=== PATIENT | male | born 1955 | race American Indian/Alaskan Native ===

== ENCOUNTER 2016-02-29 09:15 | Outpatient (CLI) | payer OTHER ==
[~2016-02-29 09:15] MED LIST: XYLOCAINE TOPICAL 4% TP ONE
[2016-02-29] MEDS ORDERED: XYLOCAINE TOPICAL 4% TP ONE ×2 (10:00→12:08)
== END 2016-02-29 09:16 | disposition home or self-care (01) ==
LOC: WOUND 09:15
PROVIDERS: ATTEND Internal Medicine
DX: E11.621 Type 2 diabetes mellitus with foot ulcer (principal); L97.511 Non-pressure chronic ulcer of other part of right foot limited to breakdown of skin; E11.40 Type 2 diabetes mellitus with diabetic neuropathy, unspecified; M86.68 Other chronic osteomyelitis, other site; I10 Essential (primary) hypertension; E78.00 Pure hypercholesterolemia, unspecified; Z87.891 Personal history of nicotine dependence

== ENCOUNTER 2016-03-14 09:16 | Outpatient (CLI) | payer OTHER ==
[2016-03-14] MEDS ORDERED: XYLOCAINE TOPICAL 2% ONE (09:39)
[2016-03-14] MEDS ORDERED: XYLOCAINE TOPICAL 2% TP ONE (14:29)
== END 2016-03-14 09:17 | disposition home or self-care (01) ==
LOC: WOUND 09:16
PROVIDERS: ATTEND Podiatrist
DX: E11.621 Type 2 diabetes mellitus with foot ulcer (principal); L97.513 Non-pressure chronic ulcer of other part of right foot with necrosis of muscle; E11.40 Type 2 diabetes mellitus with diabetic neuropathy, unspecified; E11.69 Type 2 diabetes mellitus with other specified complication; I10 Essential (primary) hypertension; E78.00 Pure hypercholesterolemia, unspecified; M86.9 Osteomyelitis, unspecified; Z87.891 Personal history of nicotine dependence

== ENCOUNTER 2016-03-17 07:47 | Outpatient (CLI) | payer OTHER | END 2016-03-17 07:48 | disposition home or self-care (01) | LOC: WOUND 07:47 | PROVIDERS: ATTEND Orthopaedic Surgery | DX: E11.621 Type 2 diabetes mellitus with foot ulcer (principal); L97.513 Non-pressure chronic ulcer of other part of right foot with necrosis of muscle; E11.40 Type 2 diabetes mellitus with diabetic neuropathy, unspecified; I10 Essential (primary) hypertension; E78.00 Pure hypercholesterolemia, unspecified; E11.69 Type 2 diabetes mellitus with other specified complication; M86.68 Other chronic osteomyelitis, other site; M86.9 Osteomyelitis, unspecified; Z87.891 Personal history of nicotine dependence | CPT/HCPCS: 82962; G0277; 99183 ==

== ENCOUNTER 2016-03-18 07:45 | Outpatient (CLI) | payer OTHER | END 2016-03-18 07:46 | disposition home or self-care (01) | LOC: WOUND 07:45 | PROVIDERS: ATTEND Podiatrist | DX: E11.621 Type 2 diabetes mellitus with foot ulcer (principal); L97.513 Non-pressure chronic ulcer of other part of right foot with necrosis of muscle; E11.40 Type 2 diabetes mellitus with diabetic neuropathy, unspecified; E11.69 Type 2 diabetes mellitus with other specified complication; M86.68 Other chronic osteomyelitis, other site; I10 Essential (primary) hypertension; E78.00 Pure hypercholesterolemia, unspecified; Z87.891 Personal history of nicotine dependence | CPT/HCPCS: 82962; G0277; 99183 ==

== ENCOUNTER 2016-03-19 07:47 | Outpatient (CLI) | payer OTHER | END 2016-03-19 07:48 | disposition home or self-care (01) | LOC: WOUND 07:47 | PROVIDERS: ATTEND Orthopaedic Surgery | DX: E11.621 Type 2 diabetes mellitus with foot ulcer (principal); L97.513 Non-pressure chronic ulcer of other part of right foot with necrosis of muscle; E11.40 Type 2 diabetes mellitus with diabetic neuropathy, unspecified; E11.69 Type 2 diabetes mellitus with other specified complication; M86.68 Other chronic osteomyelitis, other site; E78.00 Pure hypercholesterolemia, unspecified; I10 Essential (primary) hypertension; Z87.891 Personal history of nicotine dependence | CPT/HCPCS: 82962; G0277; 99183 ==

== ENCOUNTER 2016-03-20 07:44 | Outpatient (CLI) | payer OTHER | END 2016-03-20 07:45 | disposition home or self-care (01) | LOC: WOUND 07:44 | PROVIDERS: ATTEND Orthopaedic Surgery | DX: E11.621 Type 2 diabetes mellitus with foot ulcer (principal); L97.513 Non-pressure chronic ulcer of other part of right foot with necrosis of muscle; E11.40 Type 2 diabetes mellitus with diabetic neuropathy, unspecified; I10 Essential (primary) hypertension; M86.68 Other chronic osteomyelitis, other site; E78.00 Pure hypercholesterolemia, unspecified; E11.69 Type 2 diabetes mellitus with other specified complication; M86.9 Osteomyelitis, unspecified; Z87.891 Personal history of nicotine dependence | CPT/HCPCS: 82962; G0277; 99183 ==

== ENCOUNTER 2016-03-21 07:53 | Outpatient (CLI) | payer OTHER ==
[2016-03-21] MEDS ORDERED: XYLOCAINE TOPICAL 2% ONE (10:33)
[2016-03-21] MEDS ORDERED: XYLOCAINE TOPICAL 2% TP ONE (14:29)
== END 2016-03-21 07:54 | disposition home or self-care (01) ==
LOC: WOUND 07:53
PROVIDERS: ATTEND Podiatrist
DX: E11.621 Type 2 diabetes mellitus with foot ulcer (principal); L97.511 Non-pressure chronic ulcer of other part of right foot limited to breakdown of skin; E11.40 Type 2 diabetes mellitus with diabetic neuropathy, unspecified; E11.69 Type 2 diabetes mellitus with other specified complication; M86.68 Other chronic osteomyelitis, other site; Z87.891 Personal history of nicotine dependence
CPT/HCPCS: 11043; 82962; G0277; 99183

== ENCOUNTER 2016-03-24 07:51 | Outpatient (CLI) | payer OTHER | END 2016-03-24 07:52 | disposition home or self-care (01) | LOC: WOUND 07:51 | PROVIDERS: ATTEND Internal Medicine | DX: E11.621 Type 2 diabetes mellitus with foot ulcer (principal); L97.513 Non-pressure chronic ulcer of other part of right foot with necrosis of muscle; E11.40 Type 2 diabetes mellitus with diabetic neuropathy, unspecified; E11.69 Type 2 diabetes mellitus with other specified complication; M86.68 Other chronic osteomyelitis, other site; I10 Essential (primary) hypertension; E78.00 Pure hypercholesterolemia, unspecified; Z87.891 Personal history of nicotine dependence | CPT/HCPCS: G0277 ×2; 82962; 99183 ==

== ENCOUNTER 2016-03-25 07:48 | Outpatient (CLI) | payer OTHER | END 2016-03-25 07:49 | disposition home or self-care (01) | LOC: WOUND 07:48 | PROVIDERS: ATTEND Podiatrist | DX: E11.621 Type 2 diabetes mellitus with foot ulcer (principal); L97.513 Non-pressure chronic ulcer of other part of right foot with necrosis of muscle; E11.40 Type 2 diabetes mellitus with diabetic neuropathy, unspecified; E11.69 Type 2 diabetes mellitus with other specified complication; M86.68 Other chronic osteomyelitis, other site; I10 Essential (primary) hypertension; E78.00 Pure hypercholesterolemia, unspecified; Z87.891 Personal history of nicotine dependence | CPT/HCPCS: 82962; G0277; 99183 ==

== ENCOUNTER 2016-03-26 13:29 | Outpatient (CLI) | payer OTHER | END 2016-03-26 13:30 | disposition home or self-care (01) | LOC: WOUND 13:29 | PROVIDERS: ATTEND Internal Medicine | DX: E11.621 Type 2 diabetes mellitus with foot ulcer (principal); L97.513 Non-pressure chronic ulcer of other part of right foot with necrosis of muscle; E11.40 Type 2 diabetes mellitus with diabetic neuropathy, unspecified; E11.69 Type 2 diabetes mellitus with other specified complication; M86.68 Other chronic osteomyelitis, other site; I10 Essential (primary) hypertension; E78.00 Pure hypercholesterolemia, unspecified; Z87.891 Personal history of nicotine dependence | CPT/HCPCS: 82962; G0277; 99183 ==

== ENCOUNTER 2016-03-27 07:44 | Outpatient (CLI) | payer OTHER | END 2016-03-27 07:45 | disposition home or self-care (01) | LOC: WOUND 07:44 | PROVIDERS: ATTEND Internal Medicine | DX: E11.621 Type 2 diabetes mellitus with foot ulcer (principal); L97.511 Non-pressure chronic ulcer of other part of right foot limited to breakdown of skin; E11.40 Type 2 diabetes mellitus with diabetic neuropathy, unspecified; E11.69 Type 2 diabetes mellitus with other specified complication; M86.68 Other chronic osteomyelitis, other site; I10 Essential (primary) hypertension; E08.8 Diabetes mellitus due to underlying condition with unspecified complications; E78.00 Pure hypercholesterolemia, unspecified; Z87.891 Personal history of nicotine dependence | CPT/HCPCS: 82962; G0277; 99183 ==

== ENCOUNTER 2016-03-28 08:12 | Outpatient (CLI) | payer OTHER ==
[2016-03-28] MEDS ORDERED: XYLOCAINE TOPICAL 2% ONE (10:30)
[2016-03-28] MEDS ORDERED: XYLOCAINE TOPICAL 2% TP ONE (14:16)
== END 2016-03-28 08:13 | disposition home or self-care (01) ==
LOC: WOUND 08:12
PROVIDERS: ATTEND Podiatrist
DX: E11.621 Type 2 diabetes mellitus with foot ulcer (principal); L97.513 Non-pressure chronic ulcer of other part of right foot with necrosis of muscle; E11.69 Type 2 diabetes mellitus with other specified complication; M86.68 Other chronic osteomyelitis, other site; E11.40 Type 2 diabetes mellitus with diabetic neuropathy, unspecified; I10 Essential (primary) hypertension; L84 Corns and callosities; M20.40 Other hammer toe(s) (acquired), unspecified foot; E78.00 Pure hypercholesterolemia, unspecified; Z87.891 Personal history of nicotine dependence
CPT/HCPCS: 11044; G0277; 82962; 99183

== ENCOUNTER 2016-03-31 07:55 | Outpatient (CLI) | payer OTHER ==
[2016-03-31] MEDS ORDERED: XYLOCAINE TOPICAL 2% TP ONE (11:35)
== END 2016-03-31 07:56 | disposition home or self-care (01) ==
LOC: WOUND 07:55
PROVIDERS: ATTEND Internal Medicine
DX: E11.621 Type 2 diabetes mellitus with foot ulcer (principal); L97.511 Non-pressure chronic ulcer of other part of right foot limited to breakdown of skin; E11.40 Type 2 diabetes mellitus with diabetic neuropathy, unspecified; E11.69 Type 2 diabetes mellitus with other specified complication; M86.68 Other chronic osteomyelitis, other site; I10 Essential (primary) hypertension; E08.8 Diabetes mellitus due to underlying condition with unspecified complications; E78.00 Pure hypercholesterolemia, unspecified; Z87.891 Personal history of nicotine dependence
CPT/HCPCS: 82962; G0277; 99183

== ENCOUNTER 2016-04-01 08:04 | Outpatient (CLI) | payer OTHER | END 2016-04-01 08:05 | disposition home or self-care (01) | LOC: WOUND 08:04 | PROVIDERS: ATTEND Podiatrist | DX: E11.621 Type 2 diabetes mellitus with foot ulcer (principal); L97.513 Non-pressure chronic ulcer of other part of right foot with necrosis of muscle; E11.40 Type 2 diabetes mellitus with diabetic neuropathy, unspecified; E11.69 Type 2 diabetes mellitus with other specified complication; M86.68 Other chronic osteomyelitis, other site; I10 Essential (primary) hypertension; E78.00 Pure hypercholesterolemia, unspecified; Z87.891 Personal history of nicotine dependence | CPT/HCPCS: G0277 ×2; 82962; 99183 ==

== ENCOUNTER 2016-04-02 07:41 | Outpatient (CLI) | payer OTHER | END 2016-04-02 07:42 | disposition home or self-care (01) | LOC: WOUND 07:41 | PROVIDERS: ATTEND Internal Medicine | DX: E11.621 Type 2 diabetes mellitus with foot ulcer (principal); L97.511 Non-pressure chronic ulcer of other part of right foot limited to breakdown of skin; E11.40 Type 2 diabetes mellitus with diabetic neuropathy, unspecified; E11.69 Type 2 diabetes mellitus with other specified complication; M86.68 Other chronic osteomyelitis, other site; I10 Essential (primary) hypertension; E78.00 Pure hypercholesterolemia, unspecified; Z87.891 Personal history of nicotine dependence | CPT/HCPCS: 82962; G0277; 99183 ==

== ENCOUNTER 2016-04-03 07:44 | Outpatient (CLI) | payer OTHER | END 2016-04-03 07:45 | disposition home or self-care (01) | LOC: WOUND 07:44 | PROVIDERS: ATTEND Internal Medicine | DX: E11.621 Type 2 diabetes mellitus with foot ulcer (principal); L97.513 Non-pressure chronic ulcer of other part of right foot with necrosis of muscle; E11.40 Type 2 diabetes mellitus with diabetic neuropathy, unspecified; E11.69 Type 2 diabetes mellitus with other specified complication; E78.00 Pure hypercholesterolemia, unspecified; I10 Essential (primary) hypertension; M86.68 Other chronic osteomyelitis, other site; Z87.891 Personal history of nicotine dependence | CPT/HCPCS: 82962; G0277; 99183 ==

== ENCOUNTER 2016-04-04 07:40 | Outpatient (CLI) | payer OTHER ==
[2016-04-04] MEDS ORDERED: XYLOCAINE TOPICAL 4% TP ONE ×2 (10:33→11:02)
== END 2016-04-04 07:41 | disposition home or self-care (01) ==
LOC: WOUND 07:40
PROVIDERS: ATTEND Podiatrist
DX: E11.621 Type 2 diabetes mellitus with foot ulcer (principal); L97.513 Non-pressure chronic ulcer of other part of right foot with necrosis of muscle; E11.40 Type 2 diabetes mellitus with diabetic neuropathy, unspecified; E11.69 Type 2 diabetes mellitus with other specified complication; M86.68 Other chronic osteomyelitis, other site; I10 Essential (primary) hypertension; M20.41 Other hammer toe(s) (acquired), right foot; E78.00 Pure hypercholesterolemia, unspecified; Z87.891 Personal history of nicotine dependence
CPT/HCPCS: 11044; 88304; 88307; 88311; G0277; 82962; 99183

== ENCOUNTER 2016-04-07 07:52 | Outpatient (CLI) | payer OTHER | END 2016-04-07 07:53 | disposition home or self-care (01) | LOC: WOUND 07:52 | PROVIDERS: ATTEND Internal Medicine | DX: E11.621 Type 2 diabetes mellitus with foot ulcer (principal); L97.513 Non-pressure chronic ulcer of other part of right foot with necrosis of muscle; E11.40 Type 2 diabetes mellitus with diabetic neuropathy, unspecified; I10 Essential (primary) hypertension; E78.00 Pure hypercholesterolemia, unspecified; E11.69 Type 2 diabetes mellitus with other specified complication; M86.9 Osteomyelitis, unspecified; Z87.891 Personal history of nicotine dependence | CPT/HCPCS: 82962; G0277; 99183 ==

== ENCOUNTER 2016-04-08 07:51 | Outpatient (CLI) | payer OTHER | END 2016-04-08 07:52 | disposition home or self-care (01) | LOC: WOUND 07:51 | PROVIDERS: ATTEND Podiatrist | DX: E11.621 Type 2 diabetes mellitus with foot ulcer (principal); L97.513 Non-pressure chronic ulcer of other part of right foot with necrosis of muscle; E11.40 Type 2 diabetes mellitus with diabetic neuropathy, unspecified; E11.69 Type 2 diabetes mellitus with other specified complication; M86.68 Other chronic osteomyelitis, other site; I10 Essential (primary) hypertension; E78.00 Pure hypercholesterolemia, unspecified; Z87.891 Personal history of nicotine dependence | CPT/HCPCS: 82962; G0277; 99183 ==

== ENCOUNTER 2016-04-09 08:07 | Outpatient (CLI) | payer OTHER | END 2016-04-09 08:08 | disposition home or self-care (01) | LOC: WOUND 08:07 | PROVIDERS: ATTEND Internal Medicine | DX: E11.621 Type 2 diabetes mellitus with foot ulcer (principal); L97.513 Non-pressure chronic ulcer of other part of right foot with necrosis of muscle; E11.40 Type 2 diabetes mellitus with diabetic neuropathy, unspecified; E11.69 Type 2 diabetes mellitus with other specified complication; M86.68 Other chronic osteomyelitis, other site; I10 Essential (primary) hypertension; E78.00 Pure hypercholesterolemia, unspecified; Z87.891 Personal history of nicotine dependence | CPT/HCPCS: G0277 ×2; 82962; 99183 ==

== ENCOUNTER 2016-04-10 08:00 | Outpatient (CLI) | payer OTHER | END 2016-04-10 08:01 | disposition home or self-care (01) | LOC: WOUND 08:00 | PROVIDERS: ATTEND Internal Medicine | DX: E11.621 Type 2 diabetes mellitus with foot ulcer (principal); L97.513 Non-pressure chronic ulcer of other part of right foot with necrosis of muscle; E11.40 Type 2 diabetes mellitus with diabetic neuropathy, unspecified; E11.69 Type 2 diabetes mellitus with other specified complication; M86.68 Other chronic osteomyelitis, other site; I10 Essential (primary) hypertension; E78.00 Pure hypercholesterolemia, unspecified | CPT/HCPCS: 82962; G0277; 99183 ==

== ENCOUNTER 2016-04-14 07:51 | Outpatient (CLI) | payer OTHER | END 2016-04-14 07:52 | disposition home or self-care (01) | LOC: WOUND 07:51 | PROVIDERS: ATTEND Internal Medicine | DX: E11.621 Type 2 diabetes mellitus with foot ulcer (principal); L97.513 Non-pressure chronic ulcer of other part of right foot with necrosis of muscle; E11.40 Type 2 diabetes mellitus with diabetic neuropathy, unspecified; E11.69 Type 2 diabetes mellitus with other specified complication; M86.68 Other chronic osteomyelitis, other site; I10 Essential (primary) hypertension; E78.00 Pure hypercholesterolemia, unspecified; Z87.891 Personal history of nicotine dependence | CPT/HCPCS: 82962; G0277; 99183 ==

== ENCOUNTER 2016-04-15 07:42 | Outpatient (CLI) | payer OTHER | END 2016-04-15 07:43 | disposition home or self-care (01) | LOC: WOUND 07:42 | PROVIDERS: ATTEND Podiatrist | DX: E11.621 Type 2 diabetes mellitus with foot ulcer (principal); L97.513 Non-pressure chronic ulcer of other part of right foot with necrosis of muscle; E11.40 Type 2 diabetes mellitus with diabetic neuropathy, unspecified; E11.69 Type 2 diabetes mellitus with other specified complication; M86.68 Other chronic osteomyelitis, other site; I10 Essential (primary) hypertension; E78.00 Pure hypercholesterolemia, unspecified; Z87.891 Personal history of nicotine dependence | CPT/HCPCS: 82962; G0277; 99183 ==

== ENCOUNTER 2016-04-16 07:39 | Outpatient (CLI) | payer OTHER | END 2016-04-16 07:40 | disposition home or self-care (01) | LOC: WOUND 07:39 | PROVIDERS: ATTEND Internal Medicine | DX: E11.621 Type 2 diabetes mellitus with foot ulcer (principal); L97.513 Non-pressure chronic ulcer of other part of right foot with necrosis of muscle; E11.40 Type 2 diabetes mellitus with diabetic neuropathy, unspecified; I10 Essential (primary) hypertension; E11.69 Type 2 diabetes mellitus with other specified complication; M86.68 Other chronic osteomyelitis, other site; E78.00 Pure hypercholesterolemia, unspecified; Z87.891 Personal history of nicotine dependence | CPT/HCPCS: 82962; G0277; 99183 ==

== ENCOUNTER 2016-04-17 07:37 | Outpatient (CLI) | payer OTHER | END 2016-04-17 07:38 | disposition home or self-care (01) | LOC: WOUND 07:37 | PROVIDERS: ATTEND Nurse Practitioner | DX: E11.621 Type 2 diabetes mellitus with foot ulcer (principal); L97.513 Non-pressure chronic ulcer of other part of right foot with necrosis of muscle; E11.40 Type 2 diabetes mellitus with diabetic neuropathy, unspecified; E11.69 Type 2 diabetes mellitus with other specified complication; M86.68 Other chronic osteomyelitis, other site; I10 Essential (primary) hypertension; E78.00 Pure hypercholesterolemia, unspecified; Z87.891 Personal history of nicotine dependence | CPT/HCPCS: 82962; G0277; 99183 ==

== ENCOUNTER 2016-04-18 07:49 | Outpatient (CLI) | payer OTHER ==
[2016-04-18] MEDS ORDERED: XYLOCAINE TOPICAL 2% ONE (11:51)
[2016-04-18] MEDS ORDERED: XYLOCAINE TOPICAL 2% TP ONE (16:03)
== END 2016-04-18 07:50 | disposition home or self-care (01) ==
LOC: WOUND 07:49
PROVIDERS: ATTEND Podiatrist
DX: E11.621 Type 2 diabetes mellitus with foot ulcer (principal); L97.513 Non-pressure chronic ulcer of other part of right foot with necrosis of muscle; E11.40 Type 2 diabetes mellitus with diabetic neuropathy, unspecified; I10 Essential (primary) hypertension; E11.69 Type 2 diabetes mellitus with other specified complication; M86.68 Other chronic osteomyelitis, other site; L84 Corns and callosities; E78.00 Pure hypercholesterolemia, unspecified; Z87.891 Personal history of nicotine dependence
CPT/HCPCS: 11043; 82962; 88304; 88311; G0277; 99183

== ENCOUNTER 2016-04-21 07:56 | Outpatient (CLI) | payer OTHER | END 2016-04-21 07:57 | disposition home or self-care (01) | LOC: WOUND 07:56 | PROVIDERS: ATTEND Internal Medicine | DX: E11.621 Type 2 diabetes mellitus with foot ulcer (principal); L97.511 Non-pressure chronic ulcer of other part of right foot limited to breakdown of skin; E11.40 Type 2 diabetes mellitus with diabetic neuropathy, unspecified; E11.69 Type 2 diabetes mellitus with other specified complication; M86.68 Other chronic osteomyelitis, other site; I10 Essential (primary) hypertension; E78.00 Pure hypercholesterolemia, unspecified; F17.210 Nicotine dependence, cigarettes, uncomplicated | CPT/HCPCS: 82962; G0277; 99183 ==

== ENCOUNTER 2016-04-22 07:47 | Outpatient (CLI) | payer OTHER | END 2016-04-22 07:48 | disposition home or self-care (01) | LOC: WOUND 07:47 | PROVIDERS: ATTEND Podiatrist | DX: E11.621 Type 2 diabetes mellitus with foot ulcer (principal); L97.513 Non-pressure chronic ulcer of other part of right foot with necrosis of muscle; E11.40 Type 2 diabetes mellitus with diabetic neuropathy, unspecified; I10 Essential (primary) hypertension; E11.69 Type 2 diabetes mellitus with other specified complication; M86.8X8 Other osteomyelitis, other site; E78.00 Pure hypercholesterolemia, unspecified; Z87.891 Personal history of nicotine dependence | CPT/HCPCS: 82962; G0277; 99183 ==

== ENCOUNTER 2016-04-25 07:54 | Outpatient (CLI) | payer OTHER | END 2016-04-25 07:55 | disposition home or self-care (01) | LOC: WOUND 07:54 | PROVIDERS: ATTEND Podiatrist | DX: E11.621 Type 2 diabetes mellitus with foot ulcer (principal); L97.513 Non-pressure chronic ulcer of other part of right foot with necrosis of muscle; E11.40 Type 2 diabetes mellitus with diabetic neuropathy, unspecified; E11.69 Type 2 diabetes mellitus with other specified complication; M86.68 Other chronic osteomyelitis, other site; I10 Essential (primary) hypertension; E78.00 Pure hypercholesterolemia, unspecified; Z87.891 Personal history of nicotine dependence | CPT/HCPCS: 11043; 82962; G0277; 99183 ==

== ENCOUNTER 2016-05-01 07:43 | Outpatient (CLI) | payer OTHER | END 2016-05-01 07:44 | disposition home or self-care (01) | LOC: WOUND 07:43 | PROVIDERS: ATTEND Internal Medicine | DX: E11.621 Type 2 diabetes mellitus with foot ulcer (principal); L97.513 Non-pressure chronic ulcer of other part of right foot with necrosis of muscle; E11.40 Type 2 diabetes mellitus with diabetic neuropathy, unspecified; M86.68 Other chronic osteomyelitis, other site; I10 Essential (primary) hypertension; E78.00 Pure hypercholesterolemia, unspecified; Z87.891 Personal history of nicotine dependence | CPT/HCPCS: 82962; G0277; 99183 ==

== ENCOUNTER 2016-05-05 07:56 | Outpatient (CLI) | payer OTHER | END 2016-05-05 07:57 | disposition home or self-care (01) | LOC: WOUND 07:56 | PROVIDERS: ATTEND Internal Medicine | DX: E11.621 Type 2 diabetes mellitus with foot ulcer (principal); L97.513 Non-pressure chronic ulcer of other part of right foot with necrosis of muscle; E11.40 Type 2 diabetes mellitus with diabetic neuropathy, unspecified; E11.69 Type 2 diabetes mellitus with other specified complication; M86.8X8 Other osteomyelitis, other site; I10 Essential (primary) hypertension; E78.00 Pure hypercholesterolemia, unspecified; Z87.891 Personal history of nicotine dependence | CPT/HCPCS: 82962; G0277; 99183 ==

== ENCOUNTER 2016-05-06 08:00 | Outpatient (CLI) | payer OTHER | END 2016-05-06 08:01 | disposition home or self-care (01) | LOC: WOUND 08:00 | PROVIDERS: ATTEND Podiatrist | DX: E11.621 Type 2 diabetes mellitus with foot ulcer (principal); L97.513 Non-pressure chronic ulcer of other part of right foot with necrosis of muscle; E11.40 Type 2 diabetes mellitus with diabetic neuropathy, unspecified; E11.69 Type 2 diabetes mellitus with other specified complication; M86.68 Other chronic osteomyelitis, other site; I10 Essential (primary) hypertension; E78.00 Pure hypercholesterolemia, unspecified; Z87.891 Personal history of nicotine dependence | CPT/HCPCS: 82962; G0277; 99183 ==

== ENCOUNTER 2016-05-07 08:05 | Outpatient (CLI) | payer OTHER | END 2016-05-07 08:06 | disposition home or self-care (01) | LOC: WOUND 08:05 | PROVIDERS: ATTEND Internal Medicine | DX: E11.621 Type 2 diabetes mellitus with foot ulcer (principal); L97.513 Non-pressure chronic ulcer of other part of right foot with necrosis of muscle; E11.40 Type 2 diabetes mellitus with diabetic neuropathy, unspecified; I10 Essential (primary) hypertension; E11.69 Type 2 diabetes mellitus with other specified complication; M86.8X8 Other osteomyelitis, other site; Q89.9 Congenital malformation, unspecified; E78.00 Pure hypercholesterolemia, unspecified; Z87.891 Personal history of nicotine dependence | CPT/HCPCS: 82962; G0277; 99183; 99214; G0463 ==

== ENCOUNTER 2016-05-08 07:45 | Outpatient (CLI) | payer OTHER | END 2016-05-08 07:46 | disposition home or self-care (01) | LOC: WOUND 07:45 | PROVIDERS: ATTEND Internal Medicine | DX: E11.621 Type 2 diabetes mellitus with foot ulcer (principal); L97.511 Non-pressure chronic ulcer of other part of right foot limited to breakdown of skin; E11.40 Type 2 diabetes mellitus with diabetic neuropathy, unspecified; E11.69 Type 2 diabetes mellitus with other specified complication; M86.68 Other chronic osteomyelitis, other site; I10 Essential (primary) hypertension; E78.00 Pure hypercholesterolemia, unspecified; Z87.891 Personal history of nicotine dependence | CPT/HCPCS: G0277 ×2; 82962; 99183 ==

== ENCOUNTER 2016-05-09 07:54 | Outpatient (CLI) | payer OTHER ==
[2016-05-09] MEDS ORDERED: XYLOCAINE TOPICAL 4% TP ONE ×2 (10:59→11:26)
== END 2016-05-09 07:55 | disposition home or self-care (01) ==
LOC: WOUND 07:54
PROVIDERS: ATTEND Podiatrist
DX: E11.621 Type 2 diabetes mellitus with foot ulcer (principal); L97.511 Non-pressure chronic ulcer of other part of right foot limited to breakdown of skin; E11.40 Type 2 diabetes mellitus with diabetic neuropathy, unspecified; E11.69 Type 2 diabetes mellitus with other specified complication; M86.68 Other chronic osteomyelitis, other site; I10 Essential (primary) hypertension; E78.00 Pure hypercholesterolemia, unspecified; Z87.891 Personal history of nicotine dependence
CPT/HCPCS: 11043; G0277; 82962; 99183

== ENCOUNTER 2016-05-12 08:04 | Outpatient (CLI) | payer OTHER | END 2016-05-12 08:05 | disposition home or self-care (01) | LOC: WOUND 08:04 | PROVIDERS: ATTEND Internal Medicine | DX: E11.621 Type 2 diabetes mellitus with foot ulcer (principal); L97.513 Non-pressure chronic ulcer of other part of right foot with necrosis of muscle; E11.40 Type 2 diabetes mellitus with diabetic neuropathy, unspecified; E11.69 Type 2 diabetes mellitus with other specified complication; M86.68 Other chronic osteomyelitis, other site; I10 Essential (primary) hypertension; E78.00 Pure hypercholesterolemia, unspecified; Z87.891 Personal history of nicotine dependence | CPT/HCPCS: 82962; G0277; 99183 ==

== ENCOUNTER 2016-05-14 08:10 | Outpatient (CLI) | payer OTHER | END 2016-05-14 08:11 | disposition home or self-care (01) | LOC: WOUND 08:10 | PROVIDERS: ATTEND Internal Medicine | DX: E11.621 Type 2 diabetes mellitus with foot ulcer (principal); L97.513 Non-pressure chronic ulcer of other part of right foot with necrosis of muscle; E11.40 Type 2 diabetes mellitus with diabetic neuropathy, unspecified; E11.69 Type 2 diabetes mellitus with other specified complication; M86.68 Other chronic osteomyelitis, other site; I10 Essential (primary) hypertension; Z87.891 Personal history of nicotine dependence | CPT/HCPCS: 82962; G0277; 99183 ==

== ENCOUNTER 2016-05-15 07:51 | Outpatient (CLI) | payer OTHER | END 2016-05-15 07:52 | disposition home or self-care (01) | LOC: WOUND 07:51 | PROVIDERS: ATTEND Internal Medicine | DX: E11.621 Type 2 diabetes mellitus with foot ulcer (principal); L97.513 Non-pressure chronic ulcer of other part of right foot with necrosis of muscle; E11.40 Type 2 diabetes mellitus with diabetic neuropathy, unspecified; E11.69 Type 2 diabetes mellitus with other specified complication; M86.68 Other chronic osteomyelitis, other site; I10 Essential (primary) hypertension; E78.00 Pure hypercholesterolemia, unspecified; Z87.891 Personal history of nicotine dependence | CPT/HCPCS: 82962; G0277; 99183 ==

== ENCOUNTER 2016-05-19 07:47 | Outpatient (CLI) | payer OTHER | END 2016-05-19 07:48 | disposition home or self-care (01) | LOC: WOUND 07:47 | PROVIDERS: ATTEND Internal Medicine | DX: E11.621 Type 2 diabetes mellitus with foot ulcer (principal); L97.511 Non-pressure chronic ulcer of other part of right foot limited to breakdown of skin; E11.40 Type 2 diabetes mellitus with diabetic neuropathy, unspecified; E11.69 Type 2 diabetes mellitus with other specified complication; M86.68 Other chronic osteomyelitis, other site; I10 Essential (primary) hypertension; E78.00 Pure hypercholesterolemia, unspecified; Z87.891 Personal history of nicotine dependence | CPT/HCPCS: 82962; G0277; 99183 ==

== ENCOUNTER 2016-05-20 07:47 | Outpatient (CLI) | payer OTHER | END 2016-05-20 07:48 | disposition home or self-care (01) | LOC: WOUND 07:47 | PROVIDERS: ATTEND Podiatrist | DX: T87.89 Other complications of amputation stump (principal); E11.621 Type 2 diabetes mellitus with foot ulcer; L97.511 Non-pressure chronic ulcer of other part of right foot limited to breakdown of skin; E11.40 Type 2 diabetes mellitus with diabetic neuropathy, unspecified; E11.69 Type 2 diabetes mellitus with other specified complication; M86.68 Other chronic osteomyelitis, other site; I10 Essential (primary) hypertension; E78.00 Pure hypercholesterolemia, unspecified; Z87.891 Personal history of nicotine dependence; Z89.421 Acquired absence of other right toe(s); Z47.81 Encounter for orthopedic aftercare following surgical amputation; Y83.5 Amputation of limb(s) as the cause of abnormal reaction of the patient, or of later complication, without mention of misadventure at the time of the procedure | CPT/HCPCS: 82962; 87899; G0277; G0463; 99183; 99214 ==

== ENCOUNTER 2016-05-21 08:14 | Outpatient (CLI) | payer OTHER | END 2016-05-21 08:15 | disposition home or self-care (01) | LOC: WOUND 08:14 | PROVIDERS: ATTEND Podiatrist | DX: E11.40 Type 2 diabetes mellitus with diabetic neuropathy, unspecified (principal); T87.89 Other complications of amputation stump; Z89.421 Acquired absence of other right toe(s); I10 Essential (primary) hypertension; E78.00 Pure hypercholesterolemia, unspecified; E11.69 Type 2 diabetes mellitus with other specified complication; M86.8X7 Other osteomyelitis, ankle and foot; Z87.891 Personal history of nicotine dependence; Y83.5 Amputation of limb(s) as the cause of abnormal reaction of the patient, or of later complication, without mention of misadventure at the time of the procedure | CPT/HCPCS: 82962; G0277; 99183 ==

== ENCOUNTER 2016-05-22 07:59 | Outpatient (CLI) | payer OTHER | END 2016-05-22 08:00 | disposition home or self-care (01) | LOC: WOUND 07:59 | PROVIDERS: ATTEND Internal Medicine | DX: E11.621 Type 2 diabetes mellitus with foot ulcer (principal); L97.511 Non-pressure chronic ulcer of other part of right foot limited to breakdown of skin; E08.8 Diabetes mellitus due to underlying condition with unspecified complications; I10 Essential (primary) hypertension; E78.00 Pure hypercholesterolemia, unspecified; E11.69 Type 2 diabetes mellitus with other specified complication; M86.8X7 Other osteomyelitis, ankle and foot; Z47.81 Encounter for orthopedic aftercare following surgical amputation; Z89.421 Acquired absence of other right toe(s); Z87.891 Personal history of nicotine dependence | CPT/HCPCS: 82962; G0277; 99183 ==

== ENCOUNTER 2016-05-23 07:49 | Outpatient (CLI) | payer OTHER | END 2016-05-23 07:50 | disposition home or self-care (01) | LOC: WOUND 07:49 | PROVIDERS: ATTEND Podiatrist | DX: E11.621 Type 2 diabetes mellitus with foot ulcer (principal); L97.511 Non-pressure chronic ulcer of other part of right foot limited to breakdown of skin; E11.40 Type 2 diabetes mellitus with diabetic neuropathy, unspecified; Z47.81 Encounter for orthopedic aftercare following surgical amputation; Z89.421 Acquired absence of other right toe(s); I10 Essential (primary) hypertension; E78.00 Pure hypercholesterolemia, unspecified; E11.69 Type 2 diabetes mellitus with other specified complication; M86.8X7 Other osteomyelitis, ankle and foot; Z87.891 Personal history of nicotine dependence | CPT/HCPCS: 82962; G0277; 99183 ==

== ENCOUNTER 2016-05-27 08:12 | Outpatient (CLI) | payer OTHER | END 2016-05-27 08:13 | disposition home or self-care (01) | LOC: WOUND 08:12 | PROVIDERS: ATTEND Internal Medicine | DX: T87.89 Other complications of amputation stump (principal); E11.40 Type 2 diabetes mellitus with diabetic neuropathy, unspecified; L84 Corns and callosities; I10 Essential (primary) hypertension; E78.00 Pure hypercholesterolemia, unspecified; E11.69 Type 2 diabetes mellitus with other specified complication; M86.8X8 Other osteomyelitis, other site; Z87.891 Personal history of nicotine dependence; Y83.5 Amputation of limb(s) as the cause of abnormal reaction of the patient, or of later complication, without mention of misadventure at the time of the procedure | CPT/HCPCS: 82962; G0277; G0463; 99183; 99214 ==

== ENCOUNTER 2016-05-28 07:49 | Outpatient (CLI) | payer OTHER | END 2016-05-28 07:50 | disposition home or self-care (01) | LOC: WOUND 07:49 | PROVIDERS: ATTEND Internal Medicine | DX: E11.621 Type 2 diabetes mellitus with foot ulcer (principal); L97.511 Non-pressure chronic ulcer of other part of right foot limited to breakdown of skin | CPT/HCPCS: 82962; G0277; 99183 ==

== ENCOUNTER 2016-05-29 07:37 | Outpatient (CLI) | payer OTHER | END 2016-05-29 07:38 | disposition home or self-care (01) | LOC: WOUND 07:37 | PROVIDERS: ATTEND Internal Medicine | DX: T87.89 Other complications of amputation stump (principal); E11.40 Type 2 diabetes mellitus with diabetic neuropathy, unspecified; L84 Corns and callosities; I10 Essential (primary) hypertension; E78.00 Pure hypercholesterolemia, unspecified; E11.69 Type 2 diabetes mellitus with other specified complication; M86.8X8 Other osteomyelitis, other site; Y83.5 Amputation of limb(s) as the cause of abnormal reaction of the patient, or of later complication, without mention of misadventure at the time of the procedure | CPT/HCPCS: 82962; G0277; 99183 ==

== ENCOUNTER 2016-05-30 07:29 | Outpatient (CLI) | payer OTHER | END 2016-05-30 07:30 | disposition home or self-care (01) | LOC: WOUND 07:29 | PROVIDERS: ATTEND Podiatrist | DX: T87.89 Other complications of amputation stump (principal); E11.40 Type 2 diabetes mellitus with diabetic neuropathy, unspecified; B35.1 Tinea unguium; Q89.9 Congenital malformation, unspecified; I10 Essential (primary) hypertension; E78.00 Pure hypercholesterolemia, unspecified; E11.69 Type 2 diabetes mellitus with other specified complication; M86.8X8 Other osteomyelitis, other site; Z87.891 Personal history of nicotine dependence; Y83.5 Amputation of limb(s) as the cause of abnormal reaction of the patient, or of later complication, without mention of misadventure at the time of the procedure | CPT/HCPCS: 11721; 82962; G0277; 99183 ==

== ENCOUNTER 2016-06-02 07:49 | Outpatient (CLI) | payer OTHER | END 2016-06-02 07:50 | disposition home or self-care (01) | LOC: WOUND 07:49 | PROVIDERS: ATTEND Internal Medicine | DX: E11.621 Type 2 diabetes mellitus with foot ulcer (principal); L97.512 Non-pressure chronic ulcer of other part of right foot with fat layer exposed; E11.40 Type 2 diabetes mellitus with diabetic neuropathy, unspecified; I10 Essential (primary) hypertension; E78.00 Pure hypercholesterolemia, unspecified; E11.69 Type 2 diabetes mellitus with other specified complication; M86.9 Osteomyelitis, unspecified; Z87.891 Personal history of nicotine dependence | CPT/HCPCS: 82962; G0277; 99183 ==

== ENCOUNTER 2016-06-03 07:42 | Outpatient (CLI) | payer OTHER | END 2016-06-03 07:43 | disposition home or self-care (01) | LOC: WOUND 07:42 | PROVIDERS: ATTEND Podiatrist | DX: T87.89 Other complications of amputation stump (principal); E11.621 Type 2 diabetes mellitus with foot ulcer; L97.511 Non-pressure chronic ulcer of other part of right foot limited to breakdown of skin; E11.40 Type 2 diabetes mellitus with diabetic neuropathy, unspecified; E78.00 Pure hypercholesterolemia, unspecified; I10 Essential (primary) hypertension; E11.69 Type 2 diabetes mellitus with other specified complication; M86.9 Osteomyelitis, unspecified; L84 Corns and callosities; Z87.891 Personal history of nicotine dependence; Y83.5 Amputation of limb(s) as the cause of abnormal reaction of the patient, or of later complication, without mention of misadventure at the time of the procedure | CPT/HCPCS: 82962; G0277; G0463; 99183; 99214 ==

== ENCOUNTER 2016-06-04 07:46 | Outpatient (CLI) | payer OTHER | END 2016-06-04 07:47 | disposition home or self-care (01) | LOC: WOUND 07:46 | PROVIDERS: ATTEND Internal Medicine | DX: T87.89 Other complications of amputation stump (principal); E11.40 Type 2 diabetes mellitus with diabetic neuropathy, unspecified; E08.8 Diabetes mellitus due to underlying condition with unspecified complications; I10 Essential (primary) hypertension; E78.00 Pure hypercholesterolemia, unspecified; E11.69 Type 2 diabetes mellitus with other specified complication; M86.8X8 Other osteomyelitis, other site; Z47.81 Encounter for orthopedic aftercare following surgical amputation; Z87.891 Personal history of nicotine dependence; Y83.5 Amputation of limb(s) as the cause of abnormal reaction of the patient, or of later complication, without mention of misadventure at the time of the procedure | CPT/HCPCS: 82962; G0277; 99183 ==

== ENCOUNTER 2016-06-05 07:52 | Outpatient (CLI) | payer OTHER | END 2016-06-05 07:53 | disposition home or self-care (01) | LOC: WOUND 07:52 | PROVIDERS: ATTEND Internal Medicine | DX: E11.621 Type 2 diabetes mellitus with foot ulcer (principal); L97.513 Non-pressure chronic ulcer of other part of right foot with necrosis of muscle; E11.40 Type 2 diabetes mellitus with diabetic neuropathy, unspecified; E11.69 Type 2 diabetes mellitus with other specified complication; M86.68 Other chronic osteomyelitis, other site; I10 Essential (primary) hypertension; E78.00 Pure hypercholesterolemia, unspecified; Z87.891 Personal history of nicotine dependence; Z89.421 Acquired absence of other right toe(s) | CPT/HCPCS: 82962; G0277; 99183 ==

== ENCOUNTER 2016-06-06 08:10 | Outpatient (CLI) | payer OTHER | END 2016-06-06 08:11 | disposition home or self-care (01) | LOC: WOUND 08:10 | PROVIDERS: ATTEND Podiatrist | DX: E11.621 Type 2 diabetes mellitus with foot ulcer (principal); L97.513 Non-pressure chronic ulcer of other part of right foot with necrosis of muscle; E11.40 Type 2 diabetes mellitus with diabetic neuropathy, unspecified; L84 Corns and callosities; I10 Essential (primary) hypertension; E78.00 Pure hypercholesterolemia, unspecified; E11.69 Type 2 diabetes mellitus with other specified complication; M86.9 Osteomyelitis, unspecified; Q89.8 Other specified congenital malformations; Z87.891 Personal history of nicotine dependence | CPT/HCPCS: 82962; G0277; G0463; 99183; 99214 ==

== ENCOUNTER 2016-06-13 09:42 | Outpatient (CLI) | payer OTHER | END 2016-06-13 09:43 | disposition home or self-care (01) | LOC: WOUND 09:42 | PROVIDERS: ATTEND Podiatrist | DX: E11.621 Type 2 diabetes mellitus with foot ulcer (principal); L97.511 Non-pressure chronic ulcer of other part of right foot limited to breakdown of skin; E11.40 Type 2 diabetes mellitus with diabetic neuropathy, unspecified; I10 Essential (primary) hypertension; E78.00 Pure hypercholesterolemia, unspecified; E11.69 Type 2 diabetes mellitus with other specified complication; M86.8X7 Other osteomyelitis, ankle and foot; Z47.81 Encounter for orthopedic aftercare following surgical amputation; Z89.421 Acquired absence of other right toe(s); Z87.891 Personal history of nicotine dependence | CPT/HCPCS: 99213; G0463 ==

== ENCOUNTER 2017-01-27 17:28 | Inpatient (IN) | payer OTHER ==
[2017-01-27 18:57] LABS: Basophils % (Auto) 1.1 % (0.0-1.8); Eosinophils % (Auto) 0.9 % (0.0-4.3); Mean Corpuscular HGB Conc 31 % (32-34); Mean Corpuscular Volume 83 fl (84-94); Platelet Count 160 K/mm3 (140-440); Red Blood Count 5.13 M/mm3 (3.65-5.03); Red Cell Distribution Width 17.5 % (13.2-15.2); White Blood Count 5.8 K/mm3 (4.5-11.0)
[2017-01-27 19:03] LABS: Hematocrit 42.4 % (35.5-45.6); Mean Corpuscular Hemoglobin 25 pg (28-32)
[2017-01-27 19:10] LABS: Chloride 103.3 mmol/L (98-107); Potassium 4.6 mmol/L (3.6-5.0)
[2017-01-27] MEDS ORDERED: LASIX IV ONE (20:25)
[2017-01-27] MEDS ORDERED: PROVENTIL IH ONE (20:25)
--- NOTE | 2017-01-27 20:32 | Emergency Department Report ---
ED Shortness of Breath HPI - General Chief Complaint: Dyspnea/Respdistress Stated Complaint: SHORTNESS OF BREATH Time Seen by Provider: 01/27/17 20:06 Source: patient Mode of arrival: Ambulatory Limitations: No Limitations - History of Present Illness Initial Comments: 61 yo male who comes in today due to worsening shortness of breath since November. He states that the sob gets worse with walking and exertion. Admits to a hx of of diabetes, htn, dyslipidemia, and chronic kidney disease. Denies chest pain currently. MD Complaint: shortness of breath -: month(s) (two months ) Consistency: constant Improves With: oxygen Worsens With: exertion, movement Known History Of: diabetes, other (htn, dyslipidemia, chronic kidney disease ) Associated Symptoms: other (bilateral lower extremity edema ) Treatments Prior to Arrival: none - Related Data Home Oxygen Therapy: No Home Medications Medication Instructions Recorded Confirmed Last Taken Clopidogrel [Plavix] 75 mg PO QDAY 05/07/16 12/20/16 05/15/16 Previous Rx's Medication Instructions Recorded Last Taken Type Insulin Glargine [Lantus VIAL] 12 units SUB-Q QHS #1 units 02/18/14 05/15/16 Rx Insulin NPH, Human [NovoLIN N] 6 unit SUB-Q AC #1 units 02/18/14 05/15/16 Rx amLODIPine [Norvasc] 10 mg PO QDAY #30 tablet 02/18/14 05/16/16 08:00 Rx Clindamycin [Clindamycin CAP] 300 mg PO QID #20 capsule 12/25/16 Unknown Rx HYDROcodone/APAP 7.5-325 [Vega 1 each PO BID PRN #10 tablet 12/25/16 Unknown Rx 7.5-325 mg TAB] Losartan [Cozaar] 50 mg PO QDAY #30 tablet 12/25/16 Unknown Rx Metoprolol [Lopressor TAB] 25 mg PO BID #60 tablet 12/25/16 Unknown Rx Allergies Allergy/AdvReac Type Severity Reaction Status Date / Time No Known Allergies Allergy Verified 01/27/17 17:48 ED Review of Systems ROS: Stated complaint: SHORTNESS OF BREATH Other details as noted in HPI Constitutional: denies: chills, fever Eyes: denies: eye pain, eye discharge, vision change ENT: denies: ear pain, throat pain Respiratory: see HPI Cardiovascular: denies: chest pain, palpitations Endocrine: no symptoms reported Gastrointestinal: denies: abdominal pain, nausea, diarrhea Genitourinary: denies: urgency, dysuria Musculoskeletal: denies: back pain, joint swelling, arthralgia Skin: denies: rash, lesions Neurological: denies: headache, weakness, paresthesias Psychiatric: denies: anxiety, depression Hematological/Lymphatic: other (bilateral lower extremity edema ) ED Past Medical Hx - Past Medical History Previous Medical History?: Yes Hx Hypertension: Yes Hx Diabetes: Yes Hx Deep Vein Thrombosis: No (PT DENIES THIS) Hx Arthritis: Yes Additional medical history: Elevated cholesterol - Surgical History Past Surgical History?: Yes Additional Surgical History: R foot. - Social History Smoking Status: Former Smoker Substance Use Type: None - Medications Home Medications: Home Medications Medication Instructions Recorded Confirmed Last Taken Type Insulin Glargine [Lantus VIAL] 12 units SUB-Q QHS #1 units 02/18/14 12/20/16 Rx Insulin NPH, Human [NovoLIN N] 6 unit SUB-Q AC #1 units 02/18/14 12/20/16 Rx amLODIPine [Norvasc] 10 mg PO QDAY #30 tablet 02/18/14 12/20/16 05/16/16 08:00 Rx Clopidogrel [Plavix] 75 mg PO QDAY 05/07/16 12/20/16 05/15/16 History Clindamycin [Clindamycin CAP] 300 mg PO QID #20 capsule 12/25/16 Unknown Rx HYDROcodone/APAP 7.5-325 [Vega 1 each PO BID PRN #10 tablet 12/25/16 Unknown Rx 7.5-325 mg TAB] Losartan [Cozaar] 50 mg PO QDAY #30 tablet 12/25/16 Unknown Rx Metoprolol [Lopressor TAB] 25 mg PO BID #60 tablet 12/25/16 Unknown Rx ED Physical Exam - General Limitations: No Limitations General appearance: alert, in no apparent distress - Head Head exam: Present: atraumatic, normocephalic - Eye Eye exam: Present: normal appearance - Respiratory Respiratory exam: Present: other (crackles mid lung fischer-bilaterally ) - Cardiovascular Cardiovascular Exam: Present: normal rhythm (PVC's) - GI/Abdominal GI/Abdominal exam: Present: soft, normal bowel sounds - Extremities Exam Extremities exam: Present: pedal edema, other (bilateral lower extremity edema ) - Neurological Exam Neurological exam: Present: oriented X3 - Psychiatric Psychiatric exam: Present: normal affect, normal mood - Skin Skin exam: Present: warm, dry, intact, normal color. Absent: rash ED Course Vital Signs 01/27/17 01/27/17 01/27/17 17:48 19:00 19:30 Temperature 97.4 F L Pulse Rate 89 95 H 94 H Pulse Rate [ Anterior Bilateral Throughout] Respiratory 22 39 H Rate Respiratory Rate [Anterior Bilateral Throughout] Blood Pressure 176/105 172/110 167/107 O2 Sat by Pulse 98 96 100 Oximetry 01/27/17 01/27/17 01/27/17 20:01 20:10 20:30 Temperature Pulse Rate 97 H 99 H Pulse Rate [ Anterior Bilateral Throughout] Respiratory 29 H 36 H 27 H Rate Respiratory Rate [Anterior Bilateral Throughout] Blood Pressure 167/107 164/106 O2 Sat by Pulse 99 99 99 Oximetry 01/27/17 01/27/17 01/27/17 21:00 21:16 21:30 Temperature Pulse Rate 102 H 100 H Pulse Rate [ 101 H 99 H Anterior Bilateral Throughout] Respiratory 31 H 30 H Rate Respiratory 33 H 30 H Rate [Anterior Bilateral Throughout] Blood Pressure 166/108 176/107 O2 Sat by Pulse 99 96 Oximetry - Reevaluation(s) Reevaluation #1: 01/27/17 23:05 V/Q Scan low probability for pulmonary embolus. Plan to admit to the hospital for Cardiology/Pulmonary evaluation. ED Medical Decision Making - Lab Data Result diagrams: 01/27/17 18:12 01/27/17 18:12 - EKG Data -: EKG Interpreted by Me (Unchanged from a prior EKG dated 12/19/2016) EKG shows normal: sinus rhythm (with nonspecific st-t wave changes ) Rate: normal - EKG Data When compared to previous EKG there are: no significant change Interpretation: no acute changes, nonspecific ST-T wave sarah - Radiology Data Radiology results: report reviewed (Negative probability for pulmonary embolus ) Critical care attestation.: If time is entered above; I have spent that time in minutes in the direct care of this critically ill patient, excluding procedure time. ED Disposition Clinical Impression: Congestive heart failure, Pleural effusion, Chronic renal insufficiency, Dyspnea Disposition: DC-09 OP ADMIT IP TO THIS HOSP Is pt being admited?: Yes Does the pt Need Aspirin: No Condition: Stable Referrals: PRIMARY CARE, [Primary Care Provider] - 3-5 Days Time of Disposition: 23:23
[2017-01-27] MEDS ORDERED: ASPIRIN PO ONE (20:36)
[2017-01-27 20:50] LABS: INR 1.02 (0.87-1.13)
[2017-01-27 20:51] LABS: Partial Thromboplastin Time 30.3 Sec. (24.2-36.6)
--- NOTE | 2017-01-27 22:30 | Nuclear Medicine Report ---
FINAL REPORT PROCEDURE: NM LUNG SCAN PERF/VENT TECHNIQUE: Five mCi Tc-99m MAA was injected IV for pulmonary perfusion imaging in multiple projections. 15 mCi xenon 133 gas was inhaled for pulmonary ventilation imaging in multiple projections. Injection site: Unknown. CPT 46922 REGULATORY GUIDELINES: The patient was released based upon guidelines established in [place] Regulations for Protection Against Radiation, Chapter 4323-55-96-35, Release of Individuals Containing Radioactive Drugs or Implants. HISTORY: shortness of breath COMPARISON: No prior studies are available for comparison. FINDINGS: Matched ventilation-perfusion small nonsegmental perfusion defect is noted involving lateral inferior right hemithorax. This corresponds to mild degree pleural effusion noted on the chest radiograph.. . IMPRESSION: According to modified PIOPED criteria findings are consistent with low probability for pulmonary embolism.
[2017-01-28] MEDS ORDERED: TYLENOL #3 PO PRN (04:53)
[2017-01-28] MEDS ORDERED: ZOFRAN IV PRN (04:53)
--- NOTE | 2017-01-28 07:32 | XRay Report ---
ROUTINE CHEST, TWO VIEWS: HISTORY: Shortness of breath. Compared to 12/19/16. Borderline heart size. Mild vascular congestion and small right pleural effusion have developed. There is segmental atelectasis at the right lung base. No large consolidation or pneumothorax. The bony structures are grossly intact. IMPRESSION: Consider mild CHF which appears to be new.
[2017-01-28] MEDS ORDERED: PROVENTIL IH PRN (08:38)
--- NOTE | 2017-01-28 08:38 | History and Physical Report ---
<SIVAN ADAMS - Last Filed: 01/28/17 16:44> History of Present Illness Date of examination: 01/28/17 Date of admission: 01/28/17 04:52 Chief complaint: 01/28/2017 History of present illness: Patient is a 61 years old male with past history past medical history of hypertension, systolic congestive heart failure, hyperlipidemia, chronic kidney failure stage III and diabetes mellitus. He has had progressive worsening of shortness of breath since November. Patient developed difficulty of breathing yesterday. This morning while going to the bathroom, shortly thereafter, he felt like he could not catch his breath and got worried and his brought him to the Emergency Department. He denies chest pain. Patient denies he has had no fevers, chills, or night sweats. No hx of recurrent pneumonia. He has no sick contact, TB exposure. Past History Past Medical History: diabetes, hypertension, hyperlipidemia, other (chronic kidney disease) Past Surgical History: No surgical history Social history: denies: smoking, alcohol abuse Family history: diabetes, hypertension Medications and Allergies Allergies Allergy/AdvReac Type Severity Reaction Status Date / Time No Known Allergies Allergy Verified 01/27/17 17:48 Home Medications Medication Instructions Recorded Confirmed Last Taken Type Insulin Glargine [Lantus VIAL] 12 units SUB-Q QHS #1 units 02/18/14 01/28/17 Rx Insulin NPH, Human [NovoLIN N] 6 unit SUB-Q AC #1 units 02/18/14 01/28/17 Rx amLODIPine [Norvasc] 10 mg PO QDAY #30 tablet 02/18/14 01/28/17 05/16/16 08:00 Rx Clopidogrel [Plavix] 75 mg PO QDAY 05/07/16 01/28/17 05/15/16 History Clindamycin [Clindamycin CAP] 300 mg PO QID #20 capsule 12/25/16 01/28/17 Unknown Rx HYDROcodone/APAP 7.5-325 [[place]on 1 each PO BID PRN #10 tablet 12/25/16 01/28/17 Unknown Rx 7.5-325 mg TAB] Losartan [Cozaar] 50 mg PO QDAY #30 tablet 12/25/16 01/28/17 Unknown Rx Metoprolol [Lopressor TAB] 25 mg PO BID #60 tablet 12/25/16 01/28/17 Unknown Rx Active Meds: Active Medications Acetaminophen/Codeine Phosphate (Tylenol #3) 1 tab PO Q4H PRN PRN Reason: Pain, Moderate (4-6) Albuterol (Proventil) 2.5 mg IH Q6HRT PRN PRN Reason: Shortness Of Breath Amlodipine Besylate (Norvasc) 10 mg PO QDAY THEO Clopidogrel Bisulfate (Plavix) 75 mg PO QDAY THEO Furosemide (Lasix) 40 mg IV 0600,1800 THEO Insulin Human NPH (Novolin N) 6 unit SUB-Q AC THEO Losartan Potassium (Cozaar) 50 mg PO QDAY THEO Metoprolol Tartrate (Lopressor) 25 mg PO BID [facility] Miscellaneous Medication (Insulin Glargine) 12 units SUB-Q QHS THEO Ondansetron HCl (Zofran) 4 mg IV Q4H PRN PRN Reason: N/V IF NPO AND NO IV ACCESS Review of Systems Constitutional: no weight loss, no weight gain, no fever Ears, nose, mouth and throat: no decreased hearing, no nose pain, no nasal congestion, no nasal discharge Cardiovascular: shortness of breath, dyspnea on exertion, paroxysmal nocturnal dyspnea, no syncope, no lightheadedness Respiratory: shortness of breath, dyspnea on exertion Gastrointestinal: no diarrhea, no constipation, no hematemesis Genitourinary Male: no discharge, no urinary frequency, no nocturia, no incontinence Rectal: no bleeding Musculoskeletal: no neck stiffness, no shooting arm pain, no low back pain, no shooting leg pain Integumentary: no rash, no pruritis, no sores Neurological: no paralysis, no numbness Psychiatric: no sleep disturbances, no insomnia, no hypersomnia, no change in libido Endocrine: no polyphagia, no polydipsia, no polyuria, no nocturia Hematologic/Lymphatic: no easy bruising, no easy bleeding Allergic/Immunologic: no urticaria, no allergic rhinitis Exam - Constitutional Vitals: Temp Pulse Resp BP Pulse Ox 97.4 F L 100 H 16 168/102 96 01/27/17 17:48 01/28/17 07:27 01/28/17 07:27 01/28/17 07:27 01/28/17 07:27 General appearance: Present: no acute distress - EENT Eyes: Present: PERRL ENT: hearing intact - Neck Neck: Present: supple - Respiratory Respiratory effort: normal Respiratory: bilateral: rales - Cardiovascular Rhythm: regular Heart Sounds: Present: S1 & S2 - Abdominal General gastrointestinal: Present: soft, non-tender Male genitourinary: Present: deferred - Rectal Rectal Exam: deferred - Integumentary Integumentary: Present: clear, warm, dry - Musculoskeletal Musculoskeletal: strength equal bilaterally - Psychiatric Psychiatric: appropriate mood/affect - Neurologic Neurologic: moves all extremities - Allied Health Allied health notes reviewed: nursing Results - Labs CBC & Chem 7: 01/27/17 18:12 01/27/17 18:12 Labs: Laboratory Last Values WBC 5.8 K/mm3 (4.5-11.0) 01/27/17 18:12 RBC 5.13 M/mm3 (3.65-5.03) H 01/27/17 18:12 Hgb 13.0 gm/dl (11.8-15.2) 01/27/17 18:12 Hct 42.4 % (35.5-45.6) 01/27/17 18:12 MCV 83 fl (84-94) L 01/27/17 18:12 MCH 25 pg (28-32) L 01/27/17 18:12 MCHC 31 % (32-34) L 01/27/17 18:12 RDW 17.5 % (13.2-15.2) H 01/27/17 18:12 Plt Count 160 K/mm3 (140-440) 01/27/17 18:12 Lymph % (Auto) 21.7 % (13.4-35.0) 01/27/17 18:12 Bland % (Auto) 9.1 % (0.0-7.3) H 01/27/17 18:12 Eos % (Auto) 0.9 % (0.0-4.3) 01/27/17 18:12 Baso % (Auto) 1.1 % (0.0-1.8) 01/27/17 18:12 Lymph # 1.3 K/mm3 (1.2-5.4) 01/27/17 18:12 Bland # 0.5 K/mm3 (0.0-0.8) 01/27/17 18:12 Eos # 0.1 K/mm3 (0.0-0.4) 01/27/17 18:12 Baso # 0.1 K/mm3 (0.0-0.1) 01/27/17 18:12 Seg Neutrophils % 67.2 % (40.0-70.0) 01/27/17 18:12 Seg Neutrophils # 3.9 K/mm3 (1.8-7.7) 01/27/17 18:12 PT 13.9 Sec. (12.2-14.9) 01/27/17 18:12 INR 1.02 (0.87-1.13) 01/27/17 18:12 APTT 30.3 Sec. (24.2-36.6) 01/27/17 18:12 D-Dimer 390.66 ng/mlDDU (0-234) H 01/27/17 18:12 Sodium 144 mmol/L (137-145) 01/27/17 18:12 Potassium 4.6 mmol/L (3.6-5.0) 01/27/17 18:12 Chloride 103.3 mmol/L (98-107) 01/27/17 18:12 Carbon Dioxide 26 mmol/L (22-30) 01/27/17 18:12 Anion Gap 19 mmol/L 01/27/17 18:12 BUN 29 mg/dL (9-20) H 01/27/17 18:12 Creatinine 3.1 mg/dL (0.8-1.5) H 01/27/17 18:12 Estimated GFR 25 ml/min 01/27/17 18:12 BUN/Creatinine Ratio 9 % 01/27/17 18:12 Glucose 155 mg/dL (75-100) H 01/27/17 18:12 Calcium 8.0 mg/dL (8.4-10.2) L 01/27/17 18:12 Troponin T 0.063 ng/mL (0.00-0.029) H 01/27/17 23:50 NT-Pro-B Natriuret Pep 41452 pg/mL (0-900) H 01/27/17 18:12 Triglycerides 97 mg/dL (2-149) 01/27/17 18:12 Cholesterol 146 mg/dL (50-199) 01/27/17 18:12 LDL Cholesterol Direct 80 mg/dL (50-130) 01/27/17 18:12 HDL Cholesterol 47 mg/dL (40-59) 01/27/17 18:12 Cholesterol/HDL Ratio 3.10 % 01/27/17 18:12 Assessment and Plan Assessment and plan: Patient is a 61 years old male with past history past medical history of hypertension, systolic congestive heart failure, hyperlipidemia, chronic kidney failure stage III and diabetes mellitus. He has had progressive worsening of shortness of breath since November. Patient developed difficulty of breathing yesterday. Acute respiratory failure with hypoxia Etiology due to chf Patient oxygen saturation improved with 2LNC; currently SPO2 98%. No acute respiratory distress noted. Aggressive Nebulizers/Inhalers ABG when necessary Oxygen supplement Pulmonary Consulted Supportive care Acute on chronic Systolic Congestive heart failure Recent Echocardiogram ejection fraction 40-45% Recent normal Stress test Started on IV Diuresis, beta blockers and ACEI/ARB Strict I&O's and daily weights Low-sodium/cardiac diet/fluid restriction Closely monitor electrolytes Cardiology evaluation Acute on chronic kidney failure stage III, worsening function Avoid nephrotoxic medications Nephrology consulted Diabetes mellitus Accu-Chek before meals and at bedtime Sliding scale insulin/NovoLog ADA carbohydrate consistent diet Hypertensive urgency Continue home antihypertensive medications Closely monitor blood pressure Chronic anemia H&H stable for patient at this point; no blood transfusions needed Closely monitor H&H Elevated d-dimer We will obtain VQ scan Bilateral LE doppler DVT prophylaxis Heparin Advance Directives: Yes VTE prophylaxis?: Chemical Contraindication Mechanical VTE Prophylaxis: Treatment Not Indicated Plan of care discussed with patient/family: Yes <FACUNDO MARTELL - Last Filed: 01/29/17 08:44> History of Present Illness Date of admission: 01/28/17 04:52 Medications and Allergies Active Meds: Active Medications Acetaminophen/Codeine Phosphate (Tylenol #3) 1 tab PO Q4H PRN PRN Reason: Pain, Moderate (4-6) Albuterol (Proventil) 2.5 mg IH Q6HRT PRN PRN Reason: Shortness Of Breath Amlodipine Besylate (Norvasc) 10 mg PO QDAY [facility] Last Admin: 01/28/17 11:26 Dose: 10 mg Clopidogrel Bisulfate (Plavix) 75 mg PO QDAY [facility] Last Admin: 01/28/17 11:27 Dose: 75 mg Dextrose (D50w (25gm) Syringe) 50 ml IV PRN PRN PRN Reason: Hypoglycemia Furosemide (Lasix) 40 mg IV 0600,1800 [facility] Last Admin: 01/29/17 05:16 Dose: 40 mg Heparin Sodium (Porcine) (Heparin) 5,000 unit SUB-Q Q12HR [facility] Last Admin: 01/28/17 22:09 Dose: 5,000 unit Insulin Aspart (Novolog) 0 units SUB-Q AC [facility] PRN Reason: Protocol Last Admin: 01/28/17 17:14 Dose: Not Given Insulin Aspart (Novolog) 0 units SUB-Q QHS THEO PRN Reason: Protocol Last Admin: 01/28/17 22:11 Dose: Not Given Insulin Aspart (Novolog) 6 units SUB-Q AC [facility] Insulin Detemir (Levemir) 12 units SUB-Q QHS [facility] Last Admin: 01/28/17 22:11 Dose: Not Given Losartan Potassium (Cozaar) 50 mg PO QDAY [facility] Last Admin: 01/28/17 11:25 Dose: 50 mg Metoprolol Tartrate (Lopressor) 25 mg PO BID [facility] Last Admin: 01/28/17 22:10 Dose: 25 mg Ondansetron HCl (Zofran) 4 mg IV Q4H PRN PRN Reason: N/V IF NPO AND NO IV ACCESS Oxycodone/Acetaminophen (Percocet 5/325) 1 tab PO Q4H PRN PRN Reason: Pain, Moderate (4-6) Exam - Constitutional Vitals: Temp Pulse Resp BP Pulse Ox 98.2 F 91 H 18 162/100 100 01/29/17 04:49 01/29/17 04:49 01/29/17 04:49 01/29/17 04:49 01/29/17 04:49 Results - Labs CBC & Chem 7: 01/27/17 18:12 01/27/17 18:12 Labs: Laboratory Last Values WBC 5.8 K/mm3 (4.5-11.0) 01/27/17 18:12 RBC 5.13 M/mm3 (3.65-5.03) H 01/27/17 18:12 Hgb 13.0 gm/dl (11.8-15.2) 01/27/17 18:12 Hct 42.4 % (35.5-45.6) 01/27/17 18:12 MCV 83 fl (84-94) L 01/27/17 18:12 MCH 25 pg (28-32) L 01/27/17 18:12 MCHC 31 % (32-34) L 01/27/17 18:12 RDW 17.5 % (13.2-15.2) H 01/27/17 18:12 Plt Count 160 K/mm3 (140-440) 01/27/17 18:12 Lymph % (Auto) 21.7 % (13.4-35.0) 01/27/17 18:12 Bland % (Auto) 9.1 % (0.0-7.3) H 01/27/17 18:12 Eos % (Auto) 0.9 % (0.0-4.3) 01/27/17 18:12 Baso % (Auto) 1.1 % (0.0-1.8) 01/27/17 18:12 Lymph # 1.3 K/mm3 (1.2-5.4) 01/27/17 18:12 Bland # 0.5 K/mm3 (0.0-0.8) 01/27/17 18:12 Eos # 0.1 K/mm3 (0.0-0.4) 01/27/17 18:12 Baso # 0.1 K/mm3 (0.0-0.1) 01/27/17 18:12 Seg Neutrophils % 67.2 % (40.0-70.0) 01/27/17 18:12 Seg Neutrophils # 3.9 K/mm3 (1.8-7.7) 01/27/17 18:12 PT 13.9 Sec. (12.2-14.9) 01/27/17 18:12 INR 1.02 (0.87-1.13) 01/27/17 18:12 APTT 30.3 Sec. (24.2-36.6) 01/27/17 18:12 D-Dimer 390.66 ng/mlDDU (0-234) H 01/27/17 18:12 Sodium 144 mmol/L (137-145) 01/27/17 18:12 Potassium 4.6 mmol/L (3.6-5.0) 01/27/17 18:12 Chloride 103.3 mmol/L (98-107) 01/27/17 18:12 Carbon Dioxide 26 mmol/L (22-30) 01/27/17 18:12 Anion Gap 19 mmol/L 01/27/17 18:12 BUN 29 mg/dL (9-20) H 01/27/17 18:12 Creatinine 3.1 mg/dL (0.8-1.5) H 01/27/17 18:12 Estimated GFR 25 ml/min 01/27/17 18:12 BUN/Creatinine Ratio 9 % 01/27/17 18:12 Glucose 155 mg/dL (75-100) H 01/27/17 18:12 POC Glucose 161 (70-105) H 01/28/17 19:52 Calcium 8.0 mg/dL (8.4-10.2) L 01/27/17 18:12 Troponin T 0.063 ng/mL (0.00-0.029) H 01/27/17 23:50 NT-Pro-B Natriuret Pep 00961 pg/mL (0-900) H 01/27/17 18:12 Triglycerides 97 mg/dL (2-149) 01/27/17 18:12 Cholesterol 146 mg/dL (50-199) 01/27/17 18:12 LDL Cholesterol Direct 80 mg/dL (50-130) 01/27/17 18:12 HDL Cholesterol 47 mg/dL (40-59) 01/27/17 18:12 Cholesterol/HDL Ratio 3.10 % 01/27/17 18:12 Assessment and Plan Assessment and plan: I saw and evaluated the patient. I agree with the findings and the plan of care as documented in the Nurse Practitioner's progress note. Advance Directives: Yes VTE prophylaxis?: Chemical Plan of care discussed with patient/family: Yes
[2017-01-28] MEDS ORDERED: D50W (25GM) Syringe IV PRN (08:44)
[2017-01-28] MEDS: COZAAR PO SCH (11:25)
[2017-01-28] MEDS: LOPRESSOR PO SCH ×2 (11:26→22:10)
[2017-01-28] MEDS: NORVASC PO SCH (11:26)
[2017-01-28] MEDS: PLAVIX PO SCH (11:27)
[2017-01-28] MEDS: LASIX IV SCH ×2 (11:27→18:00)
[2017-01-28] MEDS: NOVOLOG SUB-Q SCH ×3 (11:29→22:11)
--- NOTE | 2017-01-28 21:59 | Event Note ---
Date: 01/28/[address] MARTELL thank you for asking us to participate in the care of this patient. Full consultation follow. This is 61 year old male history of systolic heart failure, Hypertension Hyperlipidemia, CKD and diabetes mellitus admitted with worsening shortness of breath since last November.Increased Shortness of breath even with slight exertion.Patient denies chest pain, fever or chills or diaphoresis.Denies smoking,alcohol or drug abuse. No Known drug allergies. Worked in [employer] before he retired. Impression: 1. Acute exacerbation of CHF 2. Shortness of breath. 3. Hypertension 4. Diabetes. 5. Hyperlipidemia. 6. CKD 7. Elevated D dimer. PLAN: 1. O2 3 litres via nasal canula. 2. ABGs on room air. 3. Venous doppler studies of legs. 4. Ventilation/perfusion lung scan. 5. Albuterol inhalor 2 puffs po q6 hours prn for shortness of breath. 6. Continue S/C Heparin.
[2017-01-28] MEDS ORDERED: INSULIN GLARGINE 12 UNIT SUB-Q SCH (22:00)
[2017-01-28] MEDS: HEPARIN SUB-Q SCH (22:09)
[2017-01-28] MEDS: LEVEMIR SUB-Q SCH (22:11)
[2017-01-29] MEDS: LASIX IV SCH ×2 (05:16→19:04)
[2017-01-29] MEDS: NOVOLOG SUB-Q SCH ×7 (07:30→21:36)
--- NOTE | 2017-01-29 07:59 | Vascular Lab Report ---
LOWER EXTREMITY VENOUS DUPLEX: REASON FOR EXAM: Elevated d-dimer. COMMENTS ON THE RIGHT: All veins visualized are freely compressible without evidence of internal echogenicity. Flow is spontaneous and phasic throughout. COMMENTS ON THE LEFT: All veins visualized are freely compressible without evidence of internal echogenicity. Flow is spontaneous and phasic throughout. IMPRESSION: No evidence of acute or chronic deep venous thrombosis in either lower extremity.
--- NOTE | 2017-01-29 09:34 | Progress Note ---
<SIVAN ADAMS - Last Filed: 01/29/17 15:49> Assessment and Plan Assessment and plan: Patient is a 61 years old male with past history past medical history of hypertension, systolic congestive heart failure, hyperlipidemia, chronic kidney failure stage III and diabetes mellitus. He has had progressive worsening of shortness of breath since November. Patient developed difficulty of breathing yesterday. Acute respiratory failure with hypoxia Etiology due to chf Patient oxygen saturation improved with 2LNC; currently SPO2 98%. No acute respiratory distress noted. Aggressive Nebulizers/Inhalers ABG when necessary Oxygen supplement Pulmonary Consulted Supportive care Acute on chronic Systolic Congestive heart failure Recent Echocardiogram ejection fraction 40-45% Recent normal Stress test Continues on IV Diuresis, beta blockers and ACEI/ARB Strict I&O's and daily weights Low-sodium/cardiac diet/fluid restriction Closely monitor electrolytes Cardiology evaluation Acute on chronic kidney failure stage III, worsening function Avoid nephrotoxic medications Nephrology consulted Diabetes mellitus Accu-Chek before meals and at bedtime Sliding scale insulin/NovoLog ADA carbohydrate consistent diet Hypertensive urgency Continue home antihypertensive medications Closely monitor blood pressure Chronic anemia H&H stable for patient at this point; no blood transfusions needed Closely monitor H&H Elevated d-dimer VQ scan no evidence of PE nigative Bilateral LE doppler DVT prophylaxis Heparin History Interval history: Patient complains shortness of breath but feeling better than yesterday. labs and nursing notes reviewed. Hospitalist Physical - Constitutional Vitals: Temp Pulse Resp BP Pulse Ox 98.2 F 91 H 18 162/100 100 01/29/17 04:49 01/29/17 04:49 01/29/17 04:49 01/29/17 04:49 01/29/17 04:49 General appearance: Present: no acute distress - EENT Eyes: Present: PERRL ENT: hearing intact - Neck Neck: Present: supple - Respiratory Respiratory effort: normal Respiratory: bilateral: wheezing - Cardiovascular Rhythm: regular Heart Sounds: Present: S1 & S2 - Abdominal General gastrointestinal: soft, non-tender - Integumentary Integumentary: Present: clear, warm, dry - Psychiatric Psychiatric: appropriate mood/affect - Neurologic Neurologic: moves all extremities - Allied Health Allied health notes reviewed: nursing Results - Labs CBC & Chem 7: 01/27/17 18:12 01/27/17 18:12 Labs: Laboratory Last Values WBC 5.8 K/mm3 (4.5-11.0) 01/27/17 18:12 RBC 5.13 M/mm3 (3.65-5.03) H 01/27/17 18:12 Hgb 13.0 gm/dl (11.8-15.2) 01/27/17 18:12 Hct 42.4 % (35.5-45.6) 01/27/17 18:12 MCV 83 fl (84-94) L 01/27/17 18:12 MCH 25 pg (28-32) L 01/27/17 18:12 MCHC 31 % (32-34) L 01/27/17 18:12 RDW 17.5 % (13.2-15.2) H 01/27/17 18:12 Plt Count 160 K/mm3 (140-440) 01/27/17 18:12 Lymph % (Auto) 21.7 % (13.4-35.0) 01/27/17 18:12 Mcdonough % (Auto) 9.1 % (0.0-7.3) H 01/27/17 18:12 Eos % (Auto) 0.9 % (0.0-4.3) 01/27/17 18:12 Baso % (Auto) 1.1 % (0.0-1.8) 01/27/17 18:12 Lymph # 1.3 K/mm3 (1.2-5.4) 01/27/17 18:12 Mcdonough # 0.5 K/mm3 (0.0-0.8) 01/27/17 18:12 Eos # 0.1 K/mm3 (0.0-0.4) 01/27/17 18:12 Baso # 0.1 K/mm3 (0.0-0.1) 01/27/17 18:12 Seg Neutrophils % 67.2 % (40.0-70.0) 01/27/17 18:12 Seg Neutrophils # 3.9 K/mm3 (1.8-7.7) 01/27/17 18:12 PT 13.9 Sec. (12.2-14.9) 01/27/17 18:12 INR 1.02 (0.87-1.13) 01/27/17 18:12 APTT 30.3 Sec. (24.2-36.6) 01/27/17 18:12 D-Dimer 390.66 ng/mlDDU (0-234) H 01/27/17 18:12 Sodium 144 mmol/L (137-145) 01/27/17 18:12 Potassium 4.6 mmol/L (3.6-5.0) 01/27/17 18:12 Chloride 103.3 mmol/L (98-107) 01/27/17 18:12 Carbon Dioxide 26 mmol/L (22-30) 01/27/17 18:12 Anion Gap 19 mmol/L 01/27/17 18:12 BUN 29 mg/dL (9-20) H 01/27/17 18:12 Creatinine 3.1 mg/dL (0.8-1.5) H 01/27/17 18:12 Estimated GFR 25 ml/min 01/27/17 18:12 BUN/Creatinine Ratio 9 % 01/27/17 18:12 Glucose 155 mg/dL (75-100) H 01/27/17 18:12 POC Glucose 161 (70-105) H 01/28/17 19:52 Calcium 8.0 mg/dL (8.4-10.2) L 01/27/17 18:12 Troponin T 0.063 ng/mL (0.00-0.029) H 01/27/17 23:50 NT-Pro-B Natriuret Pep 87905 pg/mL (0-900) H 01/27/17 18:12 Triglycerides 97 mg/dL (2-149) 01/27/17 18:12 Cholesterol 146 mg/dL (50-199) 01/27/17 18:12 LDL Cholesterol Direct 80 mg/dL (50-130) 01/27/17 18:12 HDL Cholesterol 47 mg/dL (40-59) 01/27/17 18:12 Cholesterol/HDL Ratio 3.10 % 01/27/17 18:12 <FACUNDO MARTELL M - Last Filed: 01/29/17 16:48> Assessment and Plan Assessment and plan: I saw and evaluated the patient. I agree with the findings and the plan of care as documented in the Nurse Practitioner's progress note, with the following corrections and additions. Patient may benefit from right and left heart cath. Hospitalist Physical - Constitutional Vitals: Temp Pulse Resp BP Pulse Ox 98.6 F 90 18 150/92 98 01/29/17 12:46 01/29/17 12:46 01/29/17 12:46 01/29/17 12:46 01/29/17 12:46 Results - Labs CBC & Chem 7: 01/27/17 18:12 01/27/17 18:12 Labs: Laboratory Last Values WBC 5.8 K/mm3 (4.5-11.0) 01/27/17 18:12 RBC 5.13 M/mm3 (3.65-5.03) H 01/27/17 18:12 Hgb 13.0 gm/dl (11.8-15.2) 01/27/17 18:12 Hct 42.4 % (35.5-45.6) 01/27/17 18:12 MCV 83 fl (84-94) L 01/27/17 18:12 MCH 25 pg (28-32) L 01/27/17 18:12 MCHC 31 % (32-34) L 01/27/17 18:12 RDW 17.5 % (13.2-15.2) H 01/27/17 18:12 Plt Count 160 K/mm3 (140-440) 01/27/17 18:12 Lymph % (Auto) 21.7 % (13.4-35.0) 01/27/17 18:12 Mcdonough % (Auto) 9.1 % (0.0-7.3) H 01/27/17 18:12 Eos % (Auto) 0.9 % (0.0-4.3) 01/27/17 18:12 Baso % (Auto) 1.1 % (0.0-1.8) 01/27/17 18:12 Lymph # 1.3 K/mm3 (1.2-5.4) 01/27/17 18:12 Mcdonough # 0.5 K/mm3 (0.0-0.8) 01/27/17 18:12 Eos # 0.1 K/mm3 (0.0-0.4) 01/27/17 18:12 Baso # 0.1 K/mm3 (0.0-0.1) 01/27/17 18:12 Seg Neutrophils % 67.2 % (40.0-70.0) 01/27/17 18:12 Seg Neutrophils # 3.9 K/mm3 (1.8-7.7) 01/27/17 18:12 PT 13.9 Sec. (12.2-14.9) 01/27/17 18:12 INR 1.02 (0.87-1.13) 01/27/17 18:12 APTT 30.3 Sec. (24.2-36.6) 01/27/17 18:12 D-Dimer 390.66 ng/mlDDU (0-234) H 01/27/17 18:12 POC ABG pH 7.392 (7.35-7.45) 01/29/17 10:51 POC ABG pCO2 43.9 (35-45) 01/29/17 10:51 POC ABG pO2 76 (80-105) L 01/29/17 10:51 POC ABG HCO3 26.7 01/29/17 10:51 POC ABG Total CO2 28 01/29/17 10:51 POC ABG O2 Sat 95 01/29/17 10:51 POC ABG Base Excess 2 01/29/17 10:51 FiO2 21 % 01/29/17 10:51 Sodium 144 mmol/L (137-145) 01/27/17 18:12 Potassium 4.6 mmol/L (3.6-5.0) 01/27/17 18:12 Chloride 103.3 mmol/L (98-107) 01/27/17 18:12 Carbon Dioxide 26 mmol/L (22-30) 01/27/17 18:12 Anion Gap 19 mmol/L 01/27/17 18:12 BUN 29 mg/dL (9-20) H 01/27/17 18:12 Creatinine 3.1 mg/dL (0.8-1.5) H 01/27/17 18:12 Estimated GFR 25 ml/min 01/27/17 18:12 BUN/Creatinine Ratio 9 % 01/27/17 18:12 Glucose 155 mg/dL (75-100) H 01/27/17 18:12 POC Glucose 161 (70-105) H 01/28/17 19:52 Calcium 8.0 mg/dL (8.4-10.2) L 01/27/17 18:12 Troponin T 0.063 ng/mL (0.00-0.029) H 01/27/17 23:50 NT-Pro-B Natriuret Pep 26656 pg/mL (0-900) H 01/27/17 18:12 Triglycerides 97 mg/dL (2-149) 01/27/17 18:12 Cholesterol 146 mg/dL (50-199) 01/27/17 18:12 LDL Cholesterol Direct 80 mg/dL (50-130) 01/27/17 18:12 HDL Cholesterol 47 mg/dL (40-59) 01/27/17 18:12 Cholesterol/HDL Ratio 3.10 % 01/27/17 18:12
[2017-01-29 10:55] LABS: ISTAT Base Excess 2; ISTAT DEVICE 0; ISTAT HCO3 26.7; ISTAT PCO2 43.9 (35-45); ISTAT PH 7.392 (7.35-7.45); ISTAT PO2 76 (80-105); ISTAT SO2 95; ISTAT TCO2 28
[2017-01-29] MEDS: COZAAR PO SCH (10:59)
[2017-01-29] MEDS: LOPRESSOR PO SCH ×2 (11:00→21:35)
[2017-01-29] MEDS: NORVASC PO SCH (11:01)
[2017-01-29] MEDS: PLAVIX PO SCH (11:02)
[2017-01-29] MEDS: HEPARIN SUB-Q SCH ×2 (11:02→21:35)
--- NOTE | 2017-01-29 11:14 | Progress Note ---
Assessment and Plan Acute Hypoxemic Respiratory Failure Right Pleural Effusion Acute exacerbation of CHF SANAM on CKD Hypertension Diabetes. Hyperlipidemia. Elevated D dimer. - continue to wean oxygen for sats > 94% - get US thoracentesis and send for studies - continue diuresis but follow I's & O's as well as BUN/Cr - RA ABG reviewed - VTE w/up negative (Dopplers and VQ scan) - continue albuterol prn - continue VTE prophylaxis Subjective Date of service: 01/29/17 Principal diagnosis: Acute Hypoxemic Resp Failure; Acute CHF exacerbation; R pleural effusion Interval history: Patient is seen today for: Acute Hypoxemic Resp Failure; Acute CHF exacerbation ; R pleural effusion Seen and examined at bedside; 24hour events reviewed; nursing and respiratory care staff consulted; no adverse overnight events reported to me; resting in bed ; feels better; on 2L NC; denies any cough or hemoptysis; no acute chest pains; No N/V/F/C Objective Vital Signs - 12hr 01/29/17 01/29/17 01/29/17 00:14 04:00 04:49 Temperature 98.3 F 98.2 F Pulse Rate 94 H 61 91 H Respiratory 18 18 Rate Blood Pressure 167/106 162/100 O2 Sat by Pulse 100 100 Oximetry 01/29/17 01/29/17 01/29/17 10:59 11:00 11:01 Temperature Pulse Rate 89 89 89 Respiratory Rate Blood Pressure 156/96 156/96 156/96 O2 Sat by Pulse Oximetry Constitutional: alert, appears uncomfortable Eyes: non-icteric ENT: oropharynx moist, other (no thyromegaly) Neck: supple, no lymphadenopathy, no JVD Effort: mildly labored Ascultation: Bilateral: clear, diminished breath sounds Percussion: Right: dull (base) Cardiovascular: regular rate and rhythm, other (no rubs/murmurs) Gastrointestinal: normoactive bowel sounds, soft, non-tender, non-distended, other (No HSM) Integumentary: normal Extremities: no cyanosis, pulses normal, no ischemia or petechiae, edema Neurologic: normal mental status, non-focal exam, pupils equal and round, motor strength normal and, other (moves all 4 extremities) Psychiatric: mood appropriate, affect normal CBC and BMP: 01/27/17 18:12 01/27/17 18:12 ABG, PT/INR, D-dimer: ABG POC ABG pH 7.392 (7.35-7.45) 01/29/17 10:51 POC ABG pCO2 43.9 (35-45) 01/29/17 10:51 POC ABG pO2 76 (80-105) L 01/29/17 10:51 POC ABG HCO3 26.7 01/29/17 10:51 POC ABG Total CO2 28 01/29/17 10:51 POC ABG O2 Sat 95 01/29/17 10:51 PT/INR, D-dimer PT 13.9 Sec. (12.2-14.9) 01/27/17 18:12 INR 1.02 (0.87-1.13) 01/27/17 18:12 D-Dimer 390.66 ng/mlDDU (0-234) H 01/27/17 18:12 Abnormal lab findings: Abnormal Labs 01/27/17 01/27/17 01/27/17 18:12 18:12 18:12 RBC 5.13 H MCV 83 L MCH 25 L MCHC 31 L RDW 17.5 H Pinal % (Auto) 9.1 H D-Dimer 390.66 H POC ABG pO2 BUN 29 H Creatinine 3.1 H Glucose 155 H POC Glucose Calcium 8.0 L Troponin T 0.076 H NT-Pro-B Natriuret Pep 36237 H 01/27/17 01/28/17 01/28/17 23:50 11:05 16:53 RBC MCV MCH MCHC RDW P[place] % (Auto) D-Dimer POC ABG pO2 BUN Creatinine Glucose POC Glucose 304 H 57 L Calcium Troponin T 0.063 H NT-Pro-B Natriuret Pep 01/28/17 01/29/17 19:52 10:51 RBC MCV MCH MCHC RDW P[place] % (Auto) D-Dimer POC ABG pO2 76 L BUN Creatinine Glucose POC Glucose 161 H Calcium Troponin T NT-Pro-B Natriuret Pep Chest x-ray: image reviewed (right small pleural effusion progressed from november CXR; bibasilar infiltrates also)
--- NOTE | 2017-01-29 11:46 | Consultation ---
History of Present Illness Consult date: 01/29/17 Consult reason: congestive heart failure History of present illness: This is a 61yr old male with a history of chronic renal disease, peripheral vascular disease on plavix therapy, hypertension and diabetes who presented with worsening shortness of breath. Cardiology consultation was requested for CHF. Patient reports shortness of breath ongoing for several weeks. He denies chest pain. Chest xray on initial workup reports CHF. A month ago the patient was admitted to this hospital for shortness of breath. At that time he had a persantine thallium stress test that reports a normal perfusion scan. An echocardiogram demonstrated a mildly decreased left ventricular ejection fraction 40-45%. Past History Past Medical History: diabetes, hypertension, hyperlipidemia, other (chronic kidney disease) Past Surgical History: No surgical history Social history: denies: smoking, alcohol abuse Family history: diabetes, hypertension Medications and Allergies Allergies Allergy/AdvReac Type Severity Reaction Status Date / Time No Known Allergies Allergy Verified 01/27/17 17:48 Home Medications Medication Instructions Recorded Confirmed Last Taken Type Insulin Glargine [Lantus VIAL] 12 units SUB-Q QHS #1 units 02/18/14 01/28/17 Rx Insulin NPH, Human [NovoLIN N] 6 unit SUB-Q AC #1 units 02/18/14 01/28/17 Rx amLODIPine [Norvasc] 10 mg PO QDAY #30 tablet 02/18/14 01/28/17 05/16/16 08:00 Rx Clopidogrel [Plavix] 75 mg PO QDAY 05/07/16 01/28/17 05/15/16 History Clindamycin [Clindamycin CAP] 300 mg PO QID #20 capsule 12/25/16 01/28/17 Unknown Rx HYDROcodone/APAP 7.5-325 [[place] 1 each PO BID PRN #10 tablet 12/25/16 01/28/17 Unknown Rx 7.5-325 mg TAB] Losartan [Cozaar] 50 mg PO QDAY #30 tablet 12/25/16 01/28/17 Unknown Rx Metoprolol [Lopressor TAB] 25 mg PO BID #60 tablet 12/25/16 01/28/17 Unknown Rx Active Meds: Active Medications Acetaminophen/Codeine Phosphate (Tylenol #3) 1 tab PO Q4H PRN PRN Reason: Pain, Moderate (4-6) Albuterol (Proventil) 2.5 mg IH Q6HRT PRN PRN Reason: Shortness Of Breath Amlodipine Besylate (Norvasc) 10 mg PO QDAY [facility] Last Admin: 01/29/17 11:01 Dose: 10 mg Clopidogrel Bisulfate (Plavix) 75 mg PO QDAY [facility] Last Admin: 01/29/17 11:02 Dose: 75 mg Dextrose (D50w (25gm) Syringe) 50 ml IV PRN PRN PRN Reason: Hypoglycemia Furosemide (Lasix) 40 mg IV 0600,1800 [facility] Last Admin: 01/29/17 05:16 Dose: 40 mg Heparin Sodium (Porcine) (Heparin) 5,000 unit SUB-Q Q12HR [facility] Last Admin: 01/29/17 11:02 Dose: 5,000 unit Insulin Aspart (Novolog) 0 units SUB-Q AC [facility] PRN Reason: Protocol Last Admin: 01/29/17 07:30 Dose: Not Given Insulin Aspart (Novolog) 0 units SUB-Q QHS [facility] PRN Reason: Protocol Last Admin: 01/28/17 22:11 Dose: Not Given Insulin Aspart (Novolog) 6 units SUB-Q [facility] Last Admin: 01/29/17 10:58 Dose: Not Given Insulin Detemir (Levemir) 12 units SUB-Q QHS [facility] Last Admin: 01/28/17 22:11 Dose: Not Given Losartan Potassium (Cozaar) 50 mg PO QDAY [facility] Last Admin: 01/29/17 10:59 Dose: 50 mg Metoprolol Tartrate (Lopressor) 25 mg PO BID [facility] Last Admin: 01/29/17 11:00 Dose: 25 mg Ondansetron HCl (Zofran) 4 mg IV Q4H PRN PRN Reason: N/V IF NPO AND NO IV ACCESS Oxycodone/Acetaminophen (Percocet 5/325) 1 tab PO Q4H PRN PRN Reason: Pain, Moderate (4-6) Physical Examination Vital Signs Temp Pulse BP Pulse Ox 97.4 F L 89 176/105 98 01/27/17 17:48 01/27/17 17:48 01/27/17 17:48 01/27/17 17:48 General appearance: no acute distress HEENT: Positive: PERRL Cardiac: Positive: Reg Rate and Rhythm Lungs: Positive: Decreased Breath Sounds Neuro: Positive: Grossly Intact Extremities: Present: +1 Edema Results 01/27/17 18:12 01/27/17 18:12 Assessment and Plan Acute systolic heart failure low probability for PE on V/Q scan EF 40-45% on echo 11/2016 normal perfusion MPI 11/2016 Chronic renal disease follows with Dr Reeves as an outpatient Hypertension Diabetes PVD on plavix therapy
--- NOTE | 2017-01-29 16:02 | Consultation ---
History of Present Illness - Reason for Consult Consult date: 01/29/17 chronic renal failure Requesting physician: FACUNDO MARTELL - History of Present Illness 61-year-old male with past medical history of hypertension, diabetes and chronic renal Insufficiency. Presents to ER with complaints of shortness of breath 2 months. Shortness of breath is worse upon exertion and when he lays supine. He denies chest pain, denies coughing, nausea, vomiting, diarrhea. Patient has also noticed swelling of both legs. He follows up with Dr. Reeves in the office. Review of records indicates that his serum creatinine was in the low threes at last visit and appears to be at baseline. Currently is approximately 3.1 and therefore this consultation. Patient denies any difficulty urination. No gross hematuria or frequent urinary tract infection. Denies any recent nonsteroidal intake Past History Past Medical History: diabetes, hypertension, hyperlipidemia Social history: no significant social history Family history: no significant family history Past History Past Medical History: diabetes, hypertension, hyperlipidemia, other (chronic kidney disease) Past Surgical History: No surgical history Social history: denies: smoking, alcohol abuse Family history: diabetes, hypertension Medications and Allergies Allergies Allergy/AdvReac Type Severity Reaction Status Date / Time No Known Allergies Allergy Verified 01/27/17 17:48 Home Medications Medication Instructions Recorded Confirmed Last Taken Type Insulin Glargine [Lantus VIAL] 12 units SUB-Q QHS #1 units 02/18/14 01/28/17 Rx Insulin NPH, Human [NovoLIN N] 6 unit SUB-Q AC #1 units 02/18/14 01/28/17 Rx amLODIPine [Norvasc] 10 mg PO QDAY #30 tablet 02/18/14 01/28/17 05/16/16 08:00 Rx Clopidogrel [Plavix] 75 mg PO QDAY 05/07/16 01/28/17 05/15/16 History Clindamycin [Clindamycin CAP] 300 mg PO QID #20 capsule 12/25/16 01/28/17 Unknown Rx HYDROcodone/APAP 7.5-325 [[place] 1 each PO BID PRN #10 tablet 12/25/16 01/28/17 Unknown Rx 7.5-325 mg TAB] Losartan [Cozaar] 50 mg PO QDAY #30 tablet 12/25/16 01/28/17 Unknown Rx Metoprolol [Lopressor TAB] 25 mg PO BID #60 tablet 12/25/16 01/28/17 Unknown Rx Active Meds: Active Medications Acetaminophen/Codeine Phosphate (Tylenol #3) 1 tab PO Q4H PRN PRN Reason: Pain, Moderate (4-6) Albuterol (Proventil) 2.5 mg IH Q6HRT PRN PRN Reason: Shortness Of Breath Amlodipine Besylate (Norvasc) 10 mg PO QDAY [facility] Last Admin: 01/29/17 11:01 Dose: 10 mg Clopidogrel Bisulfate (Plavix) 75 mg PO QDAY [facility] Last Admin: 01/29/17 11:02 Dose: 75 mg Dextrose (D50w (25gm) Syringe) 50 ml IV PRN PRN PRN Reason: Hypoglycemia Furosemide (Lasix) 40 mg IV 0600,1800 [facility] Last Admin: 01/29/17 05:16 Dose: 40 mg Heparin Sodium (Porcine) (Heparin) 5,000 unit SUB-Q Q12HR [facility] Last Admin: 01/29/17 11:02 Dose: 5,000 unit Insulin Aspart (Novolog) 0 units SUB-Q [facility] PRN Reason: Protocol Last Admin: 01/29/17 13:08 Dose: 4 units Insulin Aspart (Novolog) 0 units SUB-Q QHS [facility] PRN Reason: Protocol Last Admin: 01/28/17 22:11 Dose: Not Given Insulin Aspart (Novolog) 6 units SUB-Q [facility] Last Admin: 01/29/17 11:30 Dose: Not Given Insulin Detemir (Levemir) [facility] Last Admin: 01/28/17 22:11 Dose: Not Given Losartan Potassium (Cozaar) 50 mg PO QDAY [facility] Last Admin: 01/29/17 10:59 Dose: 50 mg Metoprolol Tartrate (Lopressor) 25 mg PO BID [facility] Last Admin: 01/29/17 11:00 Dose: 25 mg Ondansetron HCl (Zofran) 4 mg IV Q4H PRN PRN Reason: N/V IF NPO AND NO IV ACCESS Oxycodone/Acetaminophen (Percocet 5/325) 1 tab PO Q4H PRN PRN Reason: Pain, Moderate (4-6) Review of Systems Constitutional: fatigue, weakness, malaise Cardiovascular: orthopnea, edema, shortness of breath, dyspnea on exertion, paroxysmal nocturnal dyspnea, high blood pressure Respiratory: shortness of breath, dyspnea on exertion Exam - Vital Signs Vital signs: Vital Signs Temp Pulse BP Pulse Ox 97.4 F L 89 176/105 98 01/27/17 17:48 01/27/17 17:48 01/27/17 17:48 01/27/17 17:48 - Physical Exam Narrative exam: General appearance: well-developed, well-nourished, appears stated age EENT: ATNC, PERRL, mucous membranes moist Neck: Present: neck supple, trachea midline. Absent: JVD/HJR, Masses Respiratory: Clear to Ascultation Heart: regular, normal heart rate, S1S2, no murmurs Gastrointestinal: Present: normal, normoactive bowel sounds Integumentary: no rash, other (1+ edema) Results - Lab Results 01/27/17 18:12 01/27/17 18:12 Most recent lab results Calcium 8.0 mg/dL (8.4-10.2) L 01/27/17 18:12 Assessment and Plan Impression * Chronic kidney disease stage 3/4 * Edema * Diabetes * Hypertension * Proteinuria * cardiomyopathy--EF 40% Recommendations * Patient most likely has underlying diabetic nephropathy. His urine shows 4+ dipstick protein. * cr is at baseline currently, no emergent need for [employer]ATIONS [employer]IST at this time * May need to consider adding an CHAPIN inhibitor or ARB if his renal function remained stable * His urine also does show some microhematuria. * Avoid nephrotoxins * iv diuresis for volume control * Further workup as per cardiology services * Thank you very much for the consultation. Shall follow along with you
[2017-01-29] MEDS: LEVEMIR SUB-Q SCH (21:36)
[2017-01-30] MEDS: LASIX IV SCH ×2 (05:40→17:18)
--- NOTE | 2017-01-30 09:30 | Progress Note ---
Assessment and Plan Acute systolic heart failure low probability for PE on V/Q scan EF 40-45% on echo 11/2016 normal perfusion MPI 11/2016 Chronic renal disease Hypertension Diabetes PVD on plavix therapy Ultimately patient will need a right and left heart catheterization. Patient has chronic kidney disease with a baseline creatinine of 3.1 and has an elevated risk of contrast nephropathy. A cardiac cath is planned for Thursday with minimal contrast for limited coronary angiography. Subjective Date of service: 01/30/17 Principal diagnosis: Acute Hypoxemic Resp Failure; Acute CHF exacerbation; R pleural effusion Interval history: Patient reports his breathing is improving. Reports he is diuresing well. Objective Vital Signs Temp Pulse Pulse Resp BP BP Pulse Ox 01/30/17 08:11 88 01/30/17 08:10 88 01/30/17 05:19 98.3 F 89 18 149/98 100 01/30/17 04:00 80 01/30/17 00:00 97.8 F 92 H 18 157/88 100 01/29/17 20:23 98.2 F 90 18 156/98 100 01/29/17 17:48 98.6 F 91 H 18 145/92 100 01/29/17 12:46 98.6 F 90 18 150/92 98 01/29/17 12:00 94 H 01/29/17 11:01 89 156/96 01/29/17 11:00 89 156/96 01/29/17 10:59 89 156/96 - Physical Examination General: No Apparent Distress HEENT: Positive: PERRL Cardiac: Positive: Reg Rate and Rhythm Neuro: Positive: Grossly Intact Extremities: Present: +1 Edema
[2017-01-30] MEDS: NOVOLOG SUB-Q SCH ×7 (10:11→22:36)
[2017-01-30] MEDS: COZAAR PO SCH (11:01)
[2017-01-30] MEDS: LOPRESSOR PO SCH ×2 (11:01→22:34)
[2017-01-30] MEDS: HEPARIN SUB-Q SCH ×2 (11:01→22:37)
[2017-01-30] MEDS: NORVASC PO SCH (11:01)
[2017-01-30] MEDS: PLAVIX PO SCH (11:01)
--- NOTE | 2017-01-30 12:51 | Ultrasound Report ---
ULTRASOUND CHEST History: Pleural effusion. Findings: Targeted grayscale ultrasound was performed on both sides of the chest. The images demonstrate a moderate right pleural effusion measuring 547 cc. Images also demonstrate a smaller left pleural effusion measuring 277 cc. No evidence for septation or large debris. Impression: Bilateral pleural effusions as described above.
--- NOTE | 2017-01-30 15:49 | Progress Note ---
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 He denies SOB. Objective - Vital Signs Vital signs: Vital Signs - 12hr 01/30/17 01/30/17 01/30/17 04:00 05:19 08:10 Temperature 98.3 F Pulse Rate 80 89 88 Pulse Rate [ Apical] Respiratory 18 Rate Blood Pressure 149/98 O2 Sat by Pulse 100 Oximetry 01/30/17 01/30/17 08:11 08:37 Temperature 98.2 F Pulse Rate 94 H Pulse Rate [ 88 Apical] Respiratory 18 Rate Blood Pressure 147/82 O2 Sat by Pulse 96 Oximetry - General Appearance General appearance: well-developed, well-nourished EENT: ATNC Respiratory: Present: Clear to Ascultation Cardiology: regular, S1S2 Gastrointestinal: normal, no tenderness, no distended Neurologic: alert and oriented x3 Musculoskeletal: other (trace edema) Psychiatric: mood/affect appropriate, cooperative - Lab 01/27/17 18:12 01/27/17 18:12 Most recent lab results Calcium 8.0 mg/dL (8.4-10.2) L 01/27/17 18:12
--- NOTE | 2017-01-30 16:13 | Progress Note ---
<SIVAN ADAMS - Last Filed: 01/30/17 16:14> Assessment and Plan Assessment and plan: Patient is a 61 years old male with past history past medical history of hypertension, systolic congestive heart failure, hyperlipidemia, chronic kidney failure stage III and diabetes mellitus. He has had progressive worsening of shortness of breath since November. Patient developed difficulty of breathing yesterday. Acute respiratory failure with hypoxia Etiology due to chf Patient oxygen saturation improved with 2LNC; currently SPO2 98%. No acute respiratory distress noted. Aggressive Nebulizers/Inhalers ABG when necessary Oxygen supplement Pulmonary Consulted Supportive care Acute on chronic Systolic Congestive heart failure Recent Echocardiogram ejection fraction 40-45% on 11/2016 Recent normal Stress test on 11/2016 Continues on IV Diuresis, beta blockers and ACEI/ARB Strict I&O's and daily weights Low-sodium/cardiac diet/fluid restriction Patient has right and left heart catheterization on Thursday due to chronic kidney disease with a baseline creatinine of 3.1 and has an elevated risk of contrast nephropathy per cardiology. Closely monitor electrolytes Cardiology evaluation Acute on chronic kidney failure stage III, worsening function Avoid nephrotoxic medications Nephrology consulted Diabetes mellitus Accu-Chek before meals and at bedtime Sliding scale insulin/NovoLog ADA carbohydrate consistent diet Hypertensive urgency Continue home antihypertensive medications Closely monitor blood pressure Chronic anemia H&H stable for patient at this point; no blood transfusions needed Closely monitor H&H Elevated d-dimer VQ scan no evidence of PE nigative Bilateral LE doppler DVT prophylaxis Heparin History Interval history: Patient complains shortness of breath but feeling better than yesterday. labs and nursing notes reviewed. Hospitalist Physical - Constitutional Vitals: Temp Pulse Resp BP Pulse Ox 98.2 F 94 H 18 147/82 96 01/30/17 08:37 01/30/17 08:37 01/30/17 08:37 01/30/17 08:37 01/30/17 08:37 General appearance: Present: no acute distress - EENT Eyes: Present: PERRL ENT: hearing intact - Neck Neck: Present: supple - Respiratory Respiratory effort: normal Respiratory: bilateral: wheezing - Cardiovascular Rhythm: regular Heart Sounds: Present: S1 & S2 - Abdominal General gastrointestinal: soft, non-tender - Integumentary Integumentary: Present: clear, warm, dry - Psychiatric Psychiatric: appropriate mood/affect - Neurologic Neurologic: CNII-XII intact, moves all extremities - Allied Health Allied health notes reviewed: nursing Results - Labs CBC & Chem 7: 01/27/17 18:12 01/27/17 18:12 Labs: Laboratory Last Values WBC 5.8 K/mm3 (4.5-11.0) 01/27/17 18:12 RBC 5.13 M/mm3 (3.65-5.03) H 01/27/17 18:12 Hgb 13.0 gm/dl (11.8-15.2) 01/27/17 18:12 Hct 42.4 % (35.5-45.6) 01/27/17 18:12 MCV 83 fl (84-94) L 01/27/17 18:12 MCH 25 pg (28-32) L 01/27/17 18:12 MCHC 31 % (32-34) L 01/27/17 18:12 RDW 17.5 % (13.2-15.2) H 01/27/17 18:12 Plt Count 160 K/mm3 (140-440) 01/27/17 18:12 Lymph % (Auto) 21.7 % (13.4-35.0) 01/27/17 18:12 [place] % (Auto) 9.1 % (0.0-7.3) H 01/27/17 18:12 Eos % (Auto) 0.9 % (0.0-4.3) 01/27/17 18:12 Baso % (Auto) 1.1 % (0.0-1.8) 01/27/17 18:12 Lymph # 1.3 K/mm3 (1.2-5.4) 01/27/17 18:12 [place] # 0.5 K/mm3 (0.0-0.8) 01/27/17 18:12 Eos # 0.1 K/mm3 (0.0-0.4) 01/27/17 18:12 Baso # 0.1 K/mm3 (0.0-0.1) 01/27/17 18:12 Seg Neutrophils % 67.2 % (40.0-70.0) 01/27/17 18:12 Seg Neutrophils # 3.9 K/mm3 (1.8-7.7) 01/27/17 18:12 PT 13.9 Sec. (12.2-14.9) 01/27/17 18:12 INR 1.02 (0.87-1.13) 01/27/17 18:12 APTT 30.3 Sec. (24.2-36.6) 01/27/17 18:12 D-Dimer 390.66 ng/mlDDU (0-234) H 01/27/17 18:12 POC ABG pH 7.392 (7.35-7.45) 01/29/17 10:51 POC ABG pCO2 43.9 (35-45) 01/29/17 10:51 POC ABG pO2 76 (80-105) L 01/29/17 10:51 POC ABG HCO3 26.7 01/29/17 10:51 POC ABG Total CO2 28 01/29/17 10:51 POC ABG O2 Sat 95 01/29/17 10:51 POC ABG Base Excess 2 01/29/17 10:51 FiO2 21 % 01/29/17 10:51 Sodium 144 mmol/L (137-145) 01/27/17 18:12 Potassium 4.6 mmol/L (3.6-5.0) 01/27/17 18:12 Chloride 103.3 mmol/L (98-107) 01/27/17 18:12 Carbon Dioxide 26 mmol/L (22-30) 01/27/17 18:12 Anion Gap 19 mmol/L 01/27/17 18:12 BUN 29 mg/dL (9-20) H 01/27/17 18:12 Creatinine 3.1 mg/dL (0.8-1.5) H 01/27/17 18:12 Estimated GFR 25 ml/min 01/27/17 18:12 BUN/Creatinine Ratio 9 % 01/27/17 18:12 Glucose 155 mg/dL (75-100) H 01/27/17 18:12 POC Glucose 170 (70-105) H 01/29/17 20:28 Calcium 8.0 mg/dL (8.4-10.2) L 01/27/17 18:12 Troponin T 0.063 ng/mL (0.00-0.029) H 01/27/17 23:50 NT-Pro-B Natriuret Pep 08317 pg/mL (0-900) H 01/27/17 18:12 Triglycerides 97 mg/dL (2-149) 01/27/17 18:12 Cholesterol 146 mg/dL (50-199) 01/27/17 18:12 LDL Cholesterol Direct 80 mg/dL (50-130) 01/27/17 18:12 HDL Cholesterol 47 mg/dL (40-59) 01/27/17 18:12 Cholesterol/HDL Ratio 3.10 % 01/27/17 18:12 <FACUNDO MARTELL M - Last Filed: 01/31/17 08:37> Assessment and Plan Assessment and plan: I saw and evaluated the patient. I agree with the findings and the plan of care as documented in the Nurse Practitioner's progress note. Hospitalist Physical - Constitutional Vitals: Temp Pulse Resp BP Pulse Ox 98.0 F 87 18 154/91 100 01/31/17 04:07 01/31/17 04:07 01/31/17 04:07 01/31/17 04:07 01/31/17 04:07 Results - Labs CBC & Chem 7: 01/27/17 18:12 01/31/17 07:34 Labs: Laboratory Last Values WBC 5.8 K/mm3 (4.5-11.0) 01/27/17 18:12 RBC 5.13 M/mm3 (3.65-5.03) H 01/27/17 18:12 Hgb 13.0 gm/dl (11.8-15.2) 01/27/17 18:12 Hct 42.4 % (35.5-45.6) 01/27/17 18:12 MCV 83 fl (84-94) L 01/27/17 18:12 MCH 25 pg (28-32) L 01/27/17 18:12 MCHC 31 % (32-34) L 01/27/17 18:12 RDW 17.5 % (13.2-15.2) H 01/27/17 18:12 Plt Count 160 K/mm3 (140-440) 01/27/17 18:12 Lymph % (Auto) 21.7 % (13.4-35.0) 01/27/17 18:12 [place] % (Auto) 9.1 % (0.0-7.3) H 01/27/17 18:12 Eos % (Auto) 0.9 % (0.0-4.3) 01/27/17 18:12 Baso % (Auto) 1.1 % (0.0-1.8) 01/27/17 18:12 Lymph # 1.3 K/mm3 (1.2-5.4) 01/27/17 18:12 [place] # 0.5 K/mm3 (0.0-0.8) 01/27/17 18:12 Eos # 0.1 K/mm3 (0.0-0.4) 01/27/17 18:12 Baso # 0.1 K/mm3 (0.0-0.1) 01/27/17 18:12 Seg Neutrophils % 67.2 % (40.0-70.0) 01/27/17 18:12 Seg Neutrophils # 3.9 K/mm3 (1.8-7.7) 01/27/17 18:12 PT 13.9 Sec. (12.2-14.9) 01/27/17 18:12 INR 1.02 (0.87-1.13) 01/27/17 18:12 APTT 30.3 Sec. (24.2-36.6) 01/27/17 18:12 D-Dimer 390.66 ng/mlDDU (0-234) H 01/27/17 18:12 POC ABG pH 7.392 (7.35-7.45) 01/29/17 10:51 POC ABG pCO2 43.9 (35-45) 01/29/17 10:51 POC ABG pO2 76 (80-105) L 01/29/17 10:51 POC ABG HCO3 26.7 01/29/17 10:51 POC ABG Total CO2 28 01/29/17 10:51 POC ABG O2 Sat 95 01/29/17 10:51 POC ABG Base Excess 2 01/29/17 10:51 FiO2 21 % 01/29/17 10:51 Sodium 139 mmol/L (137-145) 01/31/17 07:34 Potassium 3.8 mmol/L (3.6-5.0) 01/31/17 07:34 Chloride 98.0 mmol/L (98-107) 01/31/17 07:34 Carbon Dioxide 29 mmol/L (22-30) 01/31/17 07:34 Anion Gap 16 mmol/L 01/31/17 07:34 BUN 44 mg/dL (9-20) H 01/31/17 07:34 Creatinine 3.4 mg/dL (0.8-1.5) H 01/31/17 07:34 Estimated GFR 22 ml/min 01/31/17 07:34 BUN/Creatinine Ratio 13 % 01/31/17 07:34 Glucose 119 mg/dL (75-100) H 01/31/17 07:34 POC Glucose 205 (70-105) H 01/30/17 20:39 Calcium 7.9 mg/dL (8.4-10.2) L 01/31/17 07:34 Troponin T 0.063 ng/mL (0.00-0.029) H 01/27/17 23:50 NT-Pro-B Natriuret Pep 86980 pg/mL (0-900) H 01/27/17 18:12 Triglycerides 97 mg/dL (2-149) 01/27/17 18:12 Cholesterol 146 mg/dL (50-199) 01/27/17 18:12 LDL Cholesterol Direct 80 mg/dL (50-130) 01/27/17 18:12 HDL Cholesterol 47 mg/dL (40-59) 01/27/17 18:12 Cholesterol/HDL Ratio 3.10 % 01/27/17 18:12
[2017-01-30] MEDS: LEVEMIR SUB-Q SCH (22:35)
[2017-01-31] MEDS: LASIX IV SCH (06:52)
[2017-01-31 08:05] LABS: Calcium 7.9 mg/dL (8.4-10.2); Potassium 3.8 mmol/L (3.6-5.0)
[2017-01-31] MEDS: NORVASC PO SCH (09:48)
[2017-01-31] MEDS: COZAAR PO SCH (09:48)
[2017-01-31] MEDS: HEPARIN SUB-Q SCH ×2 (09:49→22:08)
[2017-01-31] MEDS: LOPRESSOR PO SCH ×2 (09:49→22:08)
[2017-01-31] MEDS: PLAVIX PO SCH (09:49)
[2017-01-31] MEDS: NOVOLOG SUB-Q SCH ×7 (10:08→22:08)
--- NOTE | 2017-01-31 11:46 | Progress Note ---
Assessment and Plan Acute systolic heart failure low probability for PE on V/Q scan EF 40-45% on echo 11/2016 normal perfusion MPI 11/2016 Chronic renal disease Hypertension Diabetes PVD on plavix therapy Ultimately patient will need a right and left heart catheterization. Patient has chronic kidney disease with a baseline creatinine of 3.1 and has an elevated risk of contrast nephropathy. A cardiac cath is planned for Thursday with minimal contrast for limited coronary angiography. Subjective Date of service: 01/31/17 Principal diagnosis: Acute Hypoxemic Resp Failure; Acute CHF exacerbation; R pleural effusion Interval history: No acute complaints. Objective Vital Signs Temp Pulse Resp BP BP Pulse Ox 01/31/17 09:49 82 143/88 01/31/17 09:48 82 143/88 01/31/17 08:00 83 01/31/17 04:07 98.0 F 87 18 154/91 100 01/31/17 00:10 98.1 F 90 18 156/92 100 01/30/17 22:34 91 H 146/86 01/30/17 20:50 87 01/30/17 20:17 98.1 F 86 18 146/86 99 01/30/17 17:15 98.0 F 87 18 136/77 99 - Physical Examination General: No Apparent Distress HEENT: Positive: PERRL Cardiac: Positive: Reg Rate and Rhythm Lungs: Positive: Decreased Breath Sounds Neuro: Positive: Grossly Intact Abdomen: Positive: Soft, Active Bowel Sounds Extremities: Present: +1 Edema - Labs and Meds Comprehensive Metabolic Panel 01/31/17 Range/Units 07:34 Sodium 139 (137-145) mmol/L Potassium 3.8 (3.6-5.0) mmol/L Chloride 98.0 (98-107) mmol/L Carbon Dioxide 29 (22-30) mmol/L BUN 44 H (9-20) mg/dL Creatinine 3.4 H (0.8-1.5) mg/dL Glucose 119 H (75-100) mg/dL Calcium 7.9 L (8.4-10.2) mg/dL
--- NOTE | 2017-01-31 13:29 | Progress Note ---
Assessment and Plan Assessment and plan: 61-year-old -[place] male was admitted after he was present for shortness of breath Acute systolic CHF - Ejection fraction was 40-45% - MPI was negative on 12/09, patient will have right and left heart cath - Patient is on Lasix, metoprolol Acute on Chronic kidney disease - Creatinine increased from 3.1-3.4 - I decreased the dose of Lasix from twice a day to once a day, follow BMP - Cardiology consulted Hypertension - On amlodipine Diabetes mellitus type 2 - On basal and insulin sliding scale insulin Peripheral vascular disease - Continue Plavix DVT prophylaxis - Heparin Disposition - Continue inpatient care. History Interval history: Patient was seen and evaluated this morning, no shortness of breath or other complaints. Hospitalist Physical - Physical exam Narrative exam: Not in cardiopulmonary distress. The patient appeared well nourished and normally developed. Vital signs as documented. Head exam is unremarkable. No scleral icterus . Neck is without jugular venous distension, thyromegaly, or carotid bruits. Lungs are clear to auscultation. Cardiac exam reveals regular rate and Rhythm. First and second heart sounds normal. No murmurs, rubs or gallops. Abdominal exam reveals normal bowel sounds, no masses, no organomegaly and no aortic enlargement. Extremities are nonedematous and both femoral and pedal pulses are normal. 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 No focal weakness. - Constitutional Vitals: Temp Pulse Resp BP Pulse Ox 98.0 F 82 18 143/88 100 01/31/17 04:07 01/31/17 09:49 01/31/17 04:07 01/31/17 09:49 01/31/17 04:07 General appearance: Present: no acute distress Results - Labs CBC & Chem 7: 01/27/17 18:12 01/31/17 07:34 Labs: Laboratory Last Values WBC 5.8 K/mm3 (4.5-11.0) 01/27/17 18:12 RBC 5.13 M/mm3 (3.65-5.03) H 01/27/17 18:12 Hgb 13.0 gm/dl (11.8-15.2) 01/27/17 18:12 Hct 42.4 % (35.5-45.6) 01/27/17 18:12 MCV 83 fl (84-94) L 01/27/17 18:12 MCH 25 pg (28-32) L 01/27/17 18:12 MCHC 31 % (32-34) L 01/27/17 18:12 RDW 17.5 % (13.2-15.2) H 01/27/17 18:12 Plt Count 160 K/mm3 (140-440) 01/27/17 18:12 Lymph % (Auto) 21.7 % (13.4-35.0) 01/27/17 18:12 [place] % (Auto) 9.1 % (0.0-7.3) H 01/27/17 18:12 Eos % (Auto) 0.9 % (0.0-4.3) 01/27/17 18:12 Baso % (Auto) 1.1 % (0.0-1.8) 01/27/17 18:12 Lymph # 1.3 K/mm3 (1.2-5.4) 01/27/17 18:12 [place] # 0.5 K/mm3 (0.0-0.8) 01/27/17 18:12 Eos # 0.1 K/mm3 (0.0-0.4) 01/27/17 18:12 Baso # 0.1 K/mm3 (0.0-0.1) 01/27/17 18:12 Seg Neutrophils % 67.2 % (40.0-70.0) 01/27/17 18:12 Seg Neutrophils # 3.9 K/mm3 (1.8-7.7) 01/27/17 18:12 PT 13.9 Sec. (12.2-14.9) 01/27/17 18:12 INR 1.02 (0.87-1.13) 01/27/17 18:12 APTT 30.3 Sec. (24.2-36.6) 01/27/17 18:12 D-Dimer 390.66 ng/mlDDU (0-234) H 01/27/17 18:12 POC ABG pH 7.392 (7.35-7.45) 01/29/17 10:51 POC ABG pCO2 43.9 (35-45) 01/29/17 10:51 POC ABG pO2 76 (80-105) L 01/29/17 10:51 POC ABG HCO3 26.7 01/29/17 10:51 POC ABG Total CO2 28 01/29/17 10:51 POC ABG O2 Sat 95 01/29/17 10:51 POC ABG Base Excess 2 01/29/17 10:51 FiO2 21 % 01/29/17 10:51 Sodium 139 mmol/L (137-145) 01/31/17 07:34 Potassium 3.8 mmol/L (3.6-5.0) 01/31/17 07:34 Chloride 98.0 mmol/L (98-107) 01/31/17 07:34 Carbon Dioxide 29 mmol/L (22-30) 01/31/17 07:34 Anion Gap 16 mmol/L 01/31/17 07:34 BUN 44 mg/dL (9-20) H 01/31/17 07:34 Creatinine 3.4 mg/dL (0.8-1.5) H 01/31/17 07:34 Estimated GFR 22 ml/min 01/31/17 07:34 BUN/Creatinine Ratio 13 % 01/31/17 07:34 Glucose 119 mg/dL (75-100) H 01/31/17 07:34 POC Glucose 139 (70-105) H 01/31/17 12:04 Calcium 7.9 mg/dL (8.4-10.2) L 01/31/17 07:34 Troponin T 0.063 ng/mL (0.00-0.029) H 01/27/17 23:50 NT-Pro-B Natriuret Pep 18660 pg/mL (0-900) H 01/27/17 18:12 Triglycerides 97 mg/dL (2-149) 01/27/17 18:12 Cholesterol 146 mg/dL (50-199) 01/27/17 18:12 LDL Cholesterol Direct 80 mg/dL (50-130) 01/27/17 18:12 HDL Cholesterol 47 mg/dL (40-59) 01/27/17 18:12 Cholesterol/HDL Ratio 3.10 % 01/27/17 18:12
--- NOTE | 2017-01-31 17:34 | Progress Note ---
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 Objective - Vital Signs Vital signs: Vital Signs - 12hr 01/31/17 01/31/17 01/31/17 08:00 09:48 09:49 Pulse Rate 83 82 82 Blood Pressure 143/88 143/88 - General Appearance General appearance: well-developed, well-nourished EENT: ATNC Respiratory: Present: Clear to Ascultation Cardiology: regular, S1S2 Gastrointestinal: normal, no tenderness, no distended Integumentary: no rash Musculoskeletal: other (1+ edema) Psychiatric: cooperative - Lab 01/27/17 18:12 01/31/17 07:34 Most recent lab results Calcium 7.9 mg/dL (8.4-10.2) L 01/31/17 07:34
--- NOTE | 2017-01-31 18:28 | Progress Note ---
Assessment and Plan Acute Hypoxemic Respiratory Failure Right Pleural Effusion Acute exacerbation of CHF SANAM on CKD Hypertension Diabetes. Hyperlipidemia. Elevated D dimer. - continue to wean oxygen for sats > 94% - get US thoracentesis and send for studies - continue diuresis but follow I's & O's as well as BUN/Cr - VTE w/up negative (Dopplers and VQ scan) - continue albuterol prn - continue VTE prophylaxis Subjective Date of service: 01/31/17 Principal diagnosis: Acute Hypoxemic Resp Failure; Acute CHF exacerbation; R pleural effusion Interval history: Patient is seen today for: Acute Hypoxemic Resp Failure; Acute CHF exacerbation ; R pleural effusion Seen and examined at bedside; 24hour events reviewed; nursing and respiratory care staff consulted; no adverse overnight events reported to me; resting in bed ; feels better; on 2L NC; denies any cough or hemoptysis; no acute chest pains; No N/V/F/C Objective - Exam Narrative Exam: Not in cardiopulmonary distress. The patient appeared well nourished and normally developed. Vital signs as documented. Head exam is unremarkable. No scleral icterus . Neck is without jugular venous distension, thyromegaly, or carotid bruits. Lungs are clear to auscultation. Cardiac exam reveals regular rate and Rhythm. First and second heart sounds normal. No murmurs, rubs or gallops. Abdominal exam reveals normal bowel sounds, no masses, no organomegaly and no aortic enlargement. Extremities are nonedematous and both femoral and pedal pulses are normal. 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 No focal weakness. Vital Signs - 12hr 01/31/17 01/31/17 01/31/17 08:00 08:45 09:48 Temperature 98.6 F Pulse Rate 83 44 L 82 Respiratory 24 Rate Blood Pressure 143/88 143/88 O2 Sat by Pulse 100 Oximetry 01/31/17 01/31/17 01/31/17 09:49 12:30 16:33 Temperature 98.7 F 98.7 F Pulse Rate 82 84 Respiratory 20 22 Rate Blood Pressure 143/88 149/85 144/87 O2 Sat by Pulse 100 Oximetry Constitutional: alert, appears uncomfortable Eyes: non-icteric ENT: oropharynx moist, other (no thyromegaly) Neck: supple, no lymphadenopathy, no JVD Effort: mildly labored Ascultation: Bilateral: clear, diminished breath sounds Percussion: Right: dull (base) Cardiovascular: regular rate and rhythm, other (no rubs/murmurs) Gastrointestinal: normoactive bowel sounds, soft, non-tender, non-distended, other (No HSM) Integumentary: normal Extremities: no cyanosis, pulses normal, no ischemia or petechiae, edema Neurologic: normal mental status, non-focal exam, pupils equal and round, motor strength normal and, other (moves all 4 extremities) Psychiatric: mood appropriate, affect normal CBC and BMP: 01/27/17 18:12 01/31/17 07:34 ABG, PT/INR, D-dimer: ABG POC ABG pH 7.392 (7.35-7.45) 01/29/17 10:51 POC ABG pCO2 43.9 (35-45) 01/29/17 10:51 POC ABG pO2 76 (80-105) L 01/29/17 10:51 POC ABG HCO3 26.7 01/29/17 10:51 POC ABG Total CO2 28 01/29/17 10:51 POC ABG O2 Sat 95 01/29/17 10:51 PT/INR, D-dimer PT 13.9 Sec. (12.2-14.9) 01/27/17 18:12 INR 1.02 (0.87-1.13) 01/27/17 18:12 D-Dimer 390.66 ng/mlDDU (0-234) H 01/27/17 18:12 Abnormal lab findings: Abnormal Labs 01/27/17 01/27/17 01/27/17 18:12 18:12 18:12 RBC 5.13 H MCV 83 L MCH 25 L MCHC 31 L RDW 17.5 H [place] % (Auto) 9.1 H D-Dimer 390.66 H POC ABG pO2 BUN 29 H Creatinine 3.1 H Glucose 155 H POC Glucose Calcium 8.0 L Troponin T 0.076 H NT-Pro-B Natriuret Pep 53235 H 01/27/17 01/28/17 01/28/17 23:50 11:05 16:53 RBC MCV MCH MCHC RDW [place] % (Auto) D-Dimer POC ABG pO2 BUN Creatinine Glucose POC Glucose 304 H 57 L Calcium Troponin T 0.063 H NT-Pro-B Natriuret Pep 01/28/17 01/29/17 01/29/17 19:52 07:55 10:51 RBC MCV MCH MCHC RDW [place] % (Auto) D-Dimer POC ABG pO2 76 L BUN Creatinine Glucose POC Glucose 161 H 146 H Calcium Troponin T NT-Pro-B Natriuret Pep 01/29/17 01/29/17 01/29/17 11:53 16:07 20:28 RBC MCV MCH MCHC RDW [place] % (Auto) D-Dimer POC ABG pO2 BUN Creatinine Glucose POC Glucose 272 H 157 H 170 H Calcium Troponin T NT-Pro-B Natriuret Pep 01/30/17 01/30/17 01/30/17 08:40 11:53 20:39 RBC MCV MCH MCHC RDW [place] % (Auto) D-Dimer POC ABG pO2 BUN Creatinine Glucose POC Glucose 169 H 237 H 205 H Calcium Troponin T NT-Pro-B Natriuret Pep 01/31/17 01/31/17 01/31/17 07:34 10:03 12:04 RBC MCV MCH MCHC RDW [place] % (Auto) D-Dimer POC ABG pO2 BUN 44 H Creatinine 3.4 H Glucose 119 H POC Glucose 168 H 139 H Calcium 7.9 L Troponin T NT-Pro-B Natriuret Pep 01/31/17 15:44 RBC MCV MCH MCHC RDW [place] % (Auto) D-Dimer POC ABG pO2 BUN Creatinine Glucose POC Glucose 212 H Calcium Troponin T NT-Pro-B Natriuret Pep
[2017-01-31] MEDS: LEVEMIR SUB-Q SCH (22:08)
[2017-02-01] MEDS: LASIX IV SCH (05:20)
[2017-02-01 05:52] LABS: Calcium 7.7 mg/dL (8.4-10.2); Chloride 98.1 mmol/L (98-107); Potassium 4.1 mmol/L (3.6-5.0)
[2017-02-01] MEDS: NOVOLOG SUB-Q SCH ×7 (07:30→22:22)
[2017-02-01] MEDS: PERCOCET 5/325 PO PRN ×3 (07:45→15:56)
[2017-02-01] MEDS: PLAVIX PO SCH (09:50)
[2017-02-01] MEDS: COZAAR PO SCH (09:50)
[2017-02-01] MEDS: LOPRESSOR PO SCH ×2 (09:50→22:20)
[2017-02-01] MEDS: NORVASC PO SCH (09:51)
[2017-02-01] MEDS: HEPARIN SUB-Q SCH ×2 (09:52→22:22)
--- NOTE | 2017-02-01 11:29 | Progress Note ---
Assessment and Plan Acute systolic heart failure low probability for PE on V/Q scan EF 40-45% on echo 11/2016 normal perfusion MPI 11/2016 Chronic renal disease Hypertension Diabetes PVD on plavix therapy Recommend: Ultimately patient will need a right and left heart catheterization. Patient has chronic kidney disease with a baseline creatinine of 3.1 and has an elevated risk of contrast nephropathy. A cardiac cath is planned for Thursday with minimal contrast for limited coronary angiography. Extensively discussed with patient and he wants to think about it further. Subjective Date of service: 02/01/17 Principal diagnosis: Acute Hypoxemic Resp Failure; Acute CHF exacerbation; R pleural effusion Interval history: No cardiac complaints Objective Vital Signs Temp Pulse Resp BP Pulse Ox 02/01/17 04:30 98.5 F 84 18 149/91 100 02/01/17 04:00 85 01/31/17 23:21 98.1 F 91 H 20 152/89 100 01/31/17 20:44 98.0 F 89 21 140/85 100 01/31/17 16:33 98.7 F 84 22 144/87 100 01/31/17 12:30 98.7 F 20 149/85 - Physical Examination General: No Apparent Distress HEENT: Positive: PERRL Neck: Positive: neck supple Cardiac: Positive: Reg Rate and Rhythm Lungs: Positive: clear to auscultation, Normal Breath Sounds Neuro: Positive: Grossly Intact Abdomen: Positive: Soft, Active Bowel Sounds Extremities: Present: +1 Edema - Labs and Meds Comprehensive Metabolic Panel 02/01/17 Range/Units 04:39 Sodium 139 (137-145) mmol/L Potassium 4.1 (3.6-5.0) mmol/L Chloride 98.1 (98-107) mmol/L Carbon Dioxide 27 (22-30) mmol/L BUN 47 H (9-20) mg/dL Creatinine 3.3 H (0.8-1.5) mg/dL Glucose 174 H (75-100) mg/dL Calcium 7.7 L (8.4-10.2) mg/dL
--- NOTE | 2017-02-01 11:56 | Progress Note ---
Assessment and Plan Acute Hypoxemic Respiratory Failure Right Pleural Effusion Acute exacerbation of CHF SANAM on CKD Hypertension Diabetes. Hyperlipidemia. Elevated D dimer. - continue to wean oxygen for sats > 94% - get US thoracentesis and send for studies - continue diuresis but follow I's & O's as well as BUN/Cr - RA ABG reviewed - VTE w/up negative (Dopplers and VQ scan) - continue albuterol prn - continue VTE prophylaxis Subjective Date of service: 02/01/17 Principal diagnosis: Acute Hypoxemic Resp Failure; Acute CHF exacerbation; R pleural effusion Interval history: Patient is seen today for: Acute Hypoxemic Resp Failure; Acute CHF exacerbation ; R pleural effusion Seen and examined at bedside; 24hour events reviewed; nursing and respiratory care staff consulted; no adverse overnight events reported to me; resting in bed ; feels better; awaiting thoracentesis; denies acute chest pains or palpitations ; remains on 2L NC Objective Vital Signs - 12hr 02/01/17 02/01/17 04:00 04:30 Temperature 98.5 F Pulse Rate 85 84 Respiratory 18 Rate Blood Pressure 149/91 O2 Sat by Pulse 100 Oximetry Constitutional: alert, appears uncomfortable Eyes: non-icteric ENT: oropharynx moist, other (no thyromegaly) Neck: supple, no lymphadenopathy, no JVD Effort: mildly labored Ascultation: Bilateral: rales Percussion: Right: dull (base) Cardiovascular: regular rate and rhythm, other (no rubs/murmurs) Gastrointestinal: normoactive bowel sounds, soft, non-tender, non-distended, other (No HSM) Integumentary: normal Extremities: no cyanosis, pulses normal, no ischemia or petechiae, edema Neurologic: normal mental status, non-focal exam, pupils equal and round, motor strength normal and, other (moves all 4 extremities) Psychiatric: mood appropriate, affect normal CBC and BMP: 02/02/17 05:30 02/05/17 04:56 ABG, PT/INR, D-dimer: ABG POC ABG pH 7.392 (7.35-7.45) 01/29/17 10:51 POC ABG pCO2 43.9 (35-45) 01/29/17 10:51 POC ABG pO2 76 (80-105) L 01/29/17 10:51 POC ABG HCO3 26.7 01/29/17 10:51 POC ABG Total CO2 28 01/29/17 10:51 POC ABG O2 Sat 95 01/29/17 10:51 PT/INR, D-dimer PT 13.9 Sec. (12.2-14.9) 01/27/17 18:12 INR 1.02 (0.87-1.13) 01/27/17 18:12 D-Dimer 390.66 ng/mlDDU (0-234) H 01/27/17 18:12 Abnormal lab findings: Abnormal Labs 01/27/17 01/27/17 01/27/17 18:12 18:12 18:12 RBC 5.13 H MCV 83 L MCH 25 L MCHC 31 L RDW 17.5 H Maury % (Auto) 9.1 H D-Dimer 390.66 H POC ABG pO2 BUN 29 H Creatinine 3.1 H Glucose 155 H POC Glucose Uric Acid Calcium 8.0 L Troponin T 0.076 H NT-Pro-B Natriuret Pep 69999 H 01/27/17 01/28/17 01/28/17 23:50 11:05 16:53 RBC MCV MCH MCHC RDW Maury % (Auto) D-Dimer POC ABG pO2 BUN Creatinine Glucose POC Glucose 304 H 57 L Uric Acid Calcium Troponin T 0.063 H NT-Pro-B Natriuret Pep 01/28/17 01/29/17 01/29/17 19:52 07:55 10:51 RBC MCV MCH MCHC RDW Maury % (Auto) D-Dimer POC ABG pO2 76 L BUN Creatinine Glucose POC Glucose 161 H 146 H Uric Acid Calcium Troponin T NT-Pro-B Natriuret Pep 01/29/17 01/29/17 01/29/17 11:53 16:07 20:28 RBC MCV MCH MCHC RDW Maury % (Auto) D-Dimer POC ABG pO2 BUN Creatinine Glucose POC Glucose 272 H 157 H 170 H Uric Acid Calcium Troponin T NT-Pro-B Natriuret Pep 01/30/17 01/30/17 01/30/17 08:40 11:53 20:39 RBC MCV MCH MCHC RDW Maury % (Auto) D-Dimer POC ABG pO2 BUN Creatinine Glucose POC Glucose 169 H 237 H 205 H Uric Acid Calcium Troponin T NT-Pro-B Natriuret Pep 01/31/17 01/31/17 01/31/17 07:34 10:03 12:04 RBC MCV MCH MCHC RDW Maury % (Auto) D-Dimer POC ABG pO2 BUN 44 H Creatinine 3.4 H Glucose 119 H POC Glucose 168 H 139 H Uric Acid Calcium 7.9 L Troponin T NT-Pro-B Natriuret Pep 01/31/17 01/31/17 02/01/17 15:44 21:57 03:25 RBC MCV MCH MCHC RDW Maury % (Auto) D-Dimer POC ABG pO2 BUN Creatinine Glucose POC Glucose 212 H 219 H 188 H Uric Acid Calcium Troponin T NT-Pro-B Natriuret Pep 02/01/17 02/01/17 02/01/17 04:39 04:39 11:03 RBC MCV MCH MCHC RDW Maury % (Auto) D-Dimer POC ABG pO2 BUN 47 H Creatinine 3.3 H Glucose 174 H POC Glucose 144 H Uric Acid 8.0 H Calcium 7.7 L Troponin T NT-Pro-B Natriuret Pep
[2017-02-01] MEDS ORDERED: NACL 0.9% 500 ML 500 ML IV SCH (12:00)
--- NOTE | 2017-02-01 12:38 | Progress Note ---
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 Continue current management * Cardiology recommendations' noted * Patient is aware of risk of RICHARD and possibility of SANAM/ESRD requiring dialysis * Continue diuresis for now - Lasix 40mg IV daily * Strict I/O * Avoid nephrotoxins Subjective Date of service: 02/01/17 Principal diagnosis: Acute Hypoxemic Resp Failure; Acute CHF exacerbation; R pleural effusion Interval history: Patient denies SOB. Objective - Vital Signs Vital signs: Vital Signs - 12hr 02/01/17 02/01/17 04:00 04:30 Temperature 98.5 F Pulse Rate 85 84 Respiratory 18 Rate Blood Pressure 149/91 O2 Sat by Pulse 100 Oximetry - General Appearance General appearance: well-developed, well-nourished EENT: ATNC Respiratory: Present: Clear to Ascultation Cardiology: regular, S1S2 Gastrointestinal: normal, no tenderness, no distended Integumentary: no rash Neurologic: alert and oriented x3 Musculoskeletal: other (1+ pretibial edema) Psychiatric: cooperative - Lab 01/27/17 18:12 02/01/17 04:39 Most recent lab results Calcium 7.7 mg/dL (8.4-10.2) L 02/01/17 04:39
--- NOTE | 2017-02-01 13:49 | Progress Note ---
Assessment and Plan Assessment and plan: 61-year-old -[place] male was admitted after he was present for shortness of breath Acute systolic CHF - Ejection fraction was 40-45% - MPI was negative on 12/09, patient will have right and left heart cath - Patient is on Lasix, metoprolol - Cardiology following Acute on Chronic kidney disease - Creatinine is 3.3 today - I decreased the dose of Lasix from twice a day to once a day, follow BMP - Nephrology following Hypertension - On amlodipine Diabetes mellitus type 2 - On basal and insulin sliding scale insulin Peripheral vascular disease - Continue Plavix DVT prophylaxis - Heparin Disposition - Continue inpatient care. History Interval history: Patient was seen and evaluated this morning, no shortness of breath or other complaints. Hospitalist Physical - Physical exam Narrative exam: Not in cardiopulmonary distress. The patient appeared well nourished and normally developed. Vital signs as documented. Head exam is unremarkable. No scleral icterus . Neck is without jugular venous distension, thyromegaly, or carotid bruits. Lungs are clear to auscultation. Cardiac exam reveals regular rate and Rhythm. First and second heart sounds normal. No murmurs, rubs or gallops. Abdominal exam reveals normal bowel sounds, no masses, no organomegaly and no aortic enlargement. Extremities are nonedematous and both femoral and pedal pulses are normal. DIRECTOR OF ALUMNI RELATIONS: Alert and oriented 3. No focal weakness. - Constitutional Vitals: Temp Pulse Resp BP Pulse Ox 98.5 F 84 18 149/91 100 02/01/17 04:30 02/01/17 04:30 02/01/17 04:30 02/01/17 04:30 02/01/17 04:30 General appearance: Present: no acute distress Results - Labs CBC & Chem 7: 01/27/17 18:12 02/01/17 04:39 Labs: Laboratory Last Values WBC 5.8 K/mm3 (4.5-11.0) 01/27/17 18:12 RBC 5.13 M/mm3 (3.65-5.03) H 01/27/17 18:12 Hgb 13.0 gm/dl (11.8-15.2) 01/27/17 18:12 Hct 42.4 % (35.5-45.6) 01/27/17 18:12 MCV 83 fl (84-94) L 01/27/17 18:12 MCH 25 pg (28-32) L 01/27/17 18:12 MCHC 31 % (32-34) L 01/27/17 18:12 RDW 17.5 % (13.2-15.2) H 01/27/17 18:12 Plt Count 160 K/mm3 (140-440) 01/27/17 18:12 Lymph % (Auto) 21.7 % (13.4-35.0) 01/27/17 18:12 [place] % (Auto) 9.1 % (0.0-7.3) H 01/27/17 18:12 Eos % (Auto) 0.9 % (0.0-4.3) 01/27/17 18:12 Baso % (Auto) 1.1 % (0.0-1.8) 01/27/17 18:12 Lymph # 1.3 K/mm3 (1.2-5.4) 01/27/17 18:12 [place] # 0.5 K/mm3 (0.0-0.8) 01/27/17 18:12 Eos # 0.1 K/mm3 (0.0-0.4) 01/27/17 18:12 Baso # 0.1 K/mm3 (0.0-0.1) 01/27/17 18:12 Seg Neutrophils % 67.2 % (40.0-70.0) 01/27/17 18:12 Seg Neutrophils # 3.9 K/mm3 (1.8-7.7) 01/27/17 18:12 PT 13.9 Sec. (12.2-14.9) 01/27/17 18:12 INR 1.02 (0.87-1.13) 01/27/17 18:12 APTT 30.3 Sec. (24.2-36.6) 01/27/17 18:12 D-Dimer 390.66 ng/mlDDU (0-234) H 01/27/17 18:12 POC ABG pH 7.392 (7.35-7.45) 01/29/17 10:51 POC ABG pCO2 43.9 (35-45) 01/29/17 10:51 POC ABG pO2 76 (80-105) L 01/29/17 10:51 POC ABG HCO3 26.7 01/29/17 10:51 POC ABG Total CO2 28 01/29/17 10:51 POC ABG O2 Sat 95 01/29/17 10:51 POC ABG Base Excess 2 01/29/17 10:51 FiO2 21 % 01/29/17 10:51 Sodium 139 mmol/L (137-145) 02/01/17 04:39 Potassium 4.1 mmol/L (3.6-5.0) 02/01/17 04:39 Chloride 98.1 mmol/L (98-107) 02/01/17 04:39 Carbon Dioxide 27 mmol/L (22-30) 02/01/17 04:39 Anion Gap 18 mmol/L 02/01/17 04:39 BUN 47 mg/dL (9-20) H 02/01/17 04:39 Creatinine 3.3 mg/dL (0.8-1.5) H 02/01/17 04:39 Estimated GFR 23 ml/min 02/01/17 04:39 BUN/Creatinine Ratio 14 % 02/01/17 04:39 Glucose 174 mg/dL (75-100) H 02/01/17 04:39 POC Glucose 144 (70-105) H 02/01/17 11:03 Uric Acid 8.0 mg/dL (3.5-7.6) H 02/01/17 04:39 Calcium 7.7 mg/dL (8.4-10.2) L 02/01/17 04:39 Troponin T 0.063 ng/mL (0.00-0.029) H 01/27/17 23:50 NT-Pro-B Natriuret Pep 08532 pg/mL (0-900) H 01/27/17 18:12 Triglycerides 97 mg/dL (2-149) 01/27/17 18:12 Cholesterol 146 mg/dL (50-199) 01/27/17 18:12 LDL Cholesterol Direct 80 mg/dL (50-130) 01/27/17 18:12 HDL Cholesterol 47 mg/dL (40-59) 01/27/17 18:12 Cholesterol/HDL Ratio 3.10 % 01/27/17 18:12
[2017-02-01] MEDS: K-DUR PO SCH (15:52)
[2017-02-01] MEDS: LEVEMIR SUB-Q SCH (22:22)
[2017-02-02] MEDS ORDERED: NACL 0.9% 500 ML 500 ML IV SCH (05:00)
[2017-02-02] MEDS: LASIX IV SCH (06:06)
[2017-02-02 06:08] LABS: Hematocrit 39.4 % (35.5-45.6); Hemoglobin 12.5 gm/dl (11.8-15.2); Mean Corpuscular HGB Conc 32 % (32-34); Mean Corpuscular Volume 82 fl (84-94); Platelet Count 201 K/mm3 (140-440); Red Blood Count 4.83 M/mm3 (3.65-5.03)
[2017-02-02 06:12] LABS: Mean Corpuscular Hemoglobin 26 pg (28-32)
[2017-02-02 06:19] LABS: INR 0.99 (0.87-1.13)
[2017-02-02 06:20] LABS: Partial Thromboplastin Time 32.9 Sec. (24.2-36.6)
[2017-02-02 06:28] LABS: Calcium 8.1 mg/dL (8.4-10.2); Potassium 4.9 mmol/L (3.6-5.0)
[2017-02-02] MEDS: NOVOLOG SUB-Q SCH ×7 (08:00→22:37)
--- NOTE | 2017-02-02 09:34 | Progress Note ---
Subjective Principal diagnosis: Acute Hypoxemic Resp Failure; Acute CHF exacerbation; R pleural effusion Interval history: Patient was seen today for follow-up, on many renal related issues Patient currently denies having any symptoms of chest pain pressure shortness of breath Better aware about renal related issues Interdisciplinary notes were reviewed Vitals labs intake and output medications were reviewed from today Allergies: Reviewed Social history: Reviewed Family history: Reviewed Physical examination HEENT: Oral mucosa moist no pharyngeal erythema Neck: Supple no JVD Chest: Clear to auscultation no crackles rales or wheezes Heart: Regular rate and rhythm S1-S2 heard no S3-S4 Abdomen: Soft nontender no renal bruit no CVA tenderness no suprapubic fullness Extremity: Mild edema dry skin no peripheral cyanosis pulses palpable Neurological: Alert awake Musculoskeletal: No joint effusion noted Assessment and plan; known history of chronic kidney disease, Patient has multiple risk factor for progression of renal failure over time however Underlying cardiomyopathy ejection fraction in the range of 40% perfusion scan did not show any evidence of ischemia in November Proteinuria will need assessment, high risk for radiocontrast nephropathy with proteinuria Gentle diuresis as tolerated with close monitoring of renal function Risk of radiocontrast nephropathy has been well explained to the patient We'll continue to follow and make recommendation from renal standpoint long-term renal prognosis guarded to poor Labs were discussed with patient explained and simple Lao does have good understanding off renal related issues, Will continue to follow and make recommendation from renal standpoint Objective - Vital Signs Vital signs: Vital Signs - 12hr 02/01/17 02/02/17 02/02/17 23:59 00:00 05:17 Temperature 98.1 F 97.9 F Pulse Rate 85 80 92 H Respiratory 18 18 Rate Blood Pressure 144/90 145/89 Blood Pressure [Left] O2 Sat by Pulse 99 100 Oximetry 02/02/17 09:01 Temperature 98.5 F Pulse Rate 96 H Respiratory 20 Rate Blood Pressure Blood Pressure 143/85 [Left] O2 Sat by Pulse 98 Oximetry - Lab 02/02/17 05:30 02/02/17 05:30 Most recent lab results Calcium 8.1 mg/dL (8.4-10.2) L 02/02/17 05:30
[2017-02-02] MEDS: HEPARIN SUB-Q SCH ×2 (10:01→22:36)
[2017-02-02] MEDS ORDERED: HEPARIN 10,000 UNITS/10 ML ONE (13:03)
[2017-02-02] MEDS ORDERED: HEPARIN/NS 5000 UNIT/500ML(CATH LAB) 1,500 ML IR ONE (13:03)
[2017-02-02] MEDS ORDERED: VERSED ONE (13:03)
[2017-02-02] MEDS ORDERED: SUBLIMAZE ONE (13:04)
[2017-02-02] MEDS ORDERED: NITROGLYCERIN SYRINGE 0 ML ONE (13:04)
[2017-02-02] MEDS ORDERED: XYLOCAINE 2% INFILTRATI ONE (13:04)
[2017-02-02] MEDS ORDERED: HEPARIN/NS 5000 UNIT/500ML(CATH LAB) 500 ML IR ONE (13:48)
--- NOTE | 2017-02-02 14:26 | Progress Note ---
Assessment and Plan Assessment and plan: 61-year-old -[place] male was admitted after he was present for shortness of breath Acute systolic CHF - Ejection fraction was 40-45% - MPI was negative on 12/09, patient will have right and left heart cath today - Patient is on Lasix, metoprolol - Cardiology following Acute on Chronic kidney disease - Creatinine is 3.2 today - I decreased the dose of Lasix from twice a day to once a day, follow BMP - Nephrology following Hypertension - On amlodipine Diabetes mellitus type 2 - On basal and insulin sliding scale insulin Peripheral vascular disease - Continue Plavix Gout - Patient uric acid is elevated - He is started on by mouth prednisone, no NSAIDs because of his kidney function DVT prophylaxis - Heparin Disposition -he'll have cardiac cath today and will decide after the result. History Interval history: Patient was seen and evaluated this morning, no shortness of breath, patient is complaining left big toe joint pain. Hospitalist Physical - Physical exam Narrative exam: Not in cardiopulmonary distress. The patient appeared well nourished and normally developed. Vital signs as documented. Head exam is unremarkable. No scleral icterus . Neck is without jugular venous distension, thyromegaly, or carotid bruits. Lungs are clear to auscultation. Cardiac exam reveals regular rate and Rhythm. First and second heart sounds normal. No murmurs, rubs or gallops. Abdominal exam reveals normal bowel sounds, no masses, no organomegaly and no aortic enlargement. Extremities are nonedematous and both femoral and pedal pulses are normal. Tenderness on the left big toe. FRONT OFFICE MEDICAL ASSISTANT: Alert and oriented 3. No focal weakness. - Constitutional Vitals: Temp Pulse Resp BP Pulse Ox 98.1 F 86 20 140/87 98 02/02/17 12:19 02/02/17 12:19 02/02/17 12:19 02/02/17 12:19 02/02/17 12:19 General appearance: Present: no acute distress Results - Labs CBC & Chem 7: 02/02/17 05:30 02/02/17 05:30 Labs: Laboratory Last Values WBC 5.0 K/mm3 (4.5-11.0) 02/02/17 05:30 RBC 4.83 M/mm3 (3.65-5.03) 02/02/17 05:30 Hgb 12.5 gm/dl (11.8-15.2) 02/02/17 05:30 Hct 39.4 % (35.5-45.6) 02/02/17 05:30 MCV 82 fl (84-94) L 02/02/17 05:30 MCH 26 pg (28-32) L 02/02/17 05:30 MCHC 32 % (32-34) 02/02/17 05:30 RDW 17.0 % (13.2-15.2) H 02/02/17 05:30 Plt Count 201 K/mm3 (140-440) 02/02/17 05:30 Lymph % (Auto) 21.7 % (13.4-35.0) 01/27/17 18:12 [place] % (Auto) 9.1 % (0.0-7.3) H 01/27/17 18:12 Eos % (Auto) 0.9 % (0.0-4.3) 01/27/17 18:12 Baso % (Auto) 1.1 % (0.0-1.8) 01/27/17 18:12 Lymph # 1.3 K/mm3 (1.2-5.4) 01/27/17 18:12 Banks # 0.5 K/mm3 (0.0-0.8) 01/27/17 18:12 Eos # 0.1 K/mm3 (0.0-0.4) 01/27/17 18:12 Baso # 0.1 K/mm3 (0.0-0.1) 01/27/17 18:12 Seg Neutrophils % 67.2 % (40.0-70.0) 01/27/17 18:12 Seg Neutrophils # 3.9 K/mm3 (1.8-7.7) 01/27/17 18:12 PT 13.6 Sec. (12.2-14.9) 02/02/17 05:30 INR 0.99 (0.87-1.13) 02/02/17 05:30 APTT 32.9 Sec. (24.2-36.6) 02/02/17 05:30 D-Dimer 390.66 ng/mlDDU (0-234) H 01/27/17 18:12 POC ABG pH 7.392 (7.35-7.45) 01/29/17 10:51 POC ABG pCO2 43.9 (35-45) 01/29/17 10:51 POC ABG pO2 76 (80-105) L 01/29/17 10:51 POC ABG HCO3 26.7 01/29/17 10:51 POC ABG Total CO2 28 01/29/17 10:51 POC ABG O2 Sat 95 01/29/17 10:51 POC ABG Base Excess 2 01/29/17 10:51 FiO2 21 % 01/29/17 10:51 Sodium 138 mmol/L (137-145) 02/02/17 05:30 Potassium 4.9 mmol/L (3.6-5.0) 02/02/17 05:30 Chloride 99.0 mmol/L (98-107) 02/02/17 05:30 Carbon Dioxide 27 mmol/L (22-30) 02/02/17 05:30 Anion Gap 17 mmol/L 02/02/17 05:30 BUN 48 mg/dL (9-20) H 02/02/17 05:30 Creatinine 3.2 mg/dL (0.8-1.5) H 02/02/17 05:30 Estimated GFR 24 ml/min 02/02/17 05:30 BUN/Creatinine Ratio 15 % 02/02/17 05:30 Glucose 158 mg/dL (75-100) H 02/02/17 05:30 POC Glucose 147 (70-105) H 02/02/17 07:06 Uric Acid 8.0 mg/dL (3.5-7.6) H 02/01/17 04:39 Calcium 8.1 mg/dL (8.4-10.2) L 02/02/17 05:30 Troponin T 0.063 ng/mL (0.00-0.029) H 01/27/17 23:50 NT-Pro-B Natriuret Pep 11063 pg/mL (0-900) H 01/27/17 18:12 Triglycerides 97 mg/dL (2-149) 01/27/17 18:12 Cholesterol 146 mg/dL (50-199) 01/27/17 18:12 LDL Cholesterol Direct 80 mg/dL (50-130) 01/27/17 18:12 HDL Cholesterol 47 mg/dL (40-59) 01/27/17 18:12 Cholesterol/HDL Ratio 3.10 % 01/27/17 18:12
--- NOTE | 2017-02-02 14:31 | Event Note ---
Date: 02/02/17 R/L heart cath completed, no complications. Findings: 1. Moderate pulm HTN. PASP 55. 2. Non-obstructive disease of mid LAD. 3. Severe disease of the diagonal branch-for medical therapy. 4. EF 35-40%. Recommend medical therapy and RF modification.
[2017-02-02] MEDS ORDERED: NACL 0.9% 1000 ML 1,000 ML IV SCH (15:00)
--- NOTE | 2017-02-02 15:46 | Cardiac Catherization Report ---
REASON FOR PROCEDURE: A 61-year-old man with a history of recurrent congestive heart failure. He was recommended for right and left heart catheterization in preparation for the cardiac catheterization, we noted that the patient has chronic kidney disease with a baseline creatinine of 3.0. Risks, benefits of contrast nephropathy were discussed with the patient and his patient access was consulted on the case as a prelude to a cardiac catheterization. The patient is fully aware of the risks and is willing to proceed. PROCEDURE: 1. Right heart catheterization. 2. Left heart catheterization. 3. Left ventricular angiography. 4. Selective left and right coronary angiography. The patient was prepped and draped in a sterile fashion after informed consent. Right femoral artery and vein were entered using the Seldinger technique. A 6-Eritrean sheath was placed in the artery and then an 8 Eritrean sheath in the vein. A swan [place]-Margo catheter was then advanced to the pulmonary artery position. A pigtail catheter was advanced into the left ventricle. Simultaneous left and right heart filling pressures were recorded. Cardiac output was measured using the thermodilution method. The [place]-M[place] catheter was then withdrawn, and right heart pressures were recorded on pullback. Left ventricle angiography was then performed with a hand injection using minimal amount of contrast. Following this, the pigtail was then withdrawn across the aortic valve, and transaortic valve gradient was recorded. Finally, selective left and right coronary angiography was performed using #4 left and right Bret catheters. The catheters and the sheaths were removed, hemostasis achieved using manual compression. The patient was returned to the post-procedure unit in stable condition. There were no complications. FINDINGS: HEMODYNAMICS: Mean right atrial pressure was 15-18. Right ventricular pressure was 55/20. Pulmonary artery pressure was 55/30. The mean pulmonary artery wedge pressure was 25-30. Left ventricular end-diastolic pressure was 30. Cardiac output was 4.3 L per minute. Ascending aortic pressure was 144/69. There was no significant pressure gradient on pullback across the aortic valve. CORONARY ANGIOGRAPHY: There was moderate diffuse coronary calcification, chiefly involving the proximal and mid segments of the LAD. The left main coronary artery was free of significant disease. The left anterior descending artery contained a long, 30% to 50% stenosis of its mid segment. This lesion was nonobstructive, but associated with heavy calcification of the vessel within this segment. We also noted an ostial, 90% stenosis of a medium sized diagonal branch, which originated from the diseased mid segment of the LAD. The circumflex artery contained diffuse mild atherosclerosis of its proximal, mid, and distal segments and obtuse marginal branches. The right coronary artery was dominant. This vessel contained mild luminal irregularities of its mid segment. There was moderate left ventricular systolic dysfunction, ejection fraction estimated at 35% to 40%. CONCLUSION: 1. Moderate to severe elevation of right and left heart filling pressures, moderate pulmonary hypertension. 2. Coronary artery disease as above, with moderate diffuse disease of the mid LAD, and severe ostial disease of a medium sized diagonal branch. 3. Moderate left ventricular systolic dysfunction, ejection fraction 35% to 40%. 4. Total contrast used was 25 mL of Visipaque. RECOMMENDATION: 1. Aggressive risk factor modification for nonobstructive LAD disease. 2. The ostial disease of the diagonal branch will be recommended for medical therapy in the absence of angina pectoris. 3. Medical therapy for moderate severity, nonischemic cardiomyopathy. 4. For the evaluation of pulmonary hypertension, I recommend Pulmonary Medicine assessment. JOB# [id number] CA/NTS
[2017-02-02] MEDS: K-DUR PO SCH (16:02)
[2017-02-02] MEDS: PLAVIX PO SCH (16:02)
[2017-02-02] MEDS: NORVASC PO SCH (16:14)
[2017-02-02] MEDS: LOPRESSOR PO SCH ×2 (16:14→22:35)
[2017-02-02] MEDS: COZAAR PO SCH (16:14)
[2017-02-02] MEDS: DELTASONE PO SCH (16:35)
--- NOTE | 2017-02-02 21:00 | Progress Note ---
Assessment and Plan - Patient Problems (1) Pleural effusion Current Visit: Yes Status: Acute Plan to address problem: Considering thoracentesis. Continue supplemental O2. (2) Congestive heart failure Current Visit: Yes Status: Acute Plan to address problem: Management as per cardiology. (3) SANAM (acute kidney injury) Current Visit: No Status: Acute Plan to address problem: Management as per nephrology. (4) Malignant essential hypertension Current Visit: No Status: Acute Plan to address problem: Management as per primary care. (5) Diabetes Current Visit: No Status: Chronic Plan to address problem: Management as per primary care. Subjective Date of service: 02/02/17 Principal diagnosis: Acute Hypoxemic Resp Failure; Acute CHF exacerbation; R pleural effusion Interval history: No complaint of chest pain or shortness of breath.O2 saturation 95% on 2 litres O2.Patient undergone cardiac catheterization today. Objective - Exam Narrative Exam: Not in cardiopulmonary distress. The patient appeared well nourished and normally developed. Vital signs as documented. Head exam is unremarkable. No scleral icterus . Neck is without jugular venous distension, thyromegaly, or carotid bruits. Lungs are clear to auscultation. Cardiac exam reveals regular rate and Rhythm. First and second heart sounds normal. No murmurs, rubs or gallops. Abdominal exam reveals normal bowel sounds, no masses, no organomegaly and no aortic enlargement. Extremities are nonedematous and both femoral and pedal pulses are normal. Tenderness on the left big toe. 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 No focal weakness. Vital Signs - 12hr 02/02/17 02/02/17 02/02/17 09:01 09:55 12:19 Temperature 98.5 F 98.1 F Pulse Rate 96 H 86 Pulse Rate [ 77 Apical] Respiratory 20 20 Rate Blood Pressure Blood Pressure 143/85 140/87 [Left] O2 Sat by Pulse 98 97 98 Oximetry 02/02/17 02/02/17 16:14 17:00 Temperature 97.9 F Pulse Rate 94 H 94 H Pulse Rate [ Apical] Respiratory 20 Rate Blood Pressure 144/87 Blood Pressure 144/87 [Left] O2 Sat by Pulse 95 Oximetry Constitutional: no acute distress, alert Eyes: non-icteric ENT: oropharynx moist, other (no thyromegaly) Neck: supple, no lymphadenopathy, no JVD Effort: mildly labored Ascultation: Bilateral: diminished breath sounds Percussion: Right: dull (base) Cardiovascular: regular rate and rhythm, other (no rubs/murmurs) Gastrointestinal: normoactive bowel sounds, soft, non-tender, non-distended, other (No HSM) Integumentary: normal Extremities: no cyanosis, pulses normal, no ischemia or petechiae, edema Neurologic: normal mental status, non-focal exam, pupils equal and round, motor strength normal and, other (moves all 4 extremities) Psychiatric: mood appropriate, affect normal CBC and BMP: 02/02/17 05:30 02/02/17 05:30 ABG, PT/INR, D-dimer: ABG POC ABG pH 7.392 (7.35-7.45) 01/29/17 10:51 POC ABG pCO2 43.9 (35-45) 01/29/17 10:51 POC ABG pO2 76 (80-105) L 01/29/17 10:51 POC ABG HCO3 26.7 01/29/17 10:51 POC ABG Total CO2 28 01/29/17 10:51 POC ABG O2 Sat 95 01/29/17 10:51 PT/INR, D-dimer PT 13.6 Sec. (12.2-14.9) 02/02/17 05:30 INR 0.99 (0.87-1.13) 02/02/17 05:30 D-Dimer 390.66 ng/mlDDU (0-234) H 01/27/17 18:12 Abnormal lab findings: Abnormal Labs 01/27/17 01/27/17 01/27/17 18:12 18:12 18:12 RBC 5.13 H MCV 83 L MCH 25 L MCHC 31 L RDW 17.5 H [place] % (Auto) 9.1 H D-Dimer 390.66 H POC ABG pO2 BUN 29 H Creatinine 3.1 H Glucose 155 H POC Glucose Uric Acid Calcium 8.0 L Troponin T 0.076 H NT-Pro-B Natriuret Pep 24199 H 01/27/17 01/28/17 01/28/17 23:50 11:05 16:53 RBC MCV MCH MCHC RDW [place] % (Auto) D-Dimer POC ABG pO2 BUN Creatinine Glucose POC Glucose 304 H 57 L Uric Acid Calcium Troponin T 0.063 H NT-Pro-B Natriuret Pep 01/28/17 01/29/17 01/29/17 19:52 07:55 10:51 RBC MCV MCH MCHC RDW [place] % (Auto) D-Dimer POC ABG pO2 76 L BUN Creatinine Glucose POC Glucose 161 H 146 H Uric Acid Calcium Troponin T NT-Pro-B Natriuret Pep 01/29/17 01/29/17 01/29/17 11:53 16:07 20:28 RBC MCV MCH MCHC RDW [place] % (Auto) D-Dimer POC ABG pO2 BUN Creatinine Glucose POC Glucose 272 H 157 H 170 H Uric Acid Calcium Troponin T NT-Pro-B Natriuret Pep 01/30/17 01/30/17 01/30/17 08:40 11:53 20:39 RBC MCV MCH MCHC RDW [place] % (Auto) D-Dimer POC ABG pO2 BUN Creatinine Glucose POC Glucose 169 H 237 H 205 H Uric Acid Calcium Troponin T NT-Pro-B Natriuret Pep 01/31/17 01/31/17 01/31/17 07:34 10:03 12:04 RBC MCV MCH MCHC RDW [place] % (Auto) D-Dimer POC ABG pO2 BUN 44 H Creatinine 3.4 H Glucose 119 H POC Glucose 168 H 139 H Uric Acid Calcium 7.9 L Troponin T NT-Pro-B Natriuret Pep 01/31/17 01/31/17 02/01/17 15:44 21:57 03:25 RBC MCV MCH MCHC RDW [place] % (Auto) D-Dimer POC ABG pO2 BUN Creatinine Glucose POC Glucose 212 H 219 H 188 H Uric Acid Calcium Troponin T NT-Pro-B Natriuret Pep 02/01/17 02/01/17 02/01/17 04:39 04:39 11:03 RBC MCV MCH MCHC RDW [place] % (Auto) D-Dimer POC ABG pO2 BUN 47 H Creatinine 3.3 H Glucose 174 H POC Glucose 144 H Uric Acid 8.0 H Calcium 7.7 L Troponin T NT-Pro-B Natriuret Pep 02/01/17 02/01/17 02/01/17 14:35 18:47 19:50 RBC MCV MCH MCHC RDW [place] % (Auto) D-Dimer POC ABG pO2 BUN Creatinine Glucose POC Glucose 52 L 238 H 251 H Uric Acid Calcium Troponin T NT-Pro-B Natriuret Pep 02/02/17 02/02/17 02/02/17 05:22 05:30 05:30 RBC MCV 82 L MCH 26 L MCHC RDW 17.0 H [place] % (Auto) D-Dimer POC ABG pO2 BUN 48 H Creatinine 3.2 H Glucose 158 H POC Glucose 164 H Uric Acid Calcium 8.1 L Troponin T NT-Pro-B Natriuret Pep 02/02/17 02/02/17 07:06 16:34 RBC MCV MCH MCHC RDW [place] % (Auto) D-Dimer POC ABG pO2 BUN Creatinine Glucose POC Glucose 147 H 177 H Uric Acid Calcium Troponin T NT-Pro-B Natriuret Pep
[2017-02-02] MEDS: LEVEMIR SUB-Q SCH (22:38)
[2017-02-03 06:26] LABS: Calcium 8.5 mg/dL (8.4-10.2); Chloride 93.3 mmol/L (98-107)
[2017-02-03] MEDS: LASIX IV SCH (06:31)
[2017-02-03] MEDS ORDERED: KIONEX PR NR (08:00)
[2017-02-03] MEDS: NOVOLOG SUB-Q SCH ×7 (08:50→22:31)
[2017-02-03] MEDS ORDERED: KIONEX PO ONE ×2 (09:00→16:35)
[2017-02-03] MEDS ORDERED: CALCIUM CHLORIDE IVP ONE (09:46)
[2017-02-03] MEDS ORDERED: KIONEX PO NR (10:00)
[2017-02-03] MEDS: HEPARIN SUB-Q SCH ×2 (10:17→22:29)
[2017-02-03] MEDS: DELTASONE PO SCH (10:18)
[2017-02-03] MEDS: NORVASC PO SCH (10:18)
[2017-02-03] MEDS: LOPRESSOR PO SCH ×2 (10:18→22:28)
[2017-02-03] MEDS ORDERED: CALCIUM CHLORIDE 1,000 MG in NACL 0.9% 100 ML IV ONE ×2 (10:30→15:46)
[2017-02-03 10:46] LABS: Calcium 8.6 mg/dL (8.4-10.2); Chloride 96.1 mmol/L (98-107)
[2017-02-03 10:59] LABS: Potassium 6.3 mmol/L (3.6-5.0)
--- NOTE | 2017-02-03 13:06 | Progress Note ---
Assessment and Plan Acute systolic heart failure low probability for PE on V/Q scan EF 40-45% on echo 11/2016 normal perfusion MPI 11/2016 R/L heart cath findings: 1. Moderate pulm HTN. PASP 55. 2. Non-obstructive disease of mid LAD. 3. Severe disease of the diagonal branch-for medical therapy. 4. EF 35-40%. Chronic renal disease Hypertension Diabetes PVD on plavix therapy Recommend Medical therapy recommended for small vessel branch disease and systolic heart failure Advised low sodium diet and fluid restriction. Subjective Date of service: 02/03/17 Principal diagnosis: Acute Hypoxemic Resp Failure; Acute CHF exacerbation; R pleural effusion Interval history: Patient has no complaints. Noted hyperkalemia and hyponatremia on labs this morning. Creatinine of 3.2. Objective Vital Signs Temp Pulse Pulse Resp BP BP Pulse Ox 02/03/17 11:33 98.4 F 18 02/03/17 11:32 92 H 149/90 98 02/03/17 10:18 90 150/96 02/03/17 10:00 90 18 99 02/03/17 08:38 98.3 F 90 18 150/96 99 02/03/17 08:00 87 02/03/17 05:24 98.4 F 87 20 142/88 97 02/03/17 01:01 98.6 F 84 18 136/79 99 02/02/17 22:35 99 H 126/83 02/02/17 22:17 98.2 F 94 H 17 133/78 100 02/02/17 22:15 98.2 F 94 H 17 133/78 100 02/02/17 22:14 98.2 F 93 H 17 133/78 99 02/02/17 22:10 98.2 F 93 H 18 132/72 97 02/02/17 22:08 98.2 F 91 H 17 130/74 98 02/02/17 19:41 97.8 F 93 H 20 126/83 98 02/02/17 17:00 97.9 F 94 H 20 144/87 95 02/02/17 16:14 94 H 144/87 02/02/17 16:10 97.9 F 94 H 20 144/87 98 - Physical Examination General: No Apparent Distress HEENT: Positive: PERRL Cardiac: Positive: Reg Rate and Rhythm Neuro: Positive: Grossly Intact Extremities: Present: +1 Edema - Labs and Meds Comprehensive Metabolic Panel 02/03/17 02/03/17 02/03/17 Range/Units 05:04 07:29 10:09 Sodium 129 L D 135 L (137-145) mmol/L Potassium 7.0 H* D 6.2 H* 6.3 H* (3.6-5.0) mmol/L Chloride 93.3 L 96.1 L (98-107) mmol/L Carbon Dioxide 25 24 (22-30) mmol/L BUN 56 H 55 H (9-20) mg/dL Creatinine 3.2 H 3.2 H (0.8-1.5) mg/dL Glucose 313 H 249 H (75-100) mg/dL Calcium 8.5 8.6 (8.4-10.2) mg/dL
--- NOTE | 2017-02-03 14:50 | Progress Note ---
Assessment and Plan No complaint of chest pain or shortness of breath.O2 saturation 100% on 2 litres O2.Patient undergone cardiac catheterization yesterday. Patient thoracentesis still pending. - Patient Problems (1) Pleural effusion Current Visit: Yes Status: Acute Plan to address problem: Considering thoracentesis. Continue supplemental O2. (2) Congestive heart failure Current Visit: Yes Status: Acute Plan to address problem: Management as per cardiology. (3) SANAM (acute kidney injury) Current Visit: No Status: Acute Plan to address problem: Management as per nephrology. (4) Malignant essential hypertension Current Visit: No Status: Acute Plan to address problem: Management as per primary care. (5) Diabetes Current Visit: No Status: Chronic Plan to address problem: Management as per primary care. Subjective Date of service: 02/03/17 Principal diagnosis: Acute Hypoxemic Resp Failure; Acute CHF exacerbation; R pleural effusion Interval history: No complaint of chest pain or shortness of breath.O2 saturation 100% on 2 litres O2.Patient undergone cardiac catheterization yesterday. Patient thoracentesis still pending. Objective Vital Signs - 12hr 02/03/17 02/03/17 02/03/17 05:24 08:00 08:38 Temperature 98.4 F 98.3 F Pulse Rate 87 87 90 Pulse Rate [ From Monitor] Respiratory 20 18 Rate Blood Pressure 142/88 150/96 O2 Sat by Pulse 97 99 Oximetry 02/03/17 02/03/17 02/03/17 10:00 10:18 11:32 Temperature Pulse Rate 90 92 H Pulse Rate [ 90 From Monitor] Respiratory 18 Rate Blood Pressure 150/96 149/90 O2 Sat by Pulse 99 98 Oximetry 02/03/17 11:33 Temperature 98.4 F Pulse Rate Pulse Rate [ From Monitor] Respiratory 18 Rate Blood Pressure O2 Sat by Pulse Oximetry Constitutional: no acute distress, alert Eyes: non-icteric ENT: oropharynx moist, other (no thyromegaly) Neck: supple, no lymphadenopathy, no JVD Effort: mildly labored Ascultation: Bilateral: diminished breath sounds Percussion: Right: dull (base) Cardiovascular: regular rate and rhythm, other (no rubs/murmurs) Gastrointestinal: normoactive bowel sounds, soft, non-tender, non-distended, other (No HSM) Integumentary: normal Extremities: no cyanosis, pulses normal, no ischemia or petechiae, edema Neurologic: normal mental status, non-focal exam, pupils equal and round, motor strength normal and, other (moves all 4 extremities) Psychiatric: mood appropriate, affect normal CBC and BMP: 02/02/17 05:30 02/03/17 17:12 ABG, PT/INR, D-dimer: ABG POC ABG pH 7.392 (7.35-7.45) 01/29/17 10:51 POC ABG pCO2 43.9 (35-45) 01/29/17 10:51 POC ABG pO2 76 (80-105) L 01/29/17 10:51 POC ABG HCO3 26.7 01/29/17 10:51 POC ABG Total CO2 28 01/29/17 10:51 POC ABG O2 Sat 95 01/29/17 10:51 PT/INR, D-dimer PT 13.6 Sec. (12.2-14.9) 02/02/17 05:30 INR 0.99 (0.87-1.13) 02/02/17 05:30 D-Dimer 390.66 ng/mlDDU (0-234) H 01/27/17 18:12 Abnormal lab findings: Abnormal Labs 01/27/17 01/27/17 01/27/17 18:12 18:12 18:12 RBC 5.13 H MCV 83 L MCH 25 L MCHC 31 L RDW 17.5 H [place] % (Auto) 9.1 H D-Dimer 390.66 H POC ABG pO2 Sodium Potassium Chloride BUN 29 H Creatinine 3.1 H Glucose 155 H POC Glucose Uric Acid Calcium 8.0 L Troponin T 0.076 H NT-Pro-B Natriuret Pep 43081 H 01/27/17 01/28/17 01/28/17 23:50 11:05 16:53 RBC MCV MCH MCHC RDW [place] % (Auto) D-Dimer POC ABG pO2 Sodium Potassium Chloride BUN Creatinine Glucose POC Glucose 304 H 57 L Uric Acid Calcium Troponin T 0.063 H NT-Pro-B Natriuret Pep 01/28/17 01/29/17 01/29/17 19:52 07:55 10:51 RBC MCV MCH MCHC RDW [place] % (Auto) D-Dimer POC ABG pO2 76 L Sodium Potassium Chloride BUN Creatinine Glucose POC Glucose 161 H 146 H Uric Acid Calcium Troponin T NT-Pro-B Natriuret Pep 01/29/17 01/29/17 01/29/17 11:53 16:07 20:28 RBC MCV MCH MCHC RDW [place] % (Auto) D-Dimer POC ABG pO2 Sodium Potassium Chloride BUN Creatinine Glucose POC Glucose 272 H 157 H 170 H Uric Acid Calcium Troponin T NT-Pro-B Natriuret Pep 01/30/17 01/30/17 01/30/17 08:40 11:53 20:39 RBC MCV MCH MCHC RDW [place] % (Auto) D-Dimer POC ABG pO2 Sodium Potassium Chloride BUN Creatinine Glucose POC Glucose 169 H 237 H 205 H Uric Acid Calcium Troponin T NT-Pro-B Natriuret Pep 01/31/17 01/31/17 01/31/17 07:34 10:03 12:04 RBC MCV MCH MCHC RDW [place] % (Auto) D-Dimer POC ABG pO2 Sodium Potassium Chloride BUN 44 H Creatinine 3.4 H Glucose 119 H POC Glucose 168 H 139 H Uric Acid Calcium 7.9 L Troponin T NT-Pro-B Natriuret Pep 01/31/17 01/31/17 02/01/17 15:44 21:57 03:25 RBC MCV MCH MCHC RDW [place] % (Auto) D-Dimer POC ABG pO2 Sodium Potassium Chloride BUN Creatinine Glucose POC Glucose 212 H 219 H 188 H Uric Acid Calcium Troponin T NT-Pro-B Natriuret Pep 02/01/17 02/01/17 02/01/17 04:39 04:39 11:03 RBC MCV MCH MCHC RDW [place] % (Auto) D-Dimer POC ABG pO2 Sodium Potassium Chloride BUN 47 H Creatinine 3.3 H Glucose 174 H POC Glucose 144 H Uric Acid 8.0 H Calcium 7.7 L Troponin T NT-Pro-B Natriuret Pep 02/01/17 02/01/17 02/01/17 14:35 18:47 19:50 RBC MCV MCH MCHC RDW [place] % (Auto) D-Dimer POC ABG pO2 Sodium Potassium Chloride BUN Creatinine Glucose POC Glucose 52 L 238 H 251 H Uric Acid Calcium Troponin T NT-Pro-B Natriuret Pep 02/02/17 02/02/17 02/02/17 05:22 05:30 05:30 RBC MCV 82 L MCH 26 L MCHC RDW 17.0 H [place] % (Auto) D-Dimer POC ABG pO2 Sodium Potassium Chloride BUN 48 H Creatinine 3.2 H Glucose 158 H POC Glucose 164 H Uric Acid Calcium 8.1 L Troponin T NT-Pro-B Natriuret Pep 02/02/17 02/02/17 02/02/17 07:06 10:48 16:34 RBC MCV MCH MCHC RDW [place] % (Auto) D-Dimer POC ABG pO2 Sodium Potassium Chloride BUN Creatinine Glucose POC Glucose 147 H 168 H 177 H Uric Acid Calcium Troponin T NT-Pro-B Natriuret Pep 02/02/17 02/03/17 02/03/17 21:40 05:04 07:29 RBC MCV MCH MCHC RDW [place] % (Auto) D-Dimer POC ABG pO2 Sodium 129 L D Potassium 7.0 H* D 6.2 H* Chloride 93.3 L BUN 56 H Creatinine 3.2 H Glucose 313 H POC Glucose 192 H Uric Acid Calcium Troponin T NT-Pro-B Natriuret Pep 02/03/17 02/03/17 02/03/17 08:44 10:09 10:59 RBC MCV MCH MCHC RDW [place] % (Auto) D-Dimer POC ABG pO2 Sodium 135 L Potassium 6.3 H* Chloride 96.1 L BUN 55 H Creatinine 3.2 H Glucose 249 H POC Glucose 267 H 241 H Uric Acid Calcium Troponin T NT-Pro-B Natriuret Pep
--- NOTE | 2017-02-03 15:11 | Progress Note ---
Assessment and Plan Assessment and plan: 61-year-old -[place] male was admitted after he was present for shortness of breath Acute systolic CHF - Ejection fraction was 40-45% - MPI was negative on 12/09, cardiac cath was done and clean coronaries - Patient is on Lasix, metoprolol - Cardiology following Acute on Chronic kidney disease - Creatinine is 3.1 today - Nephrology following Hypokalemia - Patient was given Kayexalate - Could be a combination of contrast and ARB, database discontinued Hypertension - On amlodipine Diabetes mellitus type 2 - On basal and insulin sliding scale insulin Peripheral vascular disease - Continue Plavix Gout - Patient uric acid is elevated - He is started on by mouth prednisone, no NSAIDs because of his kidney function DVT prophylaxis - Heparin Disposition -Continue inpatient care. History Interval history: Patient was seen and evaluated this morning, no shortness of breath, patient is complaining left big toe joint pain. Hospitalist Physical - Physical exam Narrative exam: Not in cardiopulmonary distress. The patient appeared well nourished and normally developed. Vital signs as documented. Head exam is unremarkable. No scleral icterus . Neck is without jugular venous distension, thyromegaly, or carotid bruits. Lungs are clear to auscultation. Cardiac exam reveals regular rate and Rhythm. First and second heart sounds normal. No murmurs, rubs or gallops. Abdominal exam reveals normal bowel sounds, no masses, no organomegaly and no aortic enlargement. Extremities are nonedematous and both femoral and pedal pulses are normal. Tenderness on the left big toe. 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 No focal weakness. - Constitutional Vitals: Temp Pulse Resp BP Pulse Ox 98.4 F 92 H 18 149/90 98 02/03/17 11:33 02/03/17 11:32 02/03/17 11:33 02/03/17 11:32 02/03/17 11:32 General appearance: Present: no acute distress Results - Labs CBC & Chem 7: 02/02/17 05:30 02/03/17 10:09 Labs: Laboratory Last Values WBC 5.0 K/mm3 (4.5-11.0) 02/02/17 05:30 RBC 4.83 M/mm3 (3.65-5.03) 02/02/17 05:30 Hgb 12.5 gm/dl (11.8-15.2) 02/02/17 05:30 Hct 39.4 % (35.5-45.6) 02/02/17 05:30 MCV 82 fl (84-94) L 02/02/17 05:30 MCH 26 pg (28-32) L 02/02/17 05:30 MCHC 32 % (32-34) 02/02/17 05:30 RDW 17.0 % (13.2-15.2) H 02/02/17 05:30 Plt Count 201 K/mm3 (140-440) 02/02/17 05:30 Lymph % (Auto) 21.7 % (13.4-35.0) 01/27/17 18:12 [place] % (Auto) 9.1 % (0.0-7.3) H 01/27/17 18:12 E[place] % (Auto) 0.9 % (0.0-4.3) 01/27/17 18:12 Baso % (Auto) 1.1 % (0.0-1.8) 01/27/17 18:12 Lymph # 1.3 K/mm3 (1.2-5.4) 01/27/17 18:12 [place] # 0.5 K/mm3 (0.0-0.8) 01/27/17 18:12 Eos # 0.1 K/mm3 (0.0-0.4) 01/27/17 18:12 Baso # 0.1 K/mm3 (0.0-0.1) 01/27/17 18:12 Seg Neutrophils % 67.2 % (40.0-70.0) 01/27/17 18:12 Seg Neutrophils # 3.9 K/mm3 (1.8-7.7) 01/27/17 18:12 PT 13.6 Sec. (12.2-14.9) 02/02/17 05:30 INR 0.99 (0.87-1.13) 02/02/17 05:30 APTT 32.9 Sec. (24.2-36.6) 02/02/17 05:30 D-Dimer 390.66 ng/mlDDU (0-234) H 01/27/17 18:12 POC ABG pH 7.392 (7.35-7.45) 01/29/17 10:51 POC ABG pCO2 43.9 (35-45) 01/29/17 10:51 POC ABG pO2 76 (80-105) L 01/29/17 10:51 POC ABG HCO3 26.7 01/29/17 10:51 POC ABG Total CO2 28 01/29/17 10:51 POC ABG O2 Sat 95 01/29/17 10:51 POC ABG Base Excess 2 01/29/17 10:51 FiO2 21 % 01/29/17 10:51 Sodium 135 mmol/L (137-145) L 02/03/17 10:09 Potassium 6.3 mmol/L (3.6-5.0) H* 02/03/17 10:09 Chloride 96.1 mmol/L (98-107) L 02/03/17 10:09 Carbon Dioxide 24 mmol/L (22-30) 02/03/17 10:09 Anion Gap 21 mmol/L 02/03/17 10:09 BUN 55 mg/dL (9-20) H 02/03/17 10:09 Creatinine 3.2 mg/dL (0.8-1.5) H 02/03/17 10:09 Estimated GFR 24 ml/min 02/03/17 10:09 BUN/Creatinine Ratio 17 % 02/03/17 10:09 Glucose 249 mg/dL (75-100) H 02/03/17 10:09 POC Glucose 241 (70-105) H 02/03/17 10:59 Uric Acid 8.0 mg/dL (3.5-7.6) H 02/01/17 04:39 Calcium 8.6 mg/dL (8.4-10.2) 02/03/17 10:09 Troponin T 0.063 ng/mL (0.00-0.029) H 01/27/17 23:50 NT-Pro-B Natriuret Pep 25253 pg/mL (0-900) H 01/27/17 18:12 Triglycerides 97 mg/dL (2-149) 01/27/17 18:12 Cholesterol 146 mg/dL (50-199) 01/27/17 18:12 LDL Cholesterol Direct 80 mg/dL (50-130) 01/27/17 18:12 HDL Cholesterol 47 mg/dL (40-59) 01/27/17 18:12 Cholesterol/HDL Ratio 3.10 % 01/27/17 18:12 Hyperkalemia
[2017-02-03] MEDS ORDERED: D50W (25GM) Syringe IV ONE (15:43)
[2017-02-03] MEDS ORDERED: PROVENTIL IH ONE (15:43)
--- NOTE | 2017-02-03 15:54 | Progress Note ---
Subjective Principal diagnosis: Acute Hypoxemic Resp Failure; Acute CHF exacerbation; R pleural effusion Interval history: Patient was seen today for follow-up, on many renal related issues patient's renal function is markedly worsen he is also noted to be hyperkalemic Patient is upset about his worsening renal function as well as hyperkalemia Interdisciplinary notes were reviewed Vitals labs intake and output medications were reviewed from today Allergies: Reviewed Social history: Reviewed Family history: Reviewed Physical examination HEENT: Oral mucosa moist no pharyngeal erythema Neck: Supple no JVD Chest: Clear to auscultation no crackles rales or wheezes Heart: Regular rate and rhythm S1-S2 heard no S3-S4 Abdomen: Soft nontender no renal bruit no CVA tenderness no suprapubic fullness Extremity: Mild edema dry skin no peripheral cyanosis pulses palpable Neurological: Alert awake Musculoskeletal: No joint effusion noted Assessment and plan; patient hasknown history of chronic kidney disease, counseling and education was done renal function appears to have deteriorated, renal prognosis remains guarded to poor as discussed earlier, Baseline creatinine has been around 3 since April of this year, patient has been educated about the staging of renal failure at length Hyperkalemia moderately severe patient will need to be treated medically if fails to respond we'll consider hemodialysis treatment to correct the issues with hyperkalemia Patient is status post-radiocontrast study for cardiac catheterization that was done findings noted Will follow-up serial potassium level treated hyperkalemia medically at this point including calcium insulin dextrose Kayexalate etc. Patient does have proteinuria with underlying cardiomyopathy and hence he is at much higher risk for radiocontrast nephropathy Patient was well educated about radiocontrast nephropathy and worsening of renal failure yesterday but he put tennis like he did not know any of this which is unfortunate I have asked him to allow me to discuss with his about his current health condition and the plan of care and he will have his call me when she is available to talk to us currently she is working Will need assessment of degree of proteinuria As far as hyperkalemia is concerned patient will not use losartan or potassium replacement, monitor potassium level closely When doing record and is planned to discharge he will need to see us in the office within a week Labs were discussed with patient explained and simple [place] does have good understanding off renal related issues, Will continue to follow and make recommendation from renal standpoint Objective - Vital Signs Vital signs: Vital Signs - 12hr 12/12/17 12/12/17 12/12/17 05:24 08:00 08:38 Temperature 98.4 F 98.3 F Pulse Rate 87 87 90 Pulse Rate [ From Monitor] Respiratory 20 18 Rate Blood Pressure 142/88 150/96 O2 Sat by Pulse 97 99 Oximetry 02/03/17 02/03/17 02/03/17 10:00 10:18 11:32 Temperature Pulse Rate 90 92 H Pulse Rate [ 90 From Monitor] Respiratory 18 Rate Blood Pressure 150/96 149/90 O2 Sat by Pulse 99 98 Oximetry 02/03/17 11:33 Temperature 98.4 F Pulse Rate Pulse Rate [ From Monitor] Respiratory 18 Rate Blood Pressure O2 Sat by Pulse Oximetry - Lab 02/02/17 05:30 02/03/17 15:18 Most recent lab results Calcium 8.6 mg/dL (8.4-10.2) 02/03/17 10:09
[2017-02-03 16:13] LABS: Calcium 8.7 mg/dL (8.4-10.2); Chloride 97.3 mmol/L (98-107); Potassium 5.3 mmol/L (3.6-5.0)
[2017-02-03] MEDS ORDERED: D50W (25GM) Vial IV ONE (17:00)
[2017-02-03 18:15] LABS: Calcium 8.7 mg/dL (8.4-10.2); Chloride 97.9 mmol/L (98-107); Potassium 5.7 mmol/L (3.6-5.0)
[2017-02-03] MEDS: LEVEMIR SUB-Q SCH (22:30)
[2017-02-04 06:02] LABS: Calcium 8.4 mg/dL (8.4-10.2); Chloride 97.3 mmol/L (98-107); Potassium 3.8 mmol/L (3.6-5.0)
[2017-02-04] MEDS: LASIX IV SCH (06:34)
[2017-02-04] MEDS: NOVOLOG SUB-Q SCH ×6 (08:58→22:00)
[2017-02-04] MEDS: DELTASONE PO SCH (09:01)
[2017-02-04] MEDS: LOPRESSOR PO SCH ×2 (09:02→21:58)
[2017-02-04] MEDS: NORVASC PO SCH (09:03)
--- NOTE | 2017-02-04 09:29 | Progress Note ---
Subjective Principal diagnosis: Acute Hypoxemic Resp Failure; Acute CHF exacerbation; R pleural effusion Interval history: Patient was seen today for follow-up on multiple renal related issues Events of 24 hours vitals labs intake output medications were reviewed Had a detailed discussion with patient's yesterday about patient's multiple renal related issues who has a good understanding Patient is a very poor historian and does not understand his health issues well despite education and counseling Interdisciplinary Notes were also reviewed Past medical history: Reviewed Social history: Reviewed Allergies: Reviewed Medication: Reviewed Labs: Reviewed Physical examination Gen.: No acute distress HEENT: Oral mucosa moist, mild pallor no icterus Neck: Supple no thyromegaly nodular mass or JVD Chest: Clear to auscultation anteriorly Heart: Regular rate and rhythm S1 and S2 heard Abdomen: Soft nontender no renal bruit no CVA tenderness no suprapubic fullness Extremity: Edema approximately 1+ dry skin no purpuric rash Dermatology: Dry skin no rash Neurological: Assessment and plan Chronic kidney disease: Patient needs monitoring of renal function, status post radiocontrast exposure strict intake and output monitoring and follow-up Avoid any type of CHAPIN inhibitor is angiotensin receptor qiana Will discontinue Lasix for now and follow Monitor renal function a daily basis high risk for radiocontrast patient has been made aware already Hyperkalemia: Currently responding to the present regimen doing well. This was moderately severe but responded well to the medical treatment Patient does have proteinuria with underlying cardiomyopathy and hence he is at much higher risk for radiocontrast nephropathy Patient was well educated about radiocontrast nephropathy and worsening of renal failure yesterday but he put tennis like he did not know any of this which is unfortunate has been thoroughly educated with patient's consent Will need assessment of degree of proteinuria explained him again about multiple renal related issues Objective - Vital Signs Vital signs: Vital Signs - 12hr 02/03/17 02/04/17 02/04/17 22:28 00:26 05:20 Temperature 97.7 F 98.4 F Pulse Rate 96 H 97 H 100 H Respiratory 18 17 Rate Blood Pressure 142/86 150/89 156/85 O2 Sat by Pulse 100 97 Oximetry 02/04/17 02/04/17 09:02 09:03 Temperature Pulse Rate 100 H 109 H Respiratory Rate Blood Pressure 156/86 156/86 O2 Sat by Pulse Oximetry - Lab 02/02/17 05:30 02/04/17 04:00 Most recent lab results Calcium 8.4 mg/dL (8.4-10.2) 02/04/17 04:00
--- NOTE | 2017-02-04 11:31 | Progress Note ---
Assessment and Plan Acute systolic heart failure low probability for PE on V/Q scan EF 40-45% on echo 11/2016 normal perfusion MPI 11/2016 R/L heart cath findings: 1. Moderate pulm HTN. PASP 55. 2. Non-obstructive disease of mid LAD. 3. Severe disease of the diagonal branch-for medical therapy. 4. EF 35-40%. Chronic renal disease Hypertension Diabetes PVD on plavix therapy Recommendations: Medical therapy recommended for small vessel branch disease and systolic heart failure Patient is scheduled for thoracentesis on thursday Advised low sodium diet and fluid restriction. Subjective Date of service: 02/04/17 Principal diagnosis: Acute Hypoxemic Resp Failure; Acute CHF exacerbation; R pleural effusion Interval history: Patient is doing well. He denies chest pain or shortness of breath Objective Vital Signs Temp Pulse Resp BP Pulse Ox 02/04/17 09:57 98 02/04/17 09:03 109 H 156/86 02/04/17 09:02 100 H 156/86 02/04/17 08:23 98.6 F 94 H 18 151/101 100 02/04/17 05:20 98.4 F 100 H 17 156/85 97 02/04/17 00:26 97.7 F 97 H 18 150/89 100 02/03/17 22:28 96 H 142/86 02/03/17 20:01 98.7 F 96 H 21 142/86 100 02/03/17 20:00 94 H 02/03/17 17:07 98.3 F 94 H 18 155/90 99 02/03/17 11:33 98.4 F 18 02/03/17 11:32 92 H 149/90 98 - Physical Examination General: No Apparent Distress HEENT: Positive: PERRL Neck: Positive: neck supple Cardiac: Positive: Reg Rate and Rhythm Lungs: Positive: Decreased Breath Sounds Neuro: Positive: Grossly Intact Abdomen: Positive: Soft, Active Bowel Sounds Extremities: Present: +1 Edema - Labs and Meds Comprehensive Metabolic Panel 02/03/17 02/03/17 02/04/17 Range/Units 15:18 17:12 04:00 Sodium 138 140 138 (137-145) mmol/L Potassium 5.3 H 5.7 H 3.8 D (3.6-5.0) mmol/L Chloride 97.3 L 97.9 L 97.3 L (98-107) mmol/L Carbon Dioxide 23 25 25 (22-30) mmol/L BUN 55 H 57 H 58 H (9-20) mg/dL Creatinine 3.5 H 3.6 H 3.4 H (0.8-1.5) mg/dL Glucose 283 H 273 H 197 H (75-100) mg/dL Calcium 8.7 8.7 8.4 (8.4-10.2) mg/dL
--- NOTE | 2017-02-04 13:58 | Progress Note ---
Assessment and Plan Assessment and plan: Patient is a 61-year-old man with history of hypertension, systolic heart failure, dyslipidemia, chronic kidney failure stage III, diabetes mellitus type 2 and peripheral artery disease on Plavix who presented with shortness of breath. Chest x-ray report is CHF, Persantine thallium stress test report as normal perfusion scan, transthoracic echocardiogram report is mildly decreased left ventricular systolic function 40-45%. On 02/02/17 R/L heart cath completed , no complications. Findings: 1. Moderate pulm HTN. PASP 55. 2. Non-obstructive disease of mid LAD. 3. Severe disease of the diagonal branch-for medical therapy. 4. EF 35-40%. Recommend medical therapy and RF modification per Dr. Vidal, Category Manager. Acute hypoxic respiratory failure, still on 2.5 liters of O2 weaning o2 trails daily Acute bilateral pulmonary pleural effusion thoracentesis on thursday due to use of plavix Acute systolic heart failure - Ejection fraction was 40-45% - MPI was negative on 12/09, cardiac cath was done and clean coronaries - Patient is on Lasix, metoprolol - Cardiology following - No kaylee inhibitor/arb due to renal failure Acute on Chronic kidney disease 3 - Nephrology following Hypokalemia - Patient was given Kayexalate - Could be a combination of contrast and ARB, database discontinued Hypertensive heart disease - On amlodipine and lopressor -no kaylee due to renal dysfunction Diabetes mellitus type 2 - On basal and insulin sliding scale insulin Peripheral vascular disease - plavix on hold for the thoracentesis Gout - Patient uric acid is elevated - He is started on by mouth prednisone, no NSAIDs because of his kidney function DVT prophylaxis - Heparin Disposition -Continue inpatient care. 02/04/17: Category Manager, Dr. Manriquez Recommendations: Medical therapy recommended for small vessel branch disease and systolic heart failure Patient is scheduled for thoracentesis on thursday Advised low sodium diet and fluid restriction. History Interval history: Patient was seen and examined. Follow-up on current diagnosis. Overnight uneventful. Patient denies any chest pain, nausea/vomiting or severe headaches. Imaging, nursing note, chart, labs and old chart reviewed. Discussed with patient. Shortness of breath is improved but he still on 2-1/2 L oxygen which is new for him. Hospitalist Physical - Physical exam Narrative exam: GEN: WDWN, NAD, AWAKE, ALERT, ORIENTATED 3 HEENT: NCAT, EOMI, PERRL, OP Clear NECK: supple, no adenopathy, no thyromegaly, + JVD CVS/HEART: Regular Tachycardia, NORMAL S1S2, NO JVD, pulses present bilaterally CHEST/LUNGS: CTA B, Symmetrical chest expansion, good air entry bilaterally GI/Abdomen: soft, NTND, good bowel sounds, no guarding or rebound /Bladder: no suprapubic tenderness, no CVA or paraspinal tenderness EXT/Skin: no c/c/e, no obvious rash MSK: FROM x 4 Neuro: CN 2-12 grossly intact, no new focal deficits Psych: calm - Constitutional Vitals: Temp Pulse Resp BP Pulse Ox 98.6 F 109 H 18 156/86 98 02/04/17 08:23 02/04/17 09:03 02/04/17 08:23 02/04/17 09:03 02/04/17 09:57 General appearance: Present: no acute distress Results - Labs CBC & Chem 7: 02/02/17 05:30 02/04/17 04:00 Labs: Laboratory Last Values WBC 5.0 K/mm3 (4.5-11.0) 02/02/17 05:30 RBC 4.83 M/mm3 (3.65-5.03) 02/02/17 05:30 Hgb 12.5 gm/dl (11.8-15.2) 02/02/17 05:30 Hct 39.4 % (35.5-45.6) 02/02/17 05:30 MCV 82 fl (84-94) L 02/02/17 05:30 MCH 26 pg (28-32) L 02/02/17 05:30 MCHC 32 % (32-34) 02/02/17 05:30 RDW 17.0 % (13.2-15.2) H 02/02/17 05:30 Plt Count 201 K/mm3 (140-440) 02/02/17 05:30 Lymph % (Auto) 21.7 % (13.4-35.0) 01/27/17 18:12 Lander % (Auto) 9.1 % (0.0-7.3) H 01/27/17 18:12 Eos % (Auto) 0.9 % (0.0-4.3) 01/27/17 18:12 Baso % (Auto) 1.1 % (0.0-1.8) 01/27/17 18:12 Lymph # 1.3 K/mm3 (1.2-5.4) 01/27/17 18:12 Lander # 0.5 K/mm3 (0.0-0.8) 01/27/17 18:12 Eos # 0.1 K/mm3 (0.0-0.4) 01/27/17 18:12 Baso # 0.1 K/mm3 (0.0-0.1) 01/27/17 18:12 Seg Neutrophils % 67.2 % (40.0-70.0) 01/27/17 18:12 Seg Neutrophils # 3.9 K/mm3 (1.8-7.7) 01/27/17 18:12 PT 13.6 Sec. (12.2-14.9) 02/02/17 05:30 INR 0.99 (0.87-1.13) 02/02/17 05:30 APTT 32.9 Sec. (24.2-36.6) 02/02/17 05:30 D-Dimer 390.66 ng/mlDDU (0-234) H 01/27/17 18:12 POC ABG pH 7.392 (7.35-7.45) 01/29/17 10:51 POC ABG pCO2 43.9 (35-45) 01/29/17 10:51 POC ABG pO2 76 (80-105) L 01/29/17 10:51 POC ABG HCO3 26.7 01/29/17 10:51 POC ABG Total CO2 28 01/29/17 10:51 POC ABG O2 Sat 95 01/29/17 10:51 POC ABG Base Excess 2 01/29/17 10:51 FiO2 21 % 01/29/17 10:51 Sodium 138 mmol/L (137-145) 02/04/17 04:00 Potassium 3.8 mmol/L (3.6-5.0) D 02/04/17 04:00 Chloride 97.3 mmol/L (98-107) L 02/04/17 04:00 Carbon Dioxide 25 mmol/L (22-30) 02/04/17 04:00 Anion Gap 20 mmol/L 02/04/17 04:00 BUN 58 mg/dL (9-20) H 02/04/17 04:00 Creatinine 3.4 mg/dL (0.8-1.5) H 02/04/17 04:00 Estimated GFR 22 ml/min 02/04/17 04:00 BUN/Creatinine Ratio 17 % 02/04/17 04:00 Glucose 197 mg/dL (75-100) H 02/04/17 04:00 POC Glucose 151 (70-105) H 02/04/17 07:59 Uric Acid 8.0 mg/dL (3.5-7.6) H 02/01/17 04:39 Calcium 8.4 mg/dL (8.4-10.2) 02/04/17 04:00 Troponin T 0.063 ng/mL (0.00-0.029) H 01/27/17 23:50 NT-Pro-B Natriuret Pep 98835 pg/mL (0-900) H 01/27/17 18:12 Triglycerides 97 mg/dL (2-149) 01/27/17 18:12 Cholesterol 146 mg/dL (50-199) 01/27/17 18:12 LDL Cholesterol Direct 80 mg/dL (50-130) 01/27/17 18:12 HDL Cholesterol 47 mg/dL (40-59) 01/27/17 18:12 Cholesterol/HDL Ratio 3.10 % 01/27/17 18:12
[2017-02-04] MEDS: HEPARIN SUB-Q SCH ×2 (18:09→21:59)
--- NOTE | 2017-02-04 19:10 | Progress Note ---
Assessment and Plan No complaint of chest pain or shortness of breath.O2 saturation 97% on 2 litres O2.Patient undergone cardiac catheterization yesterday. Patient thoracentesis still pending. - Patient Problems (1) Pleural effusion Current Visit: Yes Status: Acute Plan to address problem: Thoracentesis still pending. Continue supplemental O2. (2) Congestive heart failure Current Visit: Yes Status: Acute Plan to address problem: Management as per cardiology. (3) SANAM (acute kidney injury) Current Visit: No Status: Acute Plan to address problem: Management as per nephrology. (4) Malignant essential hypertension Current Visit: No Status: Acute Plan to address problem: Management as per primary care. (5) Diabetes Current Visit: No Status: Chronic Plan to address problem: Management as per primary care. Subjective Date of service: 02/04/17 Principal diagnosis: Acute Hypoxemic Resp Failure; Acute CHF exacerbation; R pleural effusion Interval history: No complaint of chest pain or shortness of breath.O2 saturation 97% on 2 litres O2.Patient undergone cardiac catheterization yesterday. Patient thoracentesis still pending. Objective Vital Signs - 12hr 02/04/17 02/04/17 02/04/17 08:23 09:02 09:03 Temperature 98.6 F Pulse Rate 94 H 100 H 109 H Respiratory 18 Rate Blood Pressure 151/101 156/86 156/86 O2 Sat by Pulse 100 Oximetry 02/04/17 02/04/17 09:57 17:12 Temperature 98.4 F Pulse Rate 98 H Respiratory 18 Rate Blood Pressure 140/86 O2 Sat by Pulse 98 98 Oximetry Constitutional: no acute distress, alert Eyes: non-icteric ENT: oropharynx moist, other (no thyromegaly) Neck: supple, no lymphadenopathy, no JVD Effort: mildly labored Ascultation: Bilateral: diminished breath sounds Percussion: Right: dull (base) Cardiovascular: regular rate and rhythm, other (no rubs/murmurs) Gastrointestinal: normoactive bowel sounds, soft, non-tender, non-distended, other (No HSM) Integumentary: normal Extremities: no cyanosis, pulses normal, no ischemia or petechiae, edema Neurologic: normal mental status, non-focal exam, pupils equal and round, motor strength normal and, other (moves all 4 extremities) Psychiatric: mood appropriate, affect normal CBC and BMP: 02/02/17 05:30 02/04/17 04:00 ABG, PT/INR, D-dimer: ABG POC ABG pH 7.392 (7.35-7.45) 01/29/17 10:51 POC ABG pCO2 43.9 (35-45) 01/29/17 10:51 POC ABG pO2 76 (80-105) L 01/29/17 10:51 POC ABG HCO3 26.7 01/29/17 10:51 POC ABG Total CO2 28 01/29/17 10:51 POC ABG O2 Sat 95 01/29/17 10:51 PT/INR, D-dimer PT 13.6 Sec. (12.2-14.9) 02/02/17 05:30 INR 0.99 (0.87-1.13) 02/02/17 05:30 D-Dimer 390.66 ng/mlDDU (0-234) H 01/27/17 18:12 Abnormal lab findings: Abnormal Labs 01/27/17 01/27/17 01/27/17 18:12 18:12 18:12 RBC 5.13 H MCV 83 L MCH 25 L MCHC 31 L RDW 17.5 H Baldwin % (Auto) 9.1 H D-Dimer 390.66 H POC ABG pO2 Sodium Potassium Chloride BUN 29 H Creatinine 3.1 H Glucose 155 H POC Glucose Uric Acid Calcium 8.0 L Troponin T 0.076 H NT-Pro-B Natriuret Pep 21317 H 01/27/17 01/28/17 01/28/17 23:50 11:05 16:53 RBC MCV MCH MCHC RDW Baldwin % (Auto) D-Dimer POC ABG pO2 Sodium Potassium Chloride BUN Creatinine Glucose POC Glucose 304 H 57 L Uric Acid Calcium Troponin T 0.063 H NT-Pro-B Natriuret Pep 01/28/17 01/29/17 01/29/17 19:52 07:55 10:51 RBC MCV MCH MCHC RDW Baldwin % (Auto) D-Dimer POC ABG pO2 76 L Sodium Potassium Chloride BUN Creatinine Glucose POC Glucose 161 H 146 H Uric Acid Calcium Troponin T NT-Pro-B Natriuret Pep 01/29/17 01/29/17 01/29/17 11:53 16:07 20:28 RBC MCV MCH MCHC RDW Baldwin % (Auto) D-Dimer POC ABG pO2 Sodium Potassium Chloride BUN Creatinine Glucose POC Glucose 272 H 157 H 170 H Uric Acid Calcium Troponin T NT-Pro-B Natriuret Pep 01/30/17 01/30/17 01/30/17 08:40 11:53 20:39 RBC MCV MCH MCHC RDW Baldwin % (Auto) D-Dimer POC ABG pO2 Sodium Potassium Chloride BUN Creatinine Glucose POC Glucose 169 H 237 H 205 H Uric Acid Calcium Troponin T NT-Pro-B Natriuret Pep 01/31/17 01/31/17 01/31/17 07:34 10:03 12:04 RBC MCV MCH MCHC RDW Baldwin % (Auto) D-Dimer POC ABG pO2 Sodium Potassium Chloride BUN 44 H Creatinine 3.4 H Glucose 119 H POC Glucose 168 H 139 H Uric Acid Calcium 7.9 L Troponin T NT-Pro-B Natriuret Pep 01/31/17 01/31/17 02/01/17 15:44 21:57 03:25 RBC MCV MCH MCHC RDW Baldwin % (Auto) D-Dimer POC ABG pO2 Sodium Potassium Chloride BUN Creatinine Glucose POC Glucose 212 H 219 H 188 H Uric Acid Calcium Troponin T NT-Pro-B Natriuret Pep 02/01/17 02/01/17 02/01/17 04:39 04:39 11:03 RBC MCV MCH MCHC RDW Baldwin % (Auto) D-Dimer POC ABG pO2 Sodium Potassium Chloride BUN 47 H Creatinine 3.3 H Glucose 174 H POC Glucose 144 H Uric Acid 8.0 H Calcium 7.7 L Troponin T NT-Pro-B Natriuret Pep 02/01/17 02/01/17 02/01/17 14:35 18:47 19:50 RBC MCV MCH MCHC RDW Baldwin % (Auto) D-Dimer POC ABG pO2 Sodium Potassium Chloride BUN Creatinine Glucose POC Glucose 52 L 238 H 251 H Uric Acid Calcium Troponin T NT-Pro-B Natriuret Pep 02/02/17 02/02/17 02/02/17 05:22 05:30 05:30 RBC MCV 82 L MCH 26 L MCHC RDW 17.0 H Baldwin % (Auto) D-Dimer POC ABG pO2 Sodium Potassium Chloride BUN 48 H Creatinine 3.2 H Glucose 158 H POC Glucose 164 H Uric Acid Calcium 8.1 L Troponin T NT-Pro-B Natriuret Pep 02/02/17 02/02/17 02/02/17 07:06 10:48 16:34 RBC MCV MCH MCHC RDW Baldwin % (Auto) D-Dimer POC ABG pO2 Sodium Potassium Chloride BUN Creatinine Glucose POC Glucose 147 H 168 H 177 H Uric Acid Calcium Troponin T NT-Pro-B Natriuret Pep 02/02/17 02/03/17 02/03/17 21:40 05:04 07:29 RBC MCV MCH MCHC RDW Baldwin % (Auto) D-Dimer POC ABG pO2 Sodium 129 L D Potassium 7.0 H* D 6.2 H* Chloride 93.3 L BUN 56 H Creatinine 3.2 H Glucose 313 H POC Glucose 192 H Uric Acid Calcium Troponin T NT-Pro-B Natriuret Pep 02/03/17 02/03/17 02/03/17 08:44 10:09 10:59 RBC MCV MCH MCHC RDW Baldwin % (Auto) D-Dimer POC ABG pO2 Sodium 135 L Potassium 6.3 H* Chloride 96.1 L BUN 55 H Creatinine 3.2 H Glucose 249 H POC Glucose 267 H 241 H Uric Acid Calcium Troponin T NT-Pro-B Natriuret Pep 02/03/17 02/03/17 02/03/17 15:18 17:12 17:13 RBC MCV MCH MCHC RDW Baldwin % (Auto) D-Dimer POC ABG pO2 Sodium Potassium 5.3 H 5.7 H Chloride 97.3 L 97.9 L BUN 55 H 57 H Creatinine 3.5 H 3.6 H Glucose 283 H 273 H POC Glucose 281 H Uric Acid Calcium Troponin T NT-Pro-B Natriuret Pep 02/03/17 02/04/17 02/04/17 21:03 04:00 07:59 RBC MCV MCH MCHC RDW Baldwin % (Auto) D-Dimer POC ABG pO2 Sodium Potassium Chloride 97.3 L BUN 58 H Creatinine 3.4 H Glucose 197 H POC Glucose 171 H 151 H Uric Acid Calcium Troponin T NT-Pro-B Natriuret Pep 02/04/17 02/04/17 12:38 16:50 RBC MCV MCH MCHC RDW Baldwin % (Auto) D-Dimer POC ABG pO2 Sodium Potassium Chloride BUN Creatinine Glucose POC Glucose 121 H 324 H Uric Acid Calcium Troponin T NT-Pro-B Natriuret Pep
[2017-02-04] MEDS: LEVEMIR SUB-Q SCH (21:59)
[2017-02-05 06:35] LABS: Calcium 8.1 mg/dL (8.4-10.2); Chloride 93.5 mmol/L (98-107); Potassium 3.6 mmol/L (3.6-5.0)
[2017-02-05] MEDS: NOVOLOG SUB-Q SCH ×8 (07:28→21:57)
--- NOTE | 2017-02-05 09:22 | Progress Note ---
Subjective Principal diagnosis: Acute Hypoxemic Resp Failure; Acute CHF exacerbation; R pleural effusion Interval history: Patient was seen today for follow-up on multiple renal related issues Events of 24 hours vitals labs intake output medications were reviewed Feeling much better no compressive any nausea vomiting Interdisciplinary Notes were also reviewed Past medical history: Reviewed Social history: Reviewed Allergies: Reviewed Medication: Reviewed Labs: Reviewed Physical examination Gen.: No acute distress HEENT: Oral mucosa moist, mild pallor no icterus Neck: Supple no thyromegaly nodular mass or JVD Chest: Clear to auscultation anteriorly Heart: Regular rate and rhythm S1 and S2 heard Abdomen: Soft nontender no renal bruit no CVA tenderness no suprapubic fullness Extremity: Edema approximately 1+ dry skin no purpuric rash Dermatology: Dry skin no rash Neurological: Alert awake oriented 4 Assessment and plan Chronic kidney disease: Patient needs monitoring of renal function, status post radiocontrast exposure strict intake and output monitoring and follow-up Creatinine is currently 3.1 as of February 05, patient is to make a follow-up appointment in the office Avoid any type of CHAPIN inhibitor is angiotensin receptor qiana for now can be considered and a lower dose if needed later date Strict fluid restriction 1200 mL per day daily weight monitoring avoid Lasix for now Congestive heart failure education was done patient needs to stay with renal diet History of underlying cardiomyopathy Will need assessment of degree of proteinuria explained him again about multiple renal related issues Objective - Vital Signs Vital signs: Vital Signs - 12hr 02/04/17 02/05/17 02/05/17 21:58 00:43 05:04 Temperature 98.4 F 98.5 F Pulse Rate 105 H 87 91 H Respiratory 18 18 Rate Blood Pressure 154/85 147/81 152/90 O2 Sat by Pulse 99 96 Oximetry - Lab 02/02/17 05:30 02/05/17 04:56 Most recent lab results Calcium 8.1 mg/dL (8.4-10.2) L 02/05/17 04:56
[2017-02-05] MEDS: DELTASONE PO SCH (10:30)
[2017-02-05] MEDS: NORVASC PO SCH (10:30)
[2017-02-05] MEDS: HEPARIN SUB-Q SCH ×2 (10:30→21:56)
[2017-02-05] MEDS: LOPRESSOR PO SCH ×2 (10:30→21:56)
--- NOTE | 2017-02-05 11:37 | Progress Note ---
Assessment and Plan Acute systolic heart failure low probability for PE on V/Q scan EF 40-45% on echo 11/2016 normal perfusion MPI 11/2016 R/L heart cath findings: 1. Moderate pulm HTN. PASP 55. 2. Non-obstructive disease of mid LAD. 3. Severe disease of the diagonal branch-for medical therapy. 4. EF 35-40%. Chronic renal disease Hypertension Diabetes PVD on plavix therapy Recommendations: Continue medical therapy recommended for small vessel branch disease and systolic heart failure Advised low sodium diet and fluid restriction. Subjective Date of service: 02/05/17 Principal diagnosis: Acute Hypoxemic Resp Failure; Acute CHF exacerbation; R pleural effusion Interval history: No cardiac complaints. Objective Vital Signs Temp Pulse Resp BP Pulse Ox 02/05/17 05:04 98.5 F 91 H 18 152/90 96 02/05/17 00:43 98.4 F 87 18 147/81 99 02/04/17 21:58 105 H 154/85 02/04/17 20:10 98.5 F 105 H 18 154/85 97 02/04/17 20:00 105 H 02/04/17 17:12 98.4 F 98 H 18 140/86 98 - Physical Examination General: No Apparent Distress HEENT: Positive: PERRL Cardiac: Positive: Reg Rate and Rhythm Neuro: Positive: Grossly Intact Extremities: Present: +1 Edema - Labs and Meds Comprehensive Metabolic Panel 02/05/17 Range/Units 04:56 Sodium 135 L (137-145) mmol/L Potassium 3.6 (3.6-5.0) mmol/L Chloride 93.5 L (98-107) mmol/L Carbon Dioxide 24 (22-30) mmol/L BUN 56 H (9-20) mg/dL Creatinine 3.1 H (0.8-1.5) mg/dL Glucose 222 H (75-100) mg/dL Calcium 8.1 L (8.4-10.2) mg/dL
--- NOTE | 2017-02-05 12:40 | Progress Note ---
Assessment and Plan Assessment and plan: Patient is a 61-year-old man with history of hypertension, systolic heart failure, dyslipidemia, chronic kidney failure stage III, diabetes mellitus type 2 and peripheral artery disease on Plavix who presented with shortness of breath. Chest x-ray reported as CHF, Persantine thallium stress test reported as normal perfusion scan, transthoracic echocardiogram reported as mildly decreased left ventricular systolic function 40-45%. On 02/02/17 R/L heart cath completed, no complications. Findings: 1. Moderate pulm HTN. PASP 55. 2. Non-obstructive disease of mid LAD. 3. Severe disease of the diagonal branch-for medical therapy. 4. EF 35-40%. Recommend medical therapy and RF modification per Dr. Vidal, [employer] Work[employer]. Acute hypoxic respiratory failure, still on 2.5 liters of O2 weaning o2 trails daily Acute bilateral pulmonary pleural effusions Pulmonology is following and requested thoracentesis but it will be delay due to use of plavix Acute systolic heart failure - Ejection fraction was 40-45% - MPI was negative on 12/09, cardiac cath was done and clean coronaries - Patient is on Lasix, metoprolol - Cardiology following - No kaylee inhibitor/arb due to renal failure Acute on Chronic kidney disease 3 - Nephrology following Hypokalemia - Patient was given Kayexalate - Could be a combination of contrast and ARB, database discontinued Hypertensive heart disease - On amlodipine and lopressor -no kaylee due to renal dysfunction Diabetes mellitus type 2 - On basal and insulin sliding scale insulin Peripheral vascular disease - plavix on hold for the thoracentesis Gout - Patient uric acid is elevated - He is started on by mouth prednisone, no NSAIDs because of his kidney function DVT prophylaxis - Heparin Disposition -Continue inpatient care. 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 02/05/14: Awaiting thorancentesis on Thursday due to plavix use History Interval history: Patient was seen and examined. Follow-up on current diagnosis. Overnight uneventful. Patient denies any chest pain, nausea/vomiting or severe headaches. Imaging, nursing note, chart, labs and old chart reviewed. Discussed with patient. Shortness of breath is improved but he still on 2-1/2 L oxygen which is new for him. Hospitalist Physical - Physical exam Narrative exam: GEN: WDWN, NAD, AWAKE, ALERT, ORIENTATED 3 HEENT: NCAT, EOMI, PERRL, OP Clear NECK: supple, no adenopathy, no thyromegaly, + JVD CVS/HEART: Rrr, NORMAL S1S2, NO JVD, pulses present bilaterally CHEST/LUNGS: CTA B, Symmetrical chest expansion, good air entry bilaterally GI/Abdomen: soft, NTND, good bowel sounds, no guarding or rebound /Bladder: no suprapubic tenderness, no CVA or paraspinal tenderness EXT/Skin: no c/c/e, no obvious rash MSK: FROM x 4 Neuro: CN 2-12 grossly intact, no new focal deficits Psych: calm - Constitutional Vitals: Temp Pulse Resp BP Pulse Ox 98.5 F 87 18 152/90 96 02/05/17 05:04 02/05/17 11:44 02/05/17 05:04 02/05/17 05:04 02/05/17 05:04 General appearance: Present: no acute distress Results - Labs CBC & Chem 7: 02/02/17 05:30 02/05/17 04:56 Labs: Laboratory Last Values WBC 5.0 K/mm3 (4.5-11.0) 02/02/17 05:30 RBC 4.83 M/mm3 (3.65-5.03) 02/02/17 05:30 Hgb 12.5 gm/dl (11.8-15.2) 02/02/17 05:30 Hct 39.4 % (35.5-45.6) 02/02/17 05:30 MCV 82 fl (84-94) L 02/02/17 05:30 MCH 26 pg (28-32) L 02/02/17 05:30 MCHC 32 % (32-34) 02/02/17 05:30 RDW 17.0 % (13.2-15.2) H 02/02/17 05:30 Plt Count 201 K/mm3 (140-440) 02/02/17 05:30 Lymph % (Auto) 21.7 % (13.4-35.0) 01/27/17 18:12 [place] % (Auto) 9.1 % (0.0-7.3) H 01/27/17 18:12 Eos % (Auto) 0.9 % (0.0-4.3) 01/27/17 18:12 Baso % (Auto) 1.1 % (0.0-1.8) 01/27/17 18:12 Lymph # 1.3 K/mm3 (1.2-5.4) 01/27/17 18:12 [place] # 0.5 K/mm3 (0.0-0.8) 01/27/17 18:12 Eos # 0.1 K/mm3 (0.0-0.4) 01/27/17 18:12 Baso # 0.1 K/mm3 (0.0-0.1) 01/27/17 18:12 Seg Neutrophils % 67.2 % (40.0-70.0) 01/27/17 18:12 Seg Neutrophils # 3.9 K/mm3 (1.8-7.7) 01/27/17 18:12 PT 13.6 Sec. (12.2-14.9) 02/02/17 05:30 INR 0.99 (0.87-1.13) 02/02/17 05:30 APTT 32.9 Sec. (24.2-36.6) 02/02/17 05:30 D-Dimer 390.66 ng/mlDDU (0-234) H 01/27/17 18:12 POC ABG pH 7.392 (7.35-7.45) 01/29/17 10:51 POC ABG pCO2 43.9 (35-45) 01/29/17 10:51 POC ABG pO2 76 (80-105) L 01/29/17 10:51 POC ABG HCO3 26.7 01/29/17 10:51 POC ABG Total CO2 28 01/29/17 10:51 POC ABG O2 Sat 95 01/29/17 10:51 POC ABG Base Excess 2 01/29/17 10:51 FiO2 21 % 01/29/17 10:51 Sodium 135 mmol/L (137-145) L 02/05/17 04:56 Potassium 3.6 mmol/L (3.6-5.0) 02/05/17 04:56 Chloride 93.5 mmol/L (98-107) L 02/05/17 04:56 Carbon Dioxide 24 mmol/L (22-30) 02/05/17 04:56 Anion Gap 21 mmol/L 02/05/17 04:56 BUN 56 mg/dL (9-20) H 02/05/17 04:56 Creatinine 3.1 mg/dL (0.8-1.5) H 02/05/17 04:56 Estimated GFR 25 ml/min 02/05/17 04:56 BUN/Creatinine Ratio 18 % 02/05/17 04:56 Glucose 222 mg/dL (75-100) H 02/05/17 04:56 POC Glucose 188 (70-105) H 02/05/17 12:02 Uric Acid 8.0 mg/dL (3.5-7.6) H 02/01/17 04:39 Calcium 8.1 mg/dL (8.4-10.2) L 02/05/17 04:56 Troponin T 0.063 ng/mL (0.00-0.029) H 01/27/17 23:50 NT-Pro-B Natriuret Pep 26031 pg/mL (0-900) H 01/27/17 18:12 Triglycerides 97 mg/dL (2-149) 01/27/17 18:12 Cholesterol 146 mg/dL (50-199) 01/27/17 18:12 LDL Cholesterol Direct 80 mg/dL (50-130) 01/27/17 18:12 HDL Cholesterol 47 mg/dL (40-59) 01/27/17 18:12 Cholesterol/HDL Ratio 3.10 % 01/27/17 18:12
--- NOTE | 2017-02-05 13:47 | Progress Note ---
Assessment and Plan Acute Hypoxemic Respiratory Failure Right Pleural Effusion Acute exacerbation of CHF [place] on CKD Hypertension Diabetes. Hyperlipidemia. Elevated D dimer. (Clinical exam now consistent with resolution of pleural Effusion) - repeat CXR - if effusion has resolved can resume plavix and will cancel Thoracentesis - continue to wean oxygen for sats > 94% - repeat ABG on RA in am - continue diuresis but follow I's & O's as well as BUN/Cr - VTE w/up negative (Dopplers and VQ scan) - continue albuterol prn - continue VTE prophylaxis Subjective Date of service: 02/05/17 Principal diagnosis: Acute Hypoxemic Resp Failure; Acute CHF exacerbation; R pleural effusion Interval history: Patient is seen today for: Acute Hypoxemic Resp Failure; Acute CHF exacerbation ; R pleural effusion Seen and examined at bedside; 24hour events reviewed; nursing and respiratory care staff consulted; no adverse overnight events reported to me; resting in bed ; feels better; remains on supplemental oxygen; awaiting thoracentesis; plavix on hold Objective Vital Signs - 12hr 02/05/17 02/05/17 05:04 11:44 Temperature 98.5 F Pulse Rate 91 H 87 Respiratory 18 Rate Blood Pressure 152/90 O2 Sat by Pulse 96 Oximetry Constitutional: no acute distress, alert Eyes: non-icteric ENT: oropharynx moist, other (no thyromegaly) Neck: supple, no lymphadenopathy, no JVD Effort: mildly labored Ascultation: Bilateral: rhonchi (scant in bases bilaterally) Cardiovascular: regular rate and rhythm, other (no rubs/murmurs) Gastrointestinal: normoactive bowel sounds, soft, non-tender, non-distended, other (No HSM) Integumentary: normal Extremities: no cyanosis, pulses normal, no ischemia or petechiae, edema Neurologic: normal mental status, non-focal exam, pupils equal and round, motor strength normal and, other (moves all 4 extremities) Psychiatric: mood appropriate, affect normal CBC and BMP: 02/02/17 05:30 02/05/17 04:56 ABG, PT/INR, D-dimer: ABG POC ABG pH 7.392 (7.35-7.45) 01/29/17 10:51 POC ABG pCO2 43.9 (35-45) 01/29/17 10:51 POC ABG pO2 76 (80-105) L 01/29/17 10:51 POC ABG HCO3 26.7 01/29/17 10:51 POC ABG Total CO2 28 01/29/17 10:51 POC ABG O2 Sat 95 01/29/17 10:51 PT/INR, D-dimer PT 13.6 Sec. (12.2-14.9) 02/02/17 05:30 INR 0.99 (0.87-1.13) 02/02/17 05:30 D-Dimer 390.66 ng/mlDDU (0-234) H 01/27/17 18:12 Abnormal lab findings: Abnormal Labs 01/27/17 01/27/17 01/27/17 18:12 18:12 18:12 RBC 5.13 H MCV 83 L MCH 25 L MCHC 31 L RDW 17.5 H [place] % (Auto) 9.1 H D-Dimer 390.66 H POC ABG pO2 Sodium Potassium Chloride BUN 29 H Creatinine 3.1 H Glucose 155 H POC Glucose Uric Acid Calcium 8.0 L Troponin T 0.076 H NT-Pro-B Natriuret Pep 73237 H 01/27/17 01/28/17 01/28/17 23:50 11:05 16:53 RBC MCV MCH MCHC RDW [place] % (Auto) D-Dimer POC ABG pO2 Sodium Potassium Chloride BUN Creatinine Glucose POC Glucose 304 H 57 L Uric Acid Calcium Troponin T 0.063 H NT-Pro-B Natriuret Pep 01/28/17 01/29/17 01/29/17 19:52 07:55 10:51 RBC MCV MCH MCHC RDW [place] % (Auto) D-Dimer POC ABG pO2 76 L Sodium Potassium Chloride BUN Creatinine Glucose POC Glucose 161 H 146 H Uric Acid Calcium Troponin T NT-Pro-B Natriuret Pep 01/29/17 01/29/17 01/29/17 11:53 16:07 20:28 RBC MCV MCH MCHC RDW [place] % (Auto) D-Dimer POC ABG pO2 Sodium Potassium Chloride BUN Creatinine Glucose POC Glucose 272 H 157 H 170 H Uric Acid Calcium Troponin T NT-Pro-B Natriuret Pep 01/30/17 01/30/17 01/30/17 08:40 11:53 20:39 RBC MCV MCH MCHC RDW [place] % (Auto) D-Dimer POC ABG pO2 Sodium Potassium Chloride BUN Creatinine Glucose POC Glucose 169 H 237 H 205 H Uric Acid Calcium Troponin T NT-Pro-B Natriuret Pep 01/31/17 01/31/17 01/31/17 07:34 10:03 12:04 RBC MCV MCH MCHC RDW [place] % (Auto) D-Dimer POC ABG pO2 Sodium Potassium Chloride BUN 44 H Creatinine 3.4 H Glucose 119 H POC Glucose 168 H 139 H Uric Acid Calcium 7.9 L Troponin T NT-Pro-B Natriuret Pep 01/31/17 01/31/17 02/01/17 15:44 21:57 03:25 RBC MCV MCH MCHC RDW [place] % (Auto) D-Dimer POC ABG pO2 Sodium Potassium Chloride BUN Creatinine Glucose POC Glucose 212 H 219 H 188 H Uric Acid Calcium Troponin T NT-Pro-B Natriuret Pep 02/01/17 02/01/17 02/01/17 04:39 04:39 11:03 RBC MCV MCH MCHC RDW [place] % (Auto) D-Dimer POC ABG pO2 Sodium Potassium Chloride BUN 47 H Creatinine 3.3 H Glucose 174 H POC Glucose 144 H Uric Acid 8.0 H Calcium 7.7 L Troponin T NT-Pro-B Natriuret Pep 02/01/17 02/01/17 02/01/17 14:35 18:47 19:50 RBC MCV MCH MCHC RDW [place] % (Auto) D-Dimer POC ABG pO2 Sodium Potassium Chloride BUN Creatinine Glucose POC Glucose 52 L 238 H 251 H Uric Acid Calcium Troponin T NT-Pro-B Natriuret Pep 02/02/17 02/02/17 02/02/17 05:22 05:30 05:30 RBC MCV 82 L MCH 26 L MCHC RDW 17.0 H [place] % (Auto) D-Dimer POC ABG pO2 Sodium Potassium Chloride BUN 48 H Creatinine 3.2 H Glucose 158 H POC Glucose 164 H Uric Acid Calcium 8.1 L Troponin T NT-Pro-B Natriuret Pep 02/02/17 02/02/17 02/02/17 07:06 10:48 16:34 RBC MCV MCH MCHC RDW [place] % (Auto) D-Dimer POC ABG pO2 Sodium Potassium Chloride BUN Creatinine Glucose POC Glucose 147 H 168 H 177 H Uric Acid Calcium Troponin T NT-Pro-B Natriuret Pep 02/02/17 02/03/17 02/03/17 21:40 05:04 07:29 RBC MCV MCH MCHC RDW [place] % (Auto) D-Dimer POC ABG pO2 Sodium 129 L D Potassium 7.0 H* D 6.2 H* Chloride 93.3 L BUN 56 H Creatinine 3.2 H Glucose 313 H POC Glucose 192 H Uric Acid Calcium Troponin T NT-Pro-B Natriuret Pep 02/03/17 02/03/17 02/03/17 08:44 10:09 10:59 RBC MCV MCH MCHC RDW [place] % (Auto) D-Dimer POC ABG pO2 Sodium 135 L Potassium 6.3 H* Chloride 96.1 L BUN 55 H Creatinine 3.2 H Glucose 249 H POC Glucose 267 H 241 H Uric Acid Calcium Troponin T NT-Pro-B Natriuret Pep 02/03/17 02/03/17 02/03/17 15:18 17:12 17:13 RBC MCV MCH MCHC RDW [place] % (Auto) D-Dimer POC ABG pO2 Sodium Potassium 5.3 H 5.7 H Chloride 97.3 L 97.9 L BUN 55 H 57 H Creatinine 3.5 H 3.6 H Glucose 283 H 273 H POC Glucose 281 H Uric Acid Calcium Troponin T NT-Pro-B Natriuret Pep 02/03/17 02/04/17 02/04/17 21:03 04:00 07:59 RBC MCV MCH MCHC RDW [place] % (Auto) D-Dimer POC ABG pO2 Sodium Potassium Chloride 97.3 L BUN 58 H Creatinine 3.4 H Glucose 197 H POC Glucose 171 H 151 H Uric Acid Calcium Troponin T NT-Pro-B Natriuret Pep 02/04/17 02/04/17 02/04/17 12:38 16:50 21:41 RBC MCV MCH MCHC RDW [place] % (Auto) D-Dimer POC ABG pO2 Sodium Potassium Chloride BUN Creatinine Glucose POC Glucose 121 H 324 H 325 H Uric Acid Calcium Troponin T NT-Pro-B Natriuret Pep 02/05/17 02/05/17 02/05/17 04:56 08:41 12:02 RBC MCV MCH MCHC RDW [place] % (Auto) D-Dimer POC ABG pO2 Sodium 135 L Potassium Chloride 93.5 L BUN 56 H Creatinine 3.1 H Glucose 222 H POC Glucose 157 H 188 H Uric Acid Calcium 8.1 L Troponin T NT-Pro-B Natriuret Pep
--- NOTE | 2017-02-05 15:20 | XRay Report ---
AP CHEST: HISTORY: Right pleural effusion AP view of the chest demonstrates a normal mediastinal and cardiac contour with clear lungs and normal bony and soft tissue structures. Small right pleural effusion or right basilar atelectasis has resolved since 01/27/17. IMPRESSION: Unremarkable AP chest.
[2017-02-05] MEDS: LEVEMIR SUB-Q SCH (21:55)
[2017-02-06 06:39] LABS: Calcium 8.2 mg/dL (8.4-10.2); Chloride 96.2 mmol/L (98-107)
[2017-02-06 06:53] LABS: Potassium 4.7 mmol/L (3.6-5.0)
[2017-02-06] MEDS: NOVOLOG SUB-Q SCH ×4 (08:14→12:16)
--- NOTE | 2017-02-06 08:37 | Progress Note ---
Assessment and Plan Acute systolic heart failure low probability for PE on V/Q scan EF 40-45% on echo 11/2016 normal perfusion MPI 11/2016 R/L heart cath findings: 1. Moderate pulm HTN. PASP 55. 2. Non-obstructive disease of mid LAD. 3. Severe disease of the diagonal branch-for medical therapy. 4. EF 35-40%. Right Pleural effusion Chronic renal disease Hypertension Diabetes PVD on plavix therapy as an outpatient Recommendations: Continue medical therapy recommended for small vessel branch disease and systolic heart failure. Advised low sodium diet and fluid restriction. Subjective Date of service: 02/06/17 Principal diagnosis: Acute Hypoxemic Resp Failure; Acute CHF exacerbation; R pleural effusion Interval history: No cardiac complaints. Objective Vital Signs Temp Pulse Resp BP BP Pulse Ox 02/06/17 04:28 84 152/95 100 02/06/17 00:22 98.7 F 87 20 141/85 100 02/05/17 23:00 87 02/05/17 22:00 18 98 02/05/17 21:56 95 H 148/82 02/05/17 19:58 97.6 F 95 H 18 148/82 100 02/05/17 18:02 97.1 F L 94 H 146/84 02/05/17 17:16 91 H 100 02/05/17 11:44 87 02/05/17 08:53 96 H 99 - Physical Examination General: No Apparent Distress HEENT: Positive: PERRL Cardiac: Positive: Reg Rate and Rhythm Lungs: Positive: Decreased Breath Sounds Neuro: Positive: Grossly Intact Extremities: Present: +1 Edema - Labs and Meds Comprehensive Metabolic Panel 02/06/17 Range/Units 04:44 Sodium 137 (137-145) mmol/L Potassium 4.7 D (3.6-5.0) mmol/L Chloride 96.2 L (98-107) mmol/L Carbon Dioxide 25 (22-30) mmol/L BUN 55 H (9-20) mg/dL Creatinine 3.2 H (0.8-1.5) mg/dL Glucose 179 H (75-100) mg/dL Calcium 8.2 L (8.4-10.2) mg/dL
[2017-02-06] MEDS: DELTASONE PO SCH (09:45)
[2017-02-06] MEDS: LOPRESSOR PO SCH (09:46)
[2017-02-06] MEDS: HEPARIN SUB-Q SCH (09:49)
[2017-02-06] MEDS: NORVASC PO SCH (09:49)
--- NOTE | 2017-02-06 10:38 | Progress Note ---
Subjective Principal diagnosis: Acute Hypoxemic Resp Failure; Acute CHF exacerbation; R pleural effusion Objective - Vital Signs Vital signs: Vital Signs - 12hr 02/05/17 02/06/17 02/06/17 23:00 00:22 04:28 Temperature 98.7 F Pulse Rate 87 87 84 Respiratory 20 Rate Blood Pressure 141/85 152/95 O2 Sat by Pulse 100 100 Oximetry 02/06/17 02/06/17 09:46 09:49 Temperature Pulse Rate 90 90 Respiratory Rate Blood Pressure 152/90 152/90 O2 Sat by Pulse Oximetry - Lab 02/02/17 05:30 02/06/17 04:44 Most recent lab results Calcium 8.2 mg/dL (8.4-10.2) L 02/06/17 04:44
--- NOTE | 2017-02-06 12:14 | Progress Note ---
Assessment and Plan Assessment and plan: Patient is a 61-year-old man with history of hypertension, systolic heart failure, dyslipidemia, chronic kidney failure stage III, diabetes mellitus type 2 and peripheral artery disease on Plavix who presented with shortness of breath. Chest x-ray reported as CHF, Persantine thallium stress test reported as normal perfusion scan, transthoracic echocardiogram reported as mildly decreased left ventricular systolic function 40-45%. On 02/02/17 R/L heart cath completed, no complications. Findings: 1. Moderate pulm HTN. PASP 55. 2. Non-obstructive disease of mid LAD. 3. Severe disease of the diagonal branch-for medical therapy. 4. EF 35-40%. Recommend medical therapy and RF modification per Dr. Vidal, [employer]. Acute hypoxic respiratory failure, still on 2.5 liters of O2 weaning o2 trails daily Acute bilateral pulmonary pleural effusions Pulmonology is following and requested thoracentesis but it will be delay due to use of plavix Acute systolic heart failure - Ejection fraction was 40-45% - MPI was negative on 12/09, cardiac cath was done and clean coronaries - Patient is on Lasix, metoprolol - Cardiology following - No kaylee inhibitor/arb due to renal failure Acute on Chronic kidney disease 3 - Nephrology following Hypokalemia - Patient was given Kayexalate - Could be a combination of contrast and ARB, database discontinued Hypertensive heart disease - On amlodipine and lopressor -no kaylee due to renal dysfunction Diabetes mellitus type 2 - On basal and insulin sliding scale insulin Peripheral vascular disease - plavix on hold for the thoracentesis Gout - Patient uric acid is elevated - He is started on by mouth prednisone, no NSAIDs because of his kidney function DVT prophylaxis - Heparin Disposition -Continue inpatient care. 02/04/17: [employer], Dr. Manriquez Recommendations: Medical therapy recommended for small vessel branch disease and systolic heart failure Patient is scheduled for thoracentesis on thursday Advised low sodium diet and fluid restriction. 02/05/17: Awaiting thorancentesis on Thursday due to plavix use 02/06/17: Right pleural effusion resolved, cancel thorancentesis, ?discharge. History Interval history: Patient was seen and examined. Follow-up on current diagnosis. Overnight uneventful. Patient denies any chest pain, nausea/vomiting or severe headaches. Imaging, nursing note, chart, labs and old chart reviewed. Discussed with patient. Shortness of breath is improved but he still on 2-1/2 L oxygen which is new for him. Hospitalist Physical - Physical exam Narrative exam: GEN: WDWN, NAD, AWAKE, ALERT, ORIENTATED 3 HEENT: NCAT, EOMI, PERRL, OP Clear NECK: supple, no adenopathy, no thyromegaly, + JVD CVS/HEART: Rrr, NORMAL S1S2, NO JVD, pulses present bilaterally CHEST/LUNGS: CTA B, Symmetrical chest expansion, good air entry bilaterally GI/Abdomen: soft, NTND, good bowel sounds, no guarding or rebound /Bladder: no suprapubic tenderness, no CVA or paraspinal tenderness EXT/Skin: no c/c/e, no obvious rash MSK: FROM x 4 Neuro: CN 2-12 grossly intact, no new focal deficits Psych: calm - Constitutional Vitals: Temp Pulse Resp BP Pulse Ox 98.7 F 90 20 152/90 100 02/06/17 00:22 02/06/17 09:49 02/06/17 00:22 02/06/17 09:49 02/06/17 04:28 General appearance: Present: no acute distress Results - Labs CBC & Chem 7: 02/02/17 05:30 02/06/17 04:44 Labs: Laboratory Last Values WBC 5.0 K/mm3 (4.5-11.0) 02/02/17 05:30 RBC 4.83 M/mm3 (3.65-5.03) 02/02/17 05:30 Hgb 12.5 gm/dl (11.8-15.2) 02/02/17 05:30 Hct 39.4 % (35.5-45.6) 02/02/17 05:30 MCV 82 fl (84-94) L 02/02/17 05:30 MCH 26 pg (28-32) L 02/02/17 05:30 MCHC 32 % (32-34) 02/02/17 05:30 RDW 17.0 % (13.2-15.2) H 02/02/17 05:30 Plt Count 201 K/mm3 (140-440) 02/02/17 05:30 Lymph % (Auto) 21.7 % (13.4-35.0) 01/27/17 18:12 [facility] % (Auto) 9.1 % (0.0-7.3) H 01/27/17 18:12 Eos % (Auto) 0.9 % (0.0-4.3) 01/27/17 18:12 Baso % (Auto) 1.1 % (0.0-1.8) 01/27/17 18:12 Lymph # 1.3 K/mm3 (1.2-5.4) 01/27/17 18:12 [facility] # 0.5 K/mm3 (0.0-0.8) 01/27/17 18:12 Eos # 0.1 K/mm3 (0.0-0.4) 01/27/17 18:12 Baso # 0.1 K/mm3 (0.0-0.1) 01/27/17 18:12 Seg Neutrophils % 67.2 % (40.0-70.0) 01/27/17 18:12 Seg Neutrophils # 3.9 K/mm3 (1.8-7.7) 01/27/17 18:12 PT 13.6 Sec. (12.2-14.9) 02/02/17 05:30 INR 0.99 (0.87-1.13) 02/02/17 05:30 APTT 32.9 Sec. (24.2-36.6) 02/02/17 05:30 D-Dimer 390.66 ng/mlDDU (0-234) H 01/27/17 18:12 POC ABG pH 7.392 (7.35-7.45) 01/29/17 10:51 POC ABG pCO2 43.9 (35-45) 01/29/17 10:51 POC ABG pO2 76 (80-105) L 01/29/17 10:51 POC ABG HCO3 26.7 01/29/17 10:51 POC ABG Total CO2 28 01/29/17 10:51 POC ABG O2 Sat 95 01/29/17 10:51 POC ABG Base Excess 2 01/29/17 10:51 FiO2 21 % 01/29/17 10:51 Sodium 137 mmol/L (137-145) 02/06/17 04:44 Potassium 4.7 mmol/L (3.6-5.0) D 02/06/17 04:44 Chloride 96.2 mmol/L (98-107) L 02/06/17 04:44 Carbon Dioxide 25 mmol/L (22-30) 02/06/17 04:44 Anion Gap 21 mmol/L 02/06/17 04:44 BUN 55 mg/dL (9-20) H 02/06/17 04:44 Creatinine 3.2 mg/dL (0.8-1.5) H 02/06/17 04:44 Estimated GFR 24 ml/min 02/06/17 04:44 BUN/Creatinine Ratio 17 % 02/06/17 04:44 Glucose 179 mg/dL (75-100) H 02/06/17 04:44 POC Glucose 144 (70-105) H 02/06/17 07:37 Uric Acid 8.0 mg/dL (3.5-7.6) H 02/01/17 04:39 Calcium 8.2 mg/dL (8.4-10.2) L 02/06/17 04:44 Troponin T 0.063 ng/mL (0.00-0.029) H 01/27/17 23:50 NT-Pro-B Natriuret Pep 01636 pg/mL (0-900) H 01/27/17 18:12 Triglycerides 97 mg/dL (2-149) 01/27/17 18:12 Cholesterol 146 mg/dL (50-199) 01/27/17 18:12 LDL Cholesterol Direct 80 mg/dL (50-130) 01/27/17 18:12 HDL Cholesterol 47 mg/dL (40-59) 01/27/17 18:12 Cholesterol/HDL Ratio 3.10 % 01/27/17 18:12
--- NOTE | 2017-02-06 12:24 | Discharge Summary ---
Providers - Providers Date of Admission: 01/28/17 04:52 Date of discharge: 02/06/17 Attending physician: OSCAR SYED 01/28/17 08:34 Consult to Physician [CONS] Routine Consulting Provider: YELENA DELONG Reason For Exam: chf Place consult to:: Dr. Delong Notified:: Mirna RN Phone number called:: Was contact made?: Yes If yes, spoke with:: Rosalinda-answering service Time called:: 17:41 01/28/17 08:36 Consult to Physician [CONS] Routine Consulting Provider: PRAVIN EDOUARD Reason For Exam: R pleural effusion Place consult to:: Dr. Edouard Notified:: Mirna RN Phone number called:: Was contact made?: Yes If yes, spoke with:: Voicemail with consult info left via automated voicemail Time called:: 17:44 01/28/17 13:03 Consult to Physician [CONS] Routine Consulting Provider: JOSSY MACIEL Reason For Exam: Acute on chronic renal fa Place consult to:: Dr. Maciel Notified:: Mirna BARROSO Phone number called:: Was contact made?: Yes If yes, spoke with:: Leonarda-answering service Time called:: 17:52 02/02/17 14:26 Consult to Cardiac Rehabilitation [CONS] Routine Reason For Exam: Cardiac Rehab Evaluation Primary care physician: SUPERVISOR FELTING Hospitalization Condition: Stable Hospital course: Patient is a 61-year-old man with history of hypertension, systolic heart failure, dyslipidemia, chronic kidney failure stage III, diabetes mellitus type 2 and peripheral artery disease on Plavix who presented with shortness of breath. Chest x-ray reported as CHF, Persantine thallium stress test reported as normal perfusion scan, transthoracic echocardiogram reported as mildly decreased left ventricular systolic function 40-45%. On 02/02/17 R/L heart cath completed, no complications. Findings: 1. Moderate pulm HTN. PASP 55. 2. Non-obstructive disease of mid LAD. 3. Severe disease of the diagonal branch-for medical therapy. 4. EF 35-40%. Recommend medical therapy and RF modification per Dr. Delong, Architectural Designer. Acute hypoxic respiratory failure, still on 2.5 liters of O2 weaning o2 trails daily Acute bilateral pulmonary pleural effusions Pulmonology is following and requested thoracentesis but it will be delay due to use of plavix Acute systolic heart failure - Ejection fraction was 40-45% - MPI was negative on 12/09, cardiac cath was done and clean coronaries - Patient is on Lasix, metoprolol - Cardiology following - No chapin inhibitor/arb due to renal failure Acute on Chronic kidney disease 3 - Nephrology following Hypokalemia - Patient was given Kayexalate - Could be a combination of contrast and ARB, database discontinued Hypertensive heart disease - On amlodipine and lopressor -no chapin due to renal dysfunction Diabetes mellitus type 2 - On basal and insulin sliding scale insulin Peripheral vascular disease - plavix on hold for the thoracentesis Gout - Patient uric acid is elevated - He is started on by mouth prednisone, no NSAIDs because of his kidney function DVT prophylaxis - Heparin Disposition -Continue inpatient care. 02/04/17: Architectural Designer, Dr. Manriquez Recommendations: Medical therapy recommended for small vessel branch disease and systolic heart failure Patient is scheduled for thoracentesis on thursday Advised low sodium diet and fluid restriction. 02/05/17: Awaiting thorancentesis on Thursday due to plavix use 02/06/17: Right pleural effusion resolved, cancelled thorancentesis, d/w ingrid Blanchard to discharge, d/w ingrid Quinn discharge pending home O2 evaluate, d/w Nurse to check pulse ox with activity on RA Disposition: DC-01 TO HOME OR SELFCARE Time spent for discharge: 35 minutes Core Measure Documentation - Palliative Care Palliative Care/ Comfort Measures: Not Applicable - Core Measures Any of the following diagnoses?: heart failure - VTE Discharge Requirements Deep Vein Thrombosis/Pulmonary Embolism Present on Admission: No Has pt received <5 days of overlap therapy or INR<2.0: No Anticoagulant overlap therapy prescribed at discharge: No Contraindication No Overlap Therapy order at DC: Not Indicated - Heart Failure Discharge Requirements CHAPIN/ARB for LVSD if EF <40%: No Reason for no CHAPIN/ARB: Renal impairment Beta qiana at discharge: Yes Exam - Physical Exam Narrative exam: GEN: WDWN, NAD, AWAKE, ALERT, ORIENTATED 3 HEENT: NCAT, EOMI, PERRL, OP Clear NECK: supple, no adenopathy, no thyromegaly, + JVD CVS/HEART: Rrr, NORMAL S1S2, NO JVD, pulses present bilaterally CHEST/LUNGS: CTA B, Symmetrical chest expansion, good air entry bilaterally GI/Abdomen: soft, NTND, good bowel sounds, no guarding or rebound /Bladder: no suprapubic tenderness, no CVA or paraspinal tenderness EXT/Skin: no c/c/e, no obvious rash MSK: FROM x 4 Neuro: CN 2-12 grossly intact, no new focal deficits Psych: calm - Constitutional Vitals: Temp Pulse Resp BP Pulse Ox 98.7 F 90 20 152/90 100 02/06/17 00:22 02/06/17 09:49 02/06/17 00:22 02/06/17 09:49 02/06/17 04:28 Plan Activity: other (no strenous activity until cleared by cardiology) Diet: low salt Follow up with: PRIMARY CAREMD [Primary Care Provider] - 3-5 Days YELENA DELONG MD [Staff Physician] - 7 Days PRAVIN EDOUARD MD [Staff Physician] - 7 Days JOSSY MACIEL MD [Staff Physician] - 7 Days Prescriptions: Acetaminophen/Codeine [Tylenol /Codeine # 3 tab] 1 tab PO Q4H PRN #7 day PRN Reason: Pain, Moderate (4-6) ALBUTEROL Inhaler [ProAir HFA Inhaler] 2 puff IH QID PRN #1 unit PRN Reason: Shortness Of Breath HYDROcodone/APAP 7.5-325 [[place] 7.5-325 mg TAB] 1 each PO BID PRN #10 tablet PRN Reason: Pain Metoprolol [Lopressor TAB] 25 mg PO BID #60 tablet Prednisone [predniSONE 10 mg (6-Day Pack, 21 Tabs)] 10 mg PO .TAPER #1 tab.ds.pk
[2017-02-06 12:27] VITALS: BP 146/67
== END 2017-02-06 16:48 | disposition home or self-care (01) | DRG 286 ==
LOC: ED 17:28 → 4A 01-28 04:52
PROVIDERS: ADMIT Internal Medicine; ATTEND Internal Medicine
PROC: 4A033R1 Measurement of Arterial Saturation, Peripheral, Percutaneous Approach (ICD-10-PCS; 2017-01-29)
PROC: 4A023N8 Measurement of Cardiac Sampling and Pressure, Bilateral, Percutaneous Approach (ICD-10-PCS; principal; 2017-02-02)
PROC: B2111ZZ Fluoroscopy of Multiple Coronary Arteries using Low Osmolar Contrast (ICD-10-PCS; 2017-02-02)
PROC: B2151ZZ Fluoroscopy of Left Heart using Low Osmolar Contrast (ICD-10-PCS; 2017-02-02)
DX: I13.0 Hypertensive heart and chronic kidney disease with heart failure and stage 1 through stage 4 chronic kidney disease, or unspecified chronic kidney disease (principal); I50.23 Acute on chronic systolic (congestive) heart failure; J96.01 Acute respiratory failure with hypoxia; N17.9 Acute kidney failure, unspecified; N18.4 Chronic kidney disease, stage 4 (severe); I16.0 Hypertensive urgency; E87.6 Hypokalemia; E78.5 Hyperlipidemia, unspecified; E11.22 Type 2 diabetes mellitus with diabetic chronic kidney disease; E11.51 Type 2 diabetes mellitus with diabetic peripheral angiopathy without gangrene; D64.9 Anemia, unspecified; I42.9 Cardiomyopathy, unspecified; M19.90 Unspecified osteoarthritis, unspecified site; E11.21 Type 2 diabetes mellitus with diabetic nephropathy; I25.10 Atherosclerotic heart disease of native coronary artery without angina pectoris; I27.20 Pulmonary hypertension, unspecified; M10.9 Gout, unspecified; F10.10 Alcohol abuse, uncomplicated; Z83.3 Family history of diabetes mellitus; Z82.49 Family history of ischemic heart disease and other diseases of the circulatory system; Z88.8 Allergy status to other drugs, medicaments and biological substances
CPT/HCPCS: 36415; 36600; 71010; 71020; 76604; 78582; 80048; 80061; 82803; 82962; 83880; 84132; 84484; 84550; 85025; 85027; 85379; 85610; 85730; 93005; 93010; 93460; 93970; 94640; 96374; A9540; A9558; C1894; J1644; J1815; J1818; J1940; J2250; J3010; J7030; J7040; J7512; Q9967

== ENCOUNTER 2017-06-20 21:09 | Emergency (ER) | payer OTHER ==
[2017-06-20 22:58] LABS: Hematocrit 37.8 % (35.5-45.6); Mean Corpuscular HGB Conc 32 % (32-34); Mean Corpuscular Volume 81 fl (84-94); Platelet Count 166 K/mm3 (140-440); Red Blood Count 4.65 M/mm3 (3.65-5.03); Red Cell Distribution Width 19.8 % (13.2-15.2)
[2017-06-20 23:05] LABS: Mean Corpuscular Hemoglobin 26 pg (28-32)
--- NOTE | 2017-06-20 23:18 | Cat Scan Report ---
FINAL REPORT PROCEDURE: CT HEAD/BRAIN WO CON TECHNIQUE: Computerized tomography of the head was performed without contrast material. HISTORY: Headache x 1 week COMPARISON: No prior studies are available for comparison. FINDINGS: Skull and scalp: Normal. Paranasal sinuses: Normal. Ventricles and subarachnoid spaces: An irregular right frontal intraventricular hyperdense lesion is noted measuring 9 millimeters x 8 millimeters with average Hounsfield units of 55. Cerebrum: No evidence of hemorrhage, acute infarction or mass . Cerebellum and brainstem: No evidence of hemorrhage, acute infarction or mass. Vasculature: Normal. Comments: None. IMPRESSION: An 8 millimeter x 9 millimeter intraventricular lesion is suspicious for intraventricular hemorrhage versus a a mass lesion such as hemangioma. MRI pre and post contrast is recommended..
[2017-06-20 23:33] LABS: Calcium 8.7 mg/dL (8.4-10.2)
--- NOTE | 2017-06-20 23:56 | Emergency Department Report ---
ED Headache HPI - General Chief Complaint: Headache Stated Complaint: HEADACHE Time Seen by Provider: 06/20/17 23:39 Source: patient, old records (cath 01/2017 (included report in transfer paperwork)) Exam Limitations: no limitations - History of Present Illness Initial Comments: 50 year old male with a past medical history hypertension, stage III Kidney disease, type 2 diabetes, CHF, elevated cholesterol, and PAD presents to the hospital complaints of headache 2 weeks. Headache fluctuates between the top of his head and the front of his head. Pain is constant, rated 9/10 in intensity, without aggravating or alleviating factors. Patient denies nausea, vomiting, or vision, focal weakness, focal numbness, recent trauma, or LOC. Patient has neck pain with movement and is having a side to side but no nuchal rigidity. Patient resents elevated blood pressure but states he's been compliant with his blood pressure medication. Patient assumed he was having a sinus headache and has been taking [id number] decongestants for allergy symptoms. Patient takes aspirin 81 mg and Plavix daily. Allergies/Adverse Reactions: Allergies No Known Allergies Allergy (Verified 01/27/17 17:48) Home Medications: Ambulatory Orders Insulin Glargine [Lantus VIAL] 12 units SUB-Q QHS #1 units 02/18/14 Insulin NPH, Human [NovoLIN N] 6 unit SUB-Q AC #1 units 02/18/14 amLODIPine [Norvasc] 10 mg PO QDAY #30 tablet 02/18/14 Clopidogrel [Plavix] 75 mg PO QDAY 05/07/16 ALBUTEROL Inhaler [ProAir HFA Inhaler] 2 puff IH QID PRN #1 unit 02/06/17 Acetaminophen/Codeine [Tylenol /Codeine # 3 tab] 1 tab PO Q4H PRN #7 day HYDROcodone/APAP 7.5-325 [[place] 7.5-325 mg TAB] 1 each PO BID PRN #10 tablet Metoprolol [Lopressor TAB] 25 mg PO BID #60 tablet 02/06/17 Prednisone [predniSONE 10 mg (6-Day Pack, 21 Tabs)] 10 mg PO .TAPER #1 tab.ds.pk 02/06/17 ED Review of Systems ROS: Stated complaint: HEADACHE Other details as noted in HPI Comment: All other systems reviewed and negative ED Past Medical Hx - Past Medical History Previous Medical History?: Yes Hx Hypertension: Yes Hx Diabetes: Yes Hx Deep Vein Thrombosis: No (PT DENIES THIS) Hx Renal Disease: Yes (stage 3) Hx Arthritis: Yes Additional medical history: Elevated cholesterol - Surgical History Past Surgical History?: Yes Additional Surgical History: R foot. - Social History Smoking Status: Never Smoker Substance Use Type: None - Medications Home Medications: Home Medications Medication Instructions Recorded Confirmed Last Taken Type Insulin Glargine [Lantus VIAL] 12 units SUB-Q QHS #1 units 02/18/14 01/28/17 Rx Insulin NPH, Human [NovoLIN N] 6 unit SUB-Q AC #1 units 02/18/14 01/28/17 Rx amLODIPine [Norvasc] 10 mg PO QDAY #30 tablet 02/18/14 01/28/17 05/16/16 08:00 Rx Clopidogrel [Plavix] 75 mg PO QDAY 05/07/16 01/28/17 05/15/16 History ALBUTEROL Inhaler [ProAir HFA 2 puff IH QID PRN #1 unit 02/06/17 Unknown Rx Inhaler] Acetaminophen/Codeine [Tylenol 1 tab PO Q4H PRN #7 day 02/06/17 Unknown Rx /Codeine # 3 tab] HYDROcodone/APAP 7.5-325 [[place] 1 each PO BID PRN #10 tablet 02/06/17 Unknown Rx 7.5-325 mg TAB] Metoprolol [Lopressor TAB] 25 mg PO BID #60 tablet 02/06/17 Unknown Rx Prednisone [predniSONE 10 mg 10 mg PO .TAPER #1 tab.ds.pk 02/06/17 Unknown Rx (6-Day Pack, 21 Tabs)] ED Physical Exam - General Limitations: No Limitations - Other Other exam information: General: No limitations, patient is alert in no acute distress Head exam: Atraumatic, normocephalic Eyes exam: Normal appearance, pupils equal reactive to light, extraocular movements intact ENT: Moist mucous membrane, normal oropharynx Neck exam: Normal inspection, full range of motion, no meningismus nontender Respiratory exam: Clear to auscultation bilateral, no wheezes, rales, crackles Cardiovascular: Normal rate and rhythm, normal heart sounds Abdomen: Soft, nondistended, and nontender, with normal bowel sounds, no rebound, or guarding Extremity: Full range of motion normal inspection no deformity Back: Normal Inspection, full range of motion, no tenderness Neurologic: Alert, oriented x3, cranial nerves intact, no motor or sensory deficit. GCS equals 15, NIH stroke score equals 0 Psychiatric: normal affect, normal mood Skin: Warm, dry, intact ED Course Vital Signs 06/20/17 06/20/17 06/21/17 21:13 21:47 00:05 Temperature 98.7 F 98.7 F 97.9 F Pulse Rate 103 H 105 H 56 L Pulse Rate [ Anterior Throughout] Respiratory 16 20 16 Rate Respiratory Rate [Anterior Throughout] Blood Pressure 185/91 185/91 Blood Pressure 178/97 [Right] O2 Sat by Pulse 99 100 98 Oximetry 06/21/17 06/21/17 00:17 00:54 Temperature Pulse Rate Pulse Rate [ 107 H 117 H Anterior Throughout] Respiratory Rate Respiratory 18 18 Rate [Anterior Throughout] Blood Pressure Blood Pressure [Right] O2 Sat by Pulse Oximetry - Reevaluation(s) Reevaluation #1: 06/21/17 01:02 hr increased after albuter neb 7.5mg, ekg performed after treatment and therefore tachy - Consultations Consultation #1: 06/21/17 23:58 Call placed to [facility] transfer service. Awaiting neurosurgeon call back 06/21/17 00:16 Pt accepted by [facility] Neurosurgeon Dr Linares. awaiting call back from retina subspecialist 06/21/17 00:22 Case d/w Dr Razo Neurosurgeon retina subspecialist. accepted pt for admission. awaiting call back for bed assignment ED Medical Decision Making - Lab Data Result diagrams: 06/20/17 22:30 06/20/17 22:30 Lab Results 06/20/17 06/20/17 Range/Units 22:30 22:30 WBC 9.4 (4.5-11.0) K/mm3 RBC 4.65 (3.65-5.03) M/mm3 Hgb 12.0 (11.8-15.2) gm/dl Hct 37.8 (35.5-45.6) % MCV 81 L (84-94) fl MCH 26 L (28-32) pg MCHC 32 (32-34) % RDW 19.8 H (13.2-15.2) % Plt Count 166 (140-440) K/mm3 Sodium 139 (137-145) mmol/L Potassium 5.4 H (3.6-5.0) mmol/L Chloride 101.7 (98-107) mmol/L Carbon Dioxide 23 (22-30) mmol/L Anion Gap 20 mmol/L BUN 61 H (9-20) mg/dL Creatinine 4.3 H (0.8-1.5) mg/dL Estimated GFR 17 ml/min BUN/Creatinine Ratio 14 % Glucose 312 H (75-100) mg/dL Calcium 8.7 (8.4-10.2) mg/dL - EKG Data -: EKG Interpreted by Me (anterosepta infarct) EKG shows normal: sinus rhythm, axis (12), QRS complexes (128), ST-T waves (lat t inv, no peak t waves) Rate: tachycardia (118) - EKG Data When compared to previous EKG there are: no significant change - Radiology Data Radiology results: report reviewed read by radiology ct head: IMPRESSION: An 8 millimeter x 9 millimeter intraventricular lesion is suspicious for intraventricular hemorrhage versus a a mass lesion such as hemangioma. MRI pre and post contrast is recommended.. - Medical Decision Making Headache secondary to intraventricular hemorrhage versus a mass lesion such as hemangioma. Cardene ordered for blood pressure control goal of systolic 150. Glucose mildly elevated. IV insulin ordered for a glucose reducdtion as well as for mild hyperkalemia. No peaked T waves on EKG. Albuterol 5 also ordered for hyperkalemia. Case discussed with neurosurgeon and Neuro intesivist at [facility] and patient has been accepted for transfer. - Differential Diagnosis migraine, ICH, tension headache, cluster headache, sah Critical Care Time: No Critical care attestation.: If time is entered above; I have spent that time in minutes in the direct care of this critically ill patient, excluding procedure time. ED Disposition Clinical Impression: Chronic renal insufficiency, HTN (hypertension), Hyperkalemia, Intraventricular hemorrhage Disposition: DC/TX-70 ANOTHER TYPE HLTHCARE Is pt being admited?: No Condition: Stable Referrals: PRIMARY CARE, [Primary Care Provider] - 3-5 Days Time of Disposition: 00:33 (accepted by [facility], awaiting bed assignment) - Assessment Assessment Interval: Baseline - Level of Consciousness 1a. Level of Consciousness: alert - LOC Questions 1b. LOC Questions: answers correctly - LOC Command 1c. LOC Commands: performs tasks correctly - Best Gaze 2. Best Gaze: normal - Visual 3. Visual: no visual loss - Facial Palsy 4. Facial Palsy: normal symmetrical movement - Motor Arm 5b. Motor Arm Right: no drift 5a. Motor Arm Left: no drift - Motor Leg 6a. Motor Leg Left: no drift 6b. Motor Leg Right: no drift - Limb Ataxia 7. Limb Ataxia: absent - Sensory 8. Sensory: normal - Best Language 9. Best Language: no aphasia - Dysarthria 10. Dysarthria: normal - Extinction and Inattention 11. Extinction/Inattention: no abnormality - Scoring Total Score: 0 Stroke Severity: No Stroke Symptoms
[2017-06-21] MEDS ORDERED: PROVENTIL IH ONE ×2 (00:09→00:10)
[2017-06-21] MEDS ORDERED: HumuLIN R IV ONE (00:09)
[2017-06-21] MEDS ORDERED: CARDENE 50 MG in NACL 0.9% 250ML 230 ML IV SCH (01:00)
[2017-06-21 02:35] VITALS: BP 141/76
== END 2017-06-21 03:11 | disposition other institution (70) ==
LOC: ED 21:09
DX: E87.5 Hyperkalemia (principal); I61.5 Nontraumatic intracerebral hemorrhage, intraventricular; E11.22 Type 2 diabetes mellitus with diabetic chronic kidney disease; I13.0 Hypertensive heart and chronic kidney disease with heart failure and stage 1 through stage 4 chronic kidney disease, or unspecified chronic kidney disease; N18.3 Chronic kidney disease, stage 3 (moderate); I50.9 Heart failure, unspecified; M19.90 Unspecified osteoarthritis, unspecified site; Z79.4 Long term (current) use of insulin; E78.00 Pure hypercholesterolemia, unspecified
CPT/HCPCS: 36415; 70450; 80048; 82962; 85027; 93005; 93010; 94640; 96365; 96375; 99285; J7050; J1815

== ENCOUNTER 2017-09-21 05:56 | Day surgery (SDC) | payer OTHER ==
[~2017-09-21 05:56] MED LIST changes: +MARCAINE 0.5% INFILTRATI ONE; -XYLOCAINE TOPICAL 4% TP ONE
[2017-09-21] MEDS ORDERED: ANCEF/STERILE WATER 2 GM/20 ML 2 GM/20 ML SYRINGE IV NR (06:00)
[2017-09-21] MEDS ORDERED: NACL 0.9% 1000 ML 1,000 ML IV SCH (06:00)
--- NOTE | 2017-09-21 07:01 | Anesthesia Consultation ---
Anesthesia Consult and Med Hx Date of service: 09/21/17 - Airway Anesthetic Teeth Evaluation: Good ROM Head & Neck: Adequate Mental/Hyoid Distance: Adequate Mallampati Class: Class II Intubation Access Assessment: Probably Good - Pulmonary Exam CTA: Yes - Cardiac Exam Cardiac Exam: No Murmur - Pre-Operative Health Status ASA Pre-Surgery Classification: ASA4 Proposed Anesthetic Plan: General - Pulmonary Hx Smoking: No SOB: Yes (Occas with exertion. ) - Cardiovascular System Hx Hypertension: Yes (x 20 yrs) Hx Peripheral Vascular Disease: Yes - Central Nervous System Hx Psychiatric Problems: No - Endocrine Hx Renal Disease: Yes - Other Systems Hx Cancer: No
[2017-09-21] MEDS ORDERED: NACL BACTERIOSTATIC INFILTRATI ONE (07:02)
--- NOTE | 2017-09-21 07:05 | Anesthesia Day of Surgery ---
Anesthesia Day of Surgery - Day of Surgery Patient Examined: Yes Patient H&P Reviewed: Yes Patient is NPO: Yes Beta Blockers: Yes Cardiac Clearance: Yes (Nonischemic CMP-EF 35-40%. Pulm HTN 55.Calcified LAD w/ o sig stenosis.)
[2017-09-21 07:11] LABS: Basophils # (Auto) 0.1 K/mm3 (0.0-0.1); Basophils % (Auto) 1.6 % (0.0-1.8); Eosinophils # (Auto) 0.2 K/mm3 (0.0-0.4); Eosinophils % (Auto) 2.7 % (0.0-4.3); Hematocrit 36.8 % (35.5-45.6); Lymphocytes # (Auto) 1.2 K/mm3 (1.2-5.4); Lymphocytes % (Auto) 21.5 % (13.4-35.0); Mean Corpuscular HGB Conc 33 % (32-34); Mean Corpuscular Volume 79 fl (84-94); Monocytes # (Auto) 0.7 K/mm3 (0.0-0.8); Monocytes % (Auto) 12.5 % (0.0-7.3); Platelet Count 237 K/mm3 (140-440); Red Blood Count 4.67 M/mm3 (3.65-5.03)
[2017-09-21 07:14] LABS: Mean Corpuscular Hemoglobin 26 pg (28-32)
[2017-09-21] MEDS ORDERED: RIFADIN ONE (07:16)
[2017-09-21] MEDS ORDERED: MARCAINE 0.5% INFILTRATI ONE ×2 (07:16→09:48)
[2017-09-21] MEDS ORDERED: HEPARIN 10,000 UNITS/10 ML ONE (07:16)
[2017-09-21] MEDS ORDERED: NACL 0.9% 500 ML 500 ML ONE (07:17)
[2017-09-21] MEDS ORDERED: GELFOAM TP ONE (07:18)
[2017-09-21] MEDS ORDERED: GELFOAM POWDER 1GM MM ONE (07:19)
[2017-09-21 07:21] LABS: Calcium 8.6 mg/dL (8.4-10.2)
[2017-09-21] MEDS ORDERED: PROTAMINE SULFATE ONE (07:54)
[2017-09-21] MEDS ORDERED: PAPAVERINE ONE (07:54)
[2017-09-21] MEDS ORDERED: DILAUDID ONE (07:57)
[2017-09-21] MEDS ORDERED: VERSED ONE (07:57)
[2017-09-21] MEDS ORDERED: DIPRIVAN 10 MG/ML IV ONE (07:58)
[2017-09-21] MEDS ORDERED: XYLOCAINE MPF 2% ONE (07:58)
[2017-09-21] MEDS ORDERED: MARCAINE-EPI 0.5%-1:200,000 INFILTRATI ONE (08:46)
[2017-09-21] MEDS ORDERED: MARCAINE 0.5% 0 ML INFILTRATI ONE (08:46)
[2017-09-21] MEDS ORDERED: HEPARIN 10,000 UNITS/10 ML IV ONE (09:12)
[2017-09-21] MEDS ORDERED: NACL 0.9% 500 ML IV ONE (09:12)
--- NOTE | 2017-09-21 10:06 | Short Stay Summary ---
Short Stay Documentation Date of service: 09/21/17 Narrative H&P: See H&P - History H&P: obtained from office - Allergies and Medications Current Medications: Allergies No Known Allergies Allergy (Verified 09/16/17 17:15) Home Medications Medication Instructions Recorded Confirmed Last Taken Type Insulin Glargine [Lantus VIAL] 12 units SUB-Q QHS #1 units 02/18/14 09/21/17 21:30 Rx Insulin NPH, Human [NovoLIN N] 6 unit SUB-Q AC #1 units 02/18/14 09/21/17 Rx amLODIPine [Norvasc] 10 mg PO QDAY #30 tablet 02/18/14 09/16/17 09/21/17 04:30 Rx Clopidogrel [Plavix] 75 mg PO QDAY 05/07/16 09/21/17 07/22/17 History ALBUTEROL Inhaler [ProAir HFA 2 puff IH QID PRN #1 unit 02/06/17 09/21/17 3 Weeks Ago Rx Inhaler] ~08/31/17 Metoprolol [Lopressor TAB] 25 mg PO BID #60 tablet 02/06/17 09/16/17 09/21/17 04 :30 Rx Active Medications Cefazolin Sodium (Ancef/Sterile Water 2 Gm/20 Ml) 2 gm in 20 mls @ 80 mls/hr IV PREOP NR; Protocol Stop: 09/21/17 12:00 Sodium Chloride (Nacl 0.9% 1000 Ml) 1,000 mls @ 42 mls/hr IV DIRECT THEO - Brief post op/procedure progress note Date of procedure: 09/21/17 Pre-op diagnosis: End-Stage Renal Disease Post-op diagnosis: same Procedure: Creation of Left Brachiocephalic Arteriovenous Fistula Anesthesia: GETA Surgeon: SANTANA VÁZQUEZ Estimated blood loss: minimal Pathology: none Condition: stable - Disposition Condition at discharge: Good Disposition: DC-01 TO HOME OR SELFCARE Short Stay Discharge Plan Activity: other (no heavy lifting with left arm) Wound: open to air, keep clean and dry, other (okay to wash the wound with soap and water but do not soak in water) Follow up with: SANTANA VÁZQUEZ MD [Staff Physician] - 14 Days Prescriptions: HYDROcodone/APAP 7.5-325 [[place] 7.5/325] 1 each PO Q6HR PRN #40 tablet PRN Reason: Pain
--- NOTE | 2017-09-21 10:09 | Operative Report ---
Operative Report Operative Report: Date of procedure: 09/21/2017 Pre-operative diagnosis: End-Stage Renal Disease Post-operative diagnosis: End-Stage Renal Disease Procedure(s): Creation of Left Brachial Artery to Cephalic Vein Arteriovenous Fistula Surgeon: Gustavo Portillo MD Aluminum Boats Assembler: None Anesthesia: Gen. Endotracheal Anesthesia EBL: Minimal Counts: Correct Complications: None Condition: Stable Findings: Successful creation of left brachiocephalic arteriovenous fistula was probable throughout the completion of the case. Specimen: None Indications: The patient is a 62-year-old male with a history of end-stage renal disease who was in need of long-term access and had adequate vein for creation of a left arm AV fistula. He was given the risks, benefits, and alternative procedures of creation of a left arm AV fistula and consented to the procedure. Description of Procedure: The patient was brought to the operating room and laid in supine position after general endotracheal anesthesia was administered the patient was prepped and draped in normal sterile fashion. After anesthetizing the skin a transverse incision was created just below the antecubital crease. Dissection was carried down to the the cephalic vein using sharp dissection. The vein was dissected out both proximally and distally and suture ligated and divided distally. I then ran a 3 Lala proximally in the vein, to ensure patency of the vein. Then flushed the vein with heparinized saline and flow was controlled with a bulldog clamp. I then dissected out the brachial artery through this incision circumferentially both proximal and distal and controlled the artery with vessel loops. I then placed the vessel loops on tension controlling the flow through the artery and created an arteriotomy using an 11 blade and Vazquez scissors. I created an end to side anastomosis between the cephalic vein and brachial artery using a 6-0 Prolene in running fashion. Prior to completing the anastomosis I flushed the artery both proximally and distally and then advanced a 3 Lala proximally to break the spasm in the artery. I then completed the anastomosis and removed all vessel loops allowing flow into the fistula which had an excellent thrill. I achieved hemostasis with a combination of direct pressure and electrocautery. Once hemostasis was achieved I anesthetized the wound with Marcaine. I then closed the wound in 2 layers and 3-0 Vicryl in a running fashion to close the deep dermal layer and 4- 0 Monocryl in a running fashion in the subcuticular layer. I dressed the wound with Surgicel. The patient tolerated the procedure well, all sponge needle and instrument counts were correct. The patient was taken to recovery in stable condition.
[2017-09-21] MEDS ORDERED: TYLENOL PO PRN (10:22)
[2017-09-21] MEDS ORDERED: DILAUDID IV PRN (10:22)
[2017-09-21] MEDS ORDERED: ZOFRAN IV PRN (10:22)
[2017-09-21 12:57] VITALS: BP 131/78
== END 2017-09-21 12:45 | disposition home or self-care (01) ==
LOC: OR 05:56
PROVIDERS: ATTEND Surgery Vascular Surgery
DX: E11.22 Type 2 diabetes mellitus with diabetic chronic kidney disease (principal); I13.2 Hypertensive heart and chronic kidney disease with heart failure and with stage 5 chronic kidney disease, or end stage renal disease; I50.9 Heart failure, unspecified; N18.6 End stage renal disease; E78.00 Pure hypercholesterolemia, unspecified; Z99.2 Dependence on renal dialysis; Z98.890 Other specified postprocedural states; Z79.01 Long term (current) use of anticoagulants; Z79.899 Other long term (current) drug therapy; Z79.4 Long term (current) use of insulin; Z87.891 Personal history of nicotine dependence; Z82.49 Family history of ischemic heart disease and other diseases of the circulatory system; Z83.3 Family history of diabetes mellitus; Z86.79 Personal history of other diseases of the circulatory system; Z89.421 Acquired absence of other right toe(s)
CPT/HCPCS: 36415; 36821; 80048; 82962; 85025; J0690; J1170; J1644; J2250; J2405; J2704; J7030; J7040; A4649; J2440; J2720; J3490

== ENCOUNTER 2018-03-23 09:54 | Outpatient (CLI) | payer OTHER, MEDICARE | END 2018-03-23 09:55 | disposition home or self-care (01) | LOC: WOUND 09:54 | CPT/HCPCS: 11042; G0463; 99215 ==

== ENCOUNTER 2018-03-30 08:45 | Outpatient (CLI) | payer OTHER, MEDICARE | END 2018-03-30 08:46 | disposition home or self-care (01) | LOC: WOUND 08:45 | CPT/HCPCS: 99213; G0463 ==

== ENCOUNTER 2018-05-07 13:10 | Day surgery (SDC) | payer OTHER, MEDICARE ==
[2018-05-07] MEDS ORDERED: HEPARIN/NS 5000 UNIT/500ML(CATH LAB) 1,000 ML IR ONE (14:33)
[2018-05-07] MEDS ORDERED: HEPARIN 10,000 UNITS/10 ML ONE (14:33)
[2018-05-07] MEDS ORDERED: XYLOCAINE 1%/ EPI 1:100,000 INFILTRATI ONE (14:34)
[2018-05-07] MEDS ORDERED: ANCEF/STERILE WATER 2 GM/20 ML 2 GM/20 ML SYRINGE IV ONE (14:34)
[2018-05-07 14:42] LABS: INR 1.27 (0.87-1.13)
[2018-05-07 14:43] LABS: Partial Thromboplastin Time 29.2 Sec. (24.2-36.6)
[2018-05-07] MEDS ORDERED: NACL 0.9% 500 ML 500 ML ONE (16:02)
[2018-05-07] MEDS: VERSED ONE ×2 (16:13→16:51)
[2018-05-07] MEDS: SUBLIMAZE ONE ×3 (16:13→16:51)
[2018-05-07] MEDS ORDERED: XYLOCAINE 2% INFILTRATI ONE (16:13)
[2018-05-07] MEDS ORDERED: BENADRYL ONE (16:41)
--- NOTE | 2018-05-07 17:36 | Operative Report ---
Operative Report Operative Report: Operative note: Date: 05/07/2018 Preoperative diagnosis: Malfunction of left arm AV fistula Postoperative diagnosis: Same. Operation: Fistulogram, angioplasty of cephalic vein Surgeon: Sherita Ruvalcaba. Asst.: None Anesthesia: Local with moderate sedation EBL: Minimal Findings: Occluded cephalic vein Indications: 63-year-old gentleman that has end-stage renal disease and missed dialysis today due to malfunction of his left arm fistula. He was brought to the hospital, discussed risks, benefits and alternative procedure and chose to proceed and signed informed consent. Operative details: She was brought to the Email Marketing Manager and placed in supine positi on. His left arm was prepped and draped in sterile fashion. Timeout was performed. Using standard micropuncture technique and a fistula was accessed in the venous direction. Micropunches sheath was changed to 6 [place] access sheath over Bentson wire. Patient showed complete occlusion of cephalic vein. Using a vertebral catheter and V18 wire that was changed to advantage Glidewire that was able to be maneuvered through the occluded portion successfully. Patient was heparinized with 2000 units of heparin. I changed to V18 wire again and used a 5 mm cutting balloon and inflated in the occluded portion. Next, I used 8 x 60 [place] balloon and performed angioplasty of cephalic vein. There was residual portions of proximal cephalic vein was narrowing. I changed to conquest 8 x 40 balloon and performed angioplasty again. There was a good flow in the cephalic vein afterwards. Wire was removed and exit site suture was [id number] 4-0 chromic. Patient tolerated procedure well and was transferred to PACU in stable condition.
--- NOTE | 2018-05-07 17:38 | Short Stay Summary ---
Short Stay Documentation Date of service: 05/07/18 - History H&P: dictated (done in chart) - Allergies and Medications Current Medications: Allergies No Known Allergies Allergy (Verified 09/16/17 17:15) Home Medications Medication Instructions Recorded Confirmed Last Taken Type Insulin Glargine [Lantus VIAL] 12 units SUB-Q QHS #1 units 02/18/14 03/19/18 01/12/18 Rx 12 units Clopidogrel [Plavix] 75 mg PO QDAY 05/07/16 03/19/18 07/22/17 History ALBUTEROL Inhaler (OR & NICU) 2 puff IH QID PRN #1 unit 02/06/17 03/19/18 3 Weeks Ago Rx [ProAir HFA Inhaler] ~08/31/17 Insulin NPH, Human [NovoLIN N] 3 unit SUB-Q AC 01/13/18 03/19/18 01/12/18 History 3 units Clopidogrel [Plavix] 75 mg PO QDAY #30 tablet 03/20/18 Unknown Rx Metoprolol [Lopressor TAB] 25 mg PO BID #60 tablet 03/20/18 Unknown Rx amLODIPine [Norvasc] 10 mg PO QDAY #30 tablet 03/20/18 Unknown Rx - Brief post op/procedure progress note Date of procedure: 05/07/18 Pre-op diagnosis: left arm AV fistula malfunction Post-op diagnosis: same Procedure: Fistulogram and angioplasty of cephalic vein. Anesthesia: MAC Findings: Occluded cephalic vein Surgeon: STEFF FISHER Estimated blood loss: minimal Condition: stable - Disposition Condition at discharge: Good Disposition: DC-01 TO HOME OR SELFCARE Short Stay Discharge Plan Diet: renal Follow up with: KAREN MURPHY MD [Primary Care Provider] - 7 Days
[2018-05-07 18:19] VITALS: BP 113/69
== END 2018-05-07 18:27 | disposition home or self-care (01) ==
LOC: CATHLABREC 13:10
PROVIDERS: ATTEND Surgery Vascular Surgery
DX: T82.858A Stenosis of other vascular prosthetic devices, implants and grafts, initial encounter (principal); I13.2 Hypertensive heart and chronic kidney disease with heart failure and with stage 5 chronic kidney disease, or end stage renal disease; E11.22 Type 2 diabetes mellitus with diabetic chronic kidney disease; N18.6 End stage renal disease; I50.9 Heart failure, unspecified; E11.51 Type 2 diabetes mellitus with diabetic peripheral angiopathy without gangrene; E78.00 Pure hypercholesterolemia, unspecified; M19.90 Unspecified osteoarthritis, unspecified site; Z79.899 Other long term (current) drug therapy; Z79.4 Long term (current) use of insulin; Z79.01 Long term (current) use of anticoagulants; Z87.891 Personal history of nicotine dependence; Z86.718 Personal history of other venous thrombosis and embolism; Z99.2 Dependence on renal dialysis; Z98.890 Other specified postprocedural states; Y83.8 Other surgical procedures as the cause of abnormal reaction of the patient, or of later complication, without mention of misadventure at the time of the procedure; Y92.89 Other specified places as the place of occurrence of the external cause
CPT/HCPCS: 36415; 36902; 84132; 85610; 85730; 99156; 99157; C1725; C1751; C1769; C1894; J0690; J1200; J1644; J2250; J3010; J7040; Q9967